=== PATIENT | male | born 1965 | race Hispanic/Latino ===

== ENCOUNTER 2020-06-27 12:20 | Observation (INO) | payer SELFPAY ==
[~2020-06-27] VITALS: Ht 167.6 cm; Wt 85.3 kg
[~2020-06-27 12:20] MED LIST: ASPIR 8181 MG; AUGMENTIN 875-1 EACH PO; CELEXA10 MG PO; ENALAPRIL MALEA20 MG PO; FENOFIBRATE145 MG PO; GLIPIZIDE XL5 MG PO; LISINOPRIL-HCT1 EACH PO; LORAZEPAM1 MG PO; METFORMIN HCL500 M2 PO; METOCLOPRAMIDE10 MG PO; METOPROLOL SUCC50 MG PO; SUMATRIPTAN SUC25 MG PO; TOPIRAMATE25 MG PO; TYLENOL WITH C1 EACH PO; ZOFRAN ODT4 MG PO
[2020-06-27] MEDS ORDERED: ONDANSETRON HCL INJ 2MG/ML 2ML 2 MG/ML VIAL IV STA (13:06)
[2020-06-27] MEDS ORDERED: ASPIRIN 325 MG TAB PO ONE (13:15)
[2020-06-27] MEDS ORDERED: ASPIRIN 81 MG CHEW TAB PO ONE (13:15)
--- NOTE | 2020-06-27 13:23 | Emergency Department Note ---
History of Present Illnes History of Present Illness Chief Complaint: Chest Pain History of Present Illness This is a 55 year old male Chief Complaint Comment PT STATED RIGHT RUBY E CHEST PAIN FOR 2 DAYS, HURTS WITH MOVEMENT AND BREATHING, PT HAS A CARDIAC HX. . Historian: Patient Arrival Mode: Car Onset (how long ago): day(s) (1) Location: right side chest pain Quality: dull Radiation: Reports non-radiation Onset quality: gradual Duration (how long): day(s) Timing of current episode: intermittent Progression: waxing and waning Context: Denies recent illness, Denies recent surgery, Denies recent immobilization, Denies recent travel, Denies trauma/injury, Denies new medications, Denies hx of DVT/PE, Denies non-compliance w/ medications, Denies other Relieving factors: none Exacerbating factors: none Associated symptoms: Reports chest pain Treatments prior to arrival: none Past Medical/Family History Physician Review I have reviewed the patient's past medical and family history. Any updates have been documented here. Past Medical History Recent Fever: No Clinical Suspicion of Infectio: No New/Unexplained Change in Ment: No Past Medical History: Hypertension, Diabetes, [place], Chronic Back Pain Other Medical History: high cholesterol Other Surgery: CARDIAC STENT Social History Smoking Cessation: Current every day smoker Counseling Performed: No Alcohol Use: None Any Illegal Drug Use: No Other Any Pre-Existing Lines (PICC,: No Review of Systems Review of Systems Constitutional: Reports no symptoms EENTM: Reports no symptoms Cardiovascular: Reports as per HPI, Reports chest pain Respiratory: Reports no symptoms Gastrointestinal: Reports no symptoms Genitourinary: Reports no symptoms Musculoskeletal: Reports no symptoms Integumentary: Reports no symptoms Neurological: Reports no symptoms Psychological: Reports no symptoms Endocrine: Reports no symptoms Hematological/Lymphatic: Reports no symptoms Physical Exam Related Data Allergies: Coded Allergies: No Known Allergies (Unverified , 03/04/16) Triage Vital Signs Vital Signs Date Time Temp Pulse Resp B/P (MAP) Pulse Ox O2 Delivery O2 Flow Rate FiO2 06/27/20 12:20 98.4 98 18 152/88 98 Vital signs reviewed: Yes Physical Exam CONSTITUTIONAL Constitutional: Present well-developed, Present well-nourished HENT HENT: Present normocephalic, Present atraumatic, Present oropharynx clear/moist, Present nose normal HENT L/R: Present left ext ear normal, Present right ext ear normal EYES Eyes: Reports PERRL, Reports conjunctivae normal NECK Neck: Present ROM normal PULMONARY Pulmonary: Present effort normal, Present breath sounds normal CARDIOVASCULAR Cardiovascular: Present regular rhythm, Present heart sounds normal, Present capillary refill normal, Present normal rate GASTROINTESTINAL Abdominal: Present soft, Present nontender, Present bowel sounds normal GENITOURINARY Genitourinary: Present exam deferred SKIN Skin: Present warm, Present dry MUSCULOSKELETAL Musculoskeletal: Present ROM normal NEUROLOGICAL Neurological: Present alert, Present oriented x 3, Present no gross motor or sensory deficits PSYCHOLOGICAL Psychological: Present mood/affect normal, Present judgement normal Results Laboratory Lab results reviewed: Yes Imaging Imaging results reviewed: Yes Procedures 12 Lead ECG Interpretation ECG Interpretation : ECG: ECG 1 [facility]: Interpreted by ED physician Date: Jun 27, 2020 Time: 12:26 Rhythm: sinus rhythm Rate: normal BPM: 78 QRS axis: normal Conduction: incomplete RBBB ST segments normal: Yes T waves normal: Yes Assessment & Plan Medical Decision Making MDM angina ACS Reassessment Reassessment BETTER Assessment & Plan Final Impression: (1) Hyperglycemia (2) Chest pain Depart Disposition: ADMITTED Last Vital Signs Date Time Temp Pulse Resp B/P (MAP) Pulse Ox O2 Delivery O2 Flow Rate FiO2 06/27/20 12:20 98.4 98 18 152/88 98 Home Meds Reported Medications Ondansetron (ZOFRAN ODT) 4 Mg Tab.rapdis, 4 MG PO Q6H, TAB 03/04/16 Acetaminophen With Codeine (TYLENOL WITH CODEINE #3 TABLET) 1 Each Tablet, 300 MG PO Q4HR, TAB 03/04/16 Amoxicillin/Potassium Clav (AUGMENTIN 875-125 TABLET) 1 Each Tablet, 875 MG PO DAILY, #30 TAB 03/04/16 Enalapril Maleate (ENALAPRIL MALEATE) 20 Mg Tablet, 10 MG PO BID 03/04/16 Aspirin (ASPIR 81) 81 Mg Tablet.dr 03/04/16 Citalopram Hydrobromide (CELEXA) 10 Mg Tablet, 1 TAB PO DAILY 03/04/16 Glipizide (GLIPIZIDE XL) 5 Mg Tab.er.24, 1 TAB PO DAILY 03/04/16 Lorazepam (LORAZEPAM) 1 Mg Tablet, 1 MG PO BID PRN for ANXIETY, TAB 03/04/16 Lisinopril/Hydrochlorothiazide (LISINOPRIL-HCTZ 20-12.5 MG TAB) 1 Each Tablet, 1 TAB PO DAILY 03/04/16 Fenofibrate Nanocrystallized (FENOFIBRATE) 145 Mg Tablet, 1 TAB PO DAILY 03/04/16 Topiramate (TOPIRAMATE) 25 Mg Tablet, 50 MG PO BID, #30 TAB 03/04/16 Metoprolol Succinate (METOPROLOL SUCCINATE) 50 Mg Tab.er.24h, 50 MG PO BID, MG 03/04/16 Sumatriptan Succinate (SUMATRIPTAN SUCCINATE) 25 Mg Tablet, 100 MG PO DAILY, #30 TAB 03/04/16 Metoclopramide Hcl (METOCLOPRAMIDE HCL) 10 Mg Tablet, 10 MG PO BID, TAB 03/04/16 Metformin Hcl (METFORMIN HCL ER) 500 Mg Tab.er.24, 1000 MG PO BID, #60 TAB 03/04/16 Medications in the ED Aspirin 325 mg QAM PO ; Start 06/28/20 at 09:00; Stop 07/28/20 at 08:59 Aspirin 81 mg PRN ONCE PO ; Start 06/27/20 at 13:15; Stop 06/27/20 at 13:16; Status DC Aspirin 325 mg ONCE ONCE PO ; Start 06/27/20 at 13:15; Stop 06/27/20 at 13:16; Status DC Morphine Sulfate 2 mg ONCE ONCE IV ; Start 06/27/20 at 13:30; Stop 06/27/20 at 13:31 Ondansetron HCl 4 mg NOW STAT IV ; Start 06/27/20 at 13:06; Stop 06/27/20 at 13:15; Status DC NEGRO PTAEL MD Jun 27, 2020 13:22
--- NOTE | 2020-06-27 13:23 | Diagnostic Imaging Report ---
EXAMINATION: CXR 1 VEW - HOPD INDICATION: Chest pain. COMPARISON: None FINDINGS: TUBES and LINES: None. LUNGS: Normal lung volumes. Lungs are clear. No consolidations. PLEURA: No pleural effusion or pneumothorax. HEART AND MEDIASTINUM: The cardiomediastinal silhouette is unremarkable. BONES AND SOFT TISSUES: No acute osseous lesion. Soft tissues are unremarkable. UPPER ABDOMEN: No free air under the diaphragm. IMPRESSION: No acute thoracic radiographic abnormality. Signed by: Griselda Nieto MD on 06/27/2020 1:19 PM
[2020-06-27] MEDS ORDERED: MORPHINE SULFATE INJ 4 MG/ML INJ 1ML IV ONE (13:30)
[2020-06-27] MEDS ORDERED: INSULIN REGULAR, HUMAN 100 UNIT/1 ML 3ML VIAL IV ONE (13:30)
--- OUTSIDE RECORDS SUMMARY | 2020-06-27 13:31 | XMS REPORT | Clinical Summary ---
Author Author [facility] Organization [facility] Address Unknown Phone Unavailable Care Team Providers Care List Of [employer] Name Role Phone Cindy Mackenzie MD PCP Allergies Comments Active Allergy Reactions Severity Noted Date Abdominal pain Acetaminophen-Codeine 02/26/2019 Medications End Date Status Medication Sig Dispensed Refills Start Date Active aspirin (ASPIRIN) 81 mg Chew and 90 tablet 3 chewable swallow 1 8 tabletIndications: tablet by [facility] care mouth daily. Active omeprazole (PRILOSEC) 20 Take 1 90 capsule 3 0 mg delayed release capsule by 9 capsuleIndications: mouth every Dysphagia, unspecified morning type (before breakfast). Active nitroGLYCERIN (NITROSTAT) Dissolve 1 100 tablet 3 0.4 mg sublingual tablet under 9 tabletIndications: H/O the tongue heart artery stent every 5 minutes as needed, up to 3 times. If chest pain persists, call 911. Active ibuprofen (MOTRIN) 400 mg Take 1 tablet 60 tablet 1 tabletIndications: Chest by mouth 9 wall pain every 6 hours as needed for Pain (take with food). Active lancets 28 1 Each 3 300 Each 3 gaugeIndications: times daily 9 Inadequately controlled Use 2 times diabetes mellitus weekly as directed. Active blood glucose test 1 Each by 300 Each 6 04/05/2 01 stripsIndications: MISCELLANEOUS 9 Inadequately controlled route 3 times diabetes mellitus daily. Active gabapentin (NEURONTIN) Take 2 180 capsule 3 100 mg capsules by 9 capsuleIndications: mouth 3 times Neuropathy daily. Active fenofibrate Take 1 tablet 90 tablet 2 nanocrystallized (TRICOR) by mouth 9 145 mg tabletIndications: daily. Hyperlipidemia, unspecified hyperlipidemia type Active blood glucose meter Use as 1 Kit 0 directed 3 9 times daily. Active metFORMIN (GLUCOPHAGE) Take 2 360 tablet 0 500 mg tabletIndications: tablets by 0 Inadequately controlled mouth 2 times diabetes mellitus daily (with meals). Active insulin detemir U-100 Inject 35 21 Pen 2 01/28 (LEVEMIR FLEXTOUCH) 100 Units under 0 unit/mL (3 mL) the skin 2 PenIndications: times daily. Inadequately controlled diabetes mellitus Active insulin aspart U-100 Inject 10 20 Pen 1 02/11 (NOVOLOG FLEXPEN U-100 Units under 0 INSULIN) 100 unit/mL (3 the skin 3 mL) penIndications: times daily Inadequately controlled (before diabetes mellitus meals). Active atorvastatin (LIPITOR) 80 Take 1 tablet 90 tablet 1 mg tabletIndications: H/O by mouth at 0 heart artery stent bedtime nightly. Active carvediloL (COREG) 3.125 Take 1 tablet 180 tablet 3 mg tabletIndications: H/O by mouth 2 0 heart artery stent times daily (with meals). Active isosorbide mononitrate Take 1 tablet 90 tablet 0 0 (IMDUR) 60 mg extended by mouth 0 release every tabletIndications: H/O morning. heart artery stent Active ticagrelor (BRILINTA) 90 Take 1 tablet 90 tablet 0 mg tabletIndications: H/O by mouth 2 0 heart artery stent times daily. Active tiotropium (SPIRIVA WITH Inhale 1 90 capsule 1 0 HANDIHALER) 18 mcg capsule by 0 inhalation mouth daily. capsuleIndications: History of emphysema Active albuterol 90 Inhale 2 8.5 g 3 mcg/actuation Puffs by 0 inhalerIndications: mouth 4 times History of emphysema daily as needed for Wheezing. Active lisinopriL (PRINIVIL, Take 1 tablet 90 tablet 3 ZESTRIL) 20 mg by mouth 0 tabletIndications: daily. Essential hypertension Active pen needle, diabetic 31 Inject under 3 Box 6 0 gauge x 3/16" the skin 4 0 needlesIndications: times daily. Inadequately controlled diabetes mellitus 02/12/2020 Discontinued (Reorder) tiotropium (SPIRIVA WITH Inhale 1 90 capsule 1 0 HANDIHALER) 18 mcg capsule by 8 inhalation mouth daily. capsuleIndications: History of emphysema 08/27/2019 tropicamide (MYDRIACYL) Instill 1 15 mL 0 0.5 % ophthalmic Drop in each 9 solutionIndications: eye once as Inadequately controlled needed for up diabetes mellitus to 1 dose (for poor retina scan image). 02/12/2020 Discontinued (Reorder) atorvastatin (LIPITOR) 80 Take 1 tablet 90 tablet 3 mg tabletIndications: H/O by mouth at 9 heart artery stent bedtime nightly. 02/12/2020 Discontinued (Reorder) carvedilol (COREG) 3.125 Take 1 tablet 90 tablet 3 mg tabletIndications: H/O by mouth 2 9 heart artery stent times daily (with meals). 02/12/2020 Discontinued (Reorder) isosorbide mononitrate Take 1 tablet 30 tablet 3 0 (IMDUR) 60 mg extended by mouth 9 release every tabletIndications: H/O morning. heart artery stent 02/12/2020 Discontinued (Reorder) ticagrelor (BRILINTA) 90 Take 1 tablet 90 tablet 1 mg tabletIndications: H/O by mouth 2 9 heart artery stent times daily. 02/12/2020 Discontinued (Reorder) metFORMIN (GLUCOPHAGE) Take 2 360 tablet 3 500 mg tabletIndications: tablets by 9 Inadequately controlled mouth 2 times diabetes mellitus daily (with meals). 06/15/2020 Discontinued (Reorder) pen needle, diabetic 31 Inject under 3 Box 6 0 gauge x 3/16" the skin 4 9 needlesIndications: times daily. Inadequately controlled diabetes mellitus 02/12/2020 Discontinued (Reorder) insulin aspart U-100 Take 3 times 20 Pen 1 06/0 7/201 (NOVOLOG FLEXPEN U-100 daily under 9 INSULIN) 100 unit/mL (3 skin if mL) penIndications: sugars Inadequately controlled 100-200- take diabetes mellitus 4 units; take 6 units if 201-250 ; take 8 units if sugars 251-300;take1 0 unit if sugars 301-350; take 12 Units if 351-400. 02/12/2020 Discontinued (Reorder) lisinopril (PRINIVIL, Take 1 tablet 90 tablet 3 ZESTRIL) 10 mg by mouth 9 tabletIndications: daily. Essential hypertension 02/12/2020 Discontinued (Reorder) insulin detemir U-100 Inject 35 21 Pen 2 03/31 (LEVEMIR FLEXTOUCH) 100 Units under 9 unit/mL (3 mL) the skin 2 PenIndications: times daily. Inadequately controlled diabetes mellitus 02/12/2020 Discontinued (Dose adjustmen t) lisinopriL (PRINIVIL, Take 1 tablet 90 tablet 0 ZESTRIL) 10 mg by mouth 0 tabletIndications: daily. Essential hypertension Active Problems Problem Noted Date Sleep apnea 02/28/2019 Anemia 02/28/2019 History of stroke 02/28/2019 H/O heart artery stent 02/28/2019 Dysphagia 02/28/2019 Vitamin D deficiency 07/14/2018 Chest pain in adult 02/11/2018 Seizure disorder- since 21 yrs age - on phenytoin ER 100 tid ; no records 11/27/2017 Neuropathy-on gabapentin 600 tid 11/27/2017 Hx of migraine headaches- on topomax 100 bid per neur ology at [facility] 11/27/2017 aria Cervical disc herniation- per MRI 04/210711/27/2017 Lumbar disc herniation with radiculopathy- per MRI 210611/27/2017 History of melena 11/27/2017 History of lupus- 3 yrs back - no records available - per pt history 11/27/2017 History of emphysema- no records 11/27/2017 History of sleep apnea - no records 11/27/2017 HTN (hypertension) 08/31/2017 Hyperlipidemia 08/31/2017 Inadequately controlled diabetes mellitus 08/31/2017 S/P coronary artery stent placement 08/31/2017 Slurred speech 08/31/2017 Lower urinary tract symptoms (LUTS) 08/31/2017 History of substance abuse- cocaine and amphetamine p er [facility] 08/31/2017 records apr 2017 Hematochezia 08/31/2017 Smoking 08/31/2017 Coronary artery disease involving nativ e coronary artery of [place] heart without angina pectoris Type 2 diabetes mellitus with diabetic polyneuropathy, with long-term current use of insulin Diabetes mellitus Right sided weakness Encounters Care Team Description Date Type Specialty Cindy Mackenzie MD Medications 06/15/2020 Refill Family Practice Cindy Mackenzie MD NO SHOW ENCOUNTER (Primary Dx) 02/26/2020 Telephonic Family Practice Encounter Cindy Mackenzie MD Respiratory symptoms (Primary Dx); Inadequately controlled diabetes mellitus; H/O heart artery stent; Essential hypertension; History of emphysema- no records 02/12/2020 Telephonic Family Practice Encounter after 06/27/2019 Immunizations Name Administration Dates Next Due Influenza Vaccine, 08/31/2017 (Deferred: Patim[place] nt Refused) Seasonal, Injectable PPV 23 (Pneumococcal 07/14/2018 (Deferred: - pt stated he received the Polysaccharide 23 Valent) vaccine last year.) Pneumococcal 10/30/2018 <Unspecified> Td <Unspecified> 10/30/2018 Family History Medical History Relation Name Comments Heart attack Father Diabetes Maternal Grandfather Heart attack Maternal Grandfather Heart attack Maternal Grandmother Diabetes Mother Diabetes Paternal Grandfather Diabetes Paternal Grandmother Heart attack Paternal Grandmother Diabetes Paternal Uncle Relation Name Status Comments Father Maternal Grandfather Maternal Grandmother Mother Paternal Grandfather Paternal Grandmother Paternal Uncle Social History Date Tobacco Use Types Packs/Day Years Used Current Every Day Smoker Smokeless Tobacco: Never Used Tobacco Cessation: Counseling Given: No Comments: would like to try nicotine patch Drinks/Week oz/Week Comments Alcohol Use 4 Cans of beer 4.0 Yes Food Insecurity Answer Date Recorded Within the past 12 months, you worried that your Never pawel e 02/28/2019 food would run out before you got money to buy more. Within the past 12 months, the food you bought Never true 02/28/2019 just didn't last and you didn't have mo michelle to get more. Sex Assigned at Date Recorded Not on file Industry Job Start Date Occupation Not on file Not on file Not on file Travel End Travel History Travel Start No recent travel history available. Last Filed Vital Signs Not on file Plan of Treatment Health Maintenance Due Date Last Done Comments Colorectal Cancer Scrn 07/12/2019 07/12/2018 Annual (FIT/FOBT) Age 50 to 75 CORONARY ARTERY DISEASE 03/19/2020 03/19/2019, AGE 18 AND UP 07/14/2018, 07/10/2018, Additional history exists DM HGBA1C (Yearly) 03/19/2020 03/19/2019, 07/10/2018, 01/09/2018, Additional history exists DM Retinal Exam (Yearly) 03/19/2020 03/19/2019 DM Foot Exam (Yearly) 03/20/2020 03/20/2019, 02/26/2019, 11/27/2017, Additional history exists IMM Influenza Seasonal 07/30/2020 Oct to December (>/= 19 yrs) Goals Goal Patient Associated Recent Progress Patient-Stat Aut hor Goal Type Problems ed? Exercise Regularly Self vickie La III, MD HBA1C < 7 Treatment No Liu Culver III, MD Results Not on fileafter 06/27/2019 Insurance Type Payer Benefit Subscriber ID Effective Phone Address Plan / Dates Group [facility] [employer]AN [employer]CIAL xxxxxxx [phone] [place], [place] [id number] [place] [address] FAMILY [facility] xxxxxxx 2020- [address] INDIGENT FAMILY 06/21/[id number] PLANNING [employer] [place] [employer] [place] INDIGENT [address] [facility] SELF-PAY SELF-PAY xxxxxxxxx 2020- [phone] [address] [place] [address] Advance Directives Date Inactivated Comments Code Status Date Activated 07/14/2018 3:29 PM Full Code 07/13/2018 4:45 PM 07/13/2018 4:45 PM Full Code 07/10/2018 12:30 AM 01/11/2018 6:31 PM Full Code 01/08/2018 9:11 AM
--- OUTSIDE RECORDS SUMMARY | 2020-06-27 13:32 | XMS REPORT | Continuity of Care Document ---
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 healthy individuals the eGFR will be >90 mL/min/1.73m2. The eGFR declines with age. An eGFR of 60-89 may be normal in some populations, particularly the elderly, for whom the CKD-EPI formula has not been extensively validated. Use of the eGFR is not recommended in the following populations:

Individuals with unstable creatinine concentrations, including patients and those with serious co-morbid conditions.

Patients with extremes in muscle mass or diet.

The data above are obtained from the National Kidney Disease Education Program (NKDEP) which additionally recommends that when the eGFR is used in patients with extremes of body mass index for purposes of drug dosing, the eGFR should be multiplied by the estimated BMI. [facility] CHEM PANEL Calcium Lvl 8.2 8.5 - 10.5 05/05/2018 [facility] CHEM PANEL CO2 20 24 - 32 05/05/2018 [facility] CHEM PANEL Glucose Lvl 167 70 - 99 05/05/2018 [facility] CHEM PANEL BUN 12 7 - 22 05/05/2018 [facility] CHEM PANEL Potassium Lvl 3.5 3.5 - 5.1 05/05/2018 [facility] CHEM PANEL Creatinine Lvl 1.08 0.50 - 1.40 05/05/2018 [facility] CHEM PANEL Chloride Lvl 105 95 - 109 05/05/2018 [facility] CHEM PANEL Sodium Lvl 136 135 - 145 05/05/2018 [facility] CHEM PANEL AGAP 14.5 10.0 - 20.0 05/05/2018 [facility] HEMATOLOGY Platelet 245 133 - 450 05/05/2018 [facility] HEMATOLOGY MPV 9.9 7.4 - 10.4 05/05/2018 [facility] HEMATOLOGY RDW 14.2 11.5 - 14.5 05/05/2018 [facility] HEMATOLOGY MCH 28.2 27.0 - 31.0 05/05/2018 [facility] HEMATOLOGY Hct 37.0 42.0 - 54.0 05/05/2018 [facility] HEMATOLOGY MCV 84.7 80.0 - 94.0 05/05/2018 [facility] HEMATOLOGY Hgb 12.3 14.0 - 18.0 05/05/2018 [facility] HEMATOLOGY MCHC 33.3 32.0 - 36.0 05/05/2018 [facility] HEMATOLOGY WBC 12.4 3.7 - 10.4 05/05/2018 [facility] HEMATOLOGY RBC 4.37 4.70 - 6.10 05/05/2018 [facility] HEMATOLOGY Monocytes # 1.0 0.0 - 0.8 05/05/2018 [facility] HEMATOLOGY Eosinophils # 0.1 0.0 - 0.5 05/05/2018 [facility] HEMATOLOGY Segs-Bands # 9.7 1.5 - 8.1 05/05/2018 [facility] HEMATOLOGY Lymphocytes # 1.5 1.0 - 5.5 05/05/2018 [facility] HEMATOLOGY Basophils 0.3 0.0 - 1.0 05/05/2018 [facility] HEMATOLOGY Eosinophils 0.8 0.0 - 4.0 05/05/2018 [facility] HEMATOLOGY Lymphocytes 12.2 20.0 - 40.0 05/05/2018 [facility] HEMATOLOGY Monocytes 8.2 2.0 - 12.0 05/05/2018 [facility] HEMATOLOGY Segs 78.5 45.0 - 75.0 05/05/2018 [facility] PARATHYROID PROFILE Ca Norm WB 1.05 1.05 - 1.25 05/05/2018 [facility] PARATHYROID PROFILE Ca Ion WB 1.10 1.05 - 1.25 05/05/2018 [facility] CHEM PANEL Phosphorus 3.6 2.5 - 4.5 05/04/2018 [facility] CHEM PANEL eGFR 82 05/04/2018 Result Comment: The eGFR is calculated using the CKD-EPI formula. In most young, healthy individuals the eGFR will be >90 mL/min/1.73m2. The eGFR declines with age. An eGFR of 60-89 may be normal in some populations, particularly the elderly, for whom the CKD-EPI formula has not been extensively validated. Use of the eGFR is not recommended in the following populations:

Individuals with unstable creatinine concentrations, including patients and those with serious co-morbid conditions.

Patients with extremes in muscle mass or diet.

The data above are obtained from the National Kidney Disease Education Program (NKDEP) which additionally recommends that when the eGFR is used in patients with extremes of body mass index for purposes of drug dosing, the eGFR should be multiplied by the estimated BMI. [facility] CHEM PANEL CO2 20 24 - 32 05/04/2018 [facility] CHEM PANEL Chloride Lvl 101 95 - 109 05/04/2018 [facility] CHEM PANEL Calcium Lvl 8.5 8.5 - 10.5 05/04/2018 [facility] CHEM PANEL Sodium Lvl 136 135 - 145 05/04/2018 [facility] CHEM PANEL Potassium Lvl 3.6 3.5 - 5.1 05/04/2018 [facility] CHEM PANEL Creatinine Lvl 1.05 0.50 - 1.40 05/04/2018 [facility] CHEM PANEL BUN 13 7 - 22 05/04/2018 [facility] CHEM PANEL Glucose Lvl 157 70 - 99 05/04/2018 [facility] CHEM PANEL AGAP 18.6 10.0 - 20.0 05/04/2018 [facility] CHEM PANEL Magnesium Lvl 1.6 1.8 - 2.4 05/04/2018 [facility] HEMATOLOGY RBC 4.64 4.70 - 6.10 05/04/2018 [facility] HEMATOLOGY MCHC 33.7 32.0 - 36.0 05/04/2018 [facility] HEMATOLOGY Platelet 260 133 - 450 05/04/2018 [facility] HEMATOLOGY RDW 14.1 11.5 - 14.5 05/04/2018 [facility] HEMATOLOGY MCH 28.7 27.0 - 31.0 05/04/2018 [facility] HEMATOLOGY MCV 85.4 80.0 - 94.0 05/04/2018 [facility] HEMATOLOGY Hgb 13.3 14.0 - 18.0 05/04/2018 [facility] HEMATOLOGY WBC 13.9 3.7 - 10.4 05/04/2018 [facility] HEMATOLOGY MPV 9.9 7.4 - 10.4 05/04/2018 [facility] HEMATOLOGY Hct 39.6 42.0 - 54.0 05/04/2018 [facility] HEMATOLOGY Eosinophils # 0.1 0.0 - 0.5 05/04/2018 [facility] HEMATOLOGY Basophils # 0.1 0.0 - 0.2 05/04/2018 [facility] HEMATOLOGY Eosinophils 0.8 0.0 - 4.0 05/04/2018 [facility] HEMATOLOGY Monocytes 8.0 2.0 - 12.0 05/04/2018 [facility] HEMATOLOGY Segs 72.9 45.0 - 75.0 05/04/2018 [facility] HEMATOLOGY Lymphocytes 17.9 20.0 - 40.0 05/04/2018 [facility] HEMATOLOGY Segs-Bands # 10.2 1.5 - 8.1 05/04/2018 [facility] HEMATOLOGY Basophils 0.4 0.0 - 1.0 05/04/2018 [facility] HEMATOLOGY Lymphocytes # 2.5 1.0 - 5.5 05/04/2018 [facility] HEMATOLOGY Monocytes # 1.1 0.0 - 0.8 05/04/2018 [facility] HEMATOLOGY PTT 37.7 22.9 - 35.8 05/04/2018 [facility] HEMATOLOGY INR 1.06 0.85 - 1.17 05/04/2018 [facility] HEMATOLOGY PT 13.8 12.0 - 14.7 05/04/2018 [facility] CARDIAC ENZYMES Troponin-I <0.02 0.00 - 0.40 05/04/2018 [facility] CARDIAC ENZYMES Troponin-T <0.010 0.000 - 0.100 05/04/2018 [facility] CARDIAC ENZYMES Total CK 230 12 - 191 05/04/2018 [facility] CARDIAC ENZYMES CK MB 3.2 0.5 - 3.6 05/04/2018 [facility] CARDIAC ENZYMES CK MB Index 1.4 0.0 - 2.5 05/04/2018 [facility] HEMATOLOGY PT 14.0 12.0 - 14.7 05/04/2018 [facility] HEMATOLOGY PTT 34.6 22.9 - 35.8 05/04/2018 [facility] HEMATOLOGY INR 1.08 0.85 - 1.17 05/04/2018 [facility] HEMATOLOGY Eosinophils # 0.1 0.0 - 0.5 05/04/2018 [facility] HEMATOLOGY Monocytes # 1.1 0.0 - 0.8 05/04/2018 [facility] HEMATOLOGY Basophils # 0.1 0.0 - 0.2 05/04/2018 [facility] HEMATOLOGY Basophils 0.5 0.0 - 1.0 05/04/2018 [facility] HEMATOLOGY Lymphocytes # 2.2 1.0 - 5.5 05/04/2018 [facility] HEMATOLOGY Segs-Bands # 12.1 1.5 - 8.1 05/04/2018 [facility] HEMATOLOGY Eosinophils 0.8 0.0 - 4.0 05/04/2018 [facility] HEMATOLOGY Monocytes 7.2 2.0 - 12.0 05/04/2018 [facility] HEMATOLOGY Lymphocytes 14.0 20.0 - 40.0 05/04/2018 [facility] HEMATOLOGY Segs 77.5 45.0 - 75.0 05/04/2018 [facility] HEMATOLOGY MCH 28.5 27.0 - 31.0 05/04/2018 [facility] HEMATOLOGY MCV 85.4 80.0 - 94.0 05/04/2018 [facility] HEMATOLOGY Hct 41.3 42.0 - 54.0 05/04/2018 [facility] HEMATOLOGY Hgb 13.8 14.0 - 18.0 05/04/2018 [facility] HEMATOLOGY RBC 4.84 4.70 - 6.10 05/04/2018 [facility] HEMATOLOGY WBC 15.7 3.7 - 10.4 05/04/2018 [facility] HEMATOLOGY MCHC 33.4 32.0 - 36.0 05/04/2018 [facility] HEMATOLOGY MPV 9.7 7.4 - 10.4 05/04/2018 [facility] HEMATOLOGY Platelet 275 133 - 450 05/04/2018 [facility] HEMATOLOGY RDW 14.6 11.5 - 14.5 05/04/2018 [facility] IMMUNOLOGY Hep C Ab Negat stalin *NA* (05/03/18 9:29 PM) 05/04/2018 [facility] IMMUNOLOGY Hep B Core IgM Negat stalin *NA* (05/03/18 9:29 PM) Negative 05/04/2018 [facility] IMMUNOLOGY Hep Bs Ag Negat stalin *NA* (05/03/18 9:29 PM) Negative 05/04/2018 [facility] IMMUNOLOGY Hep A IgM Negat stalin *NA* (05/03/18 9:29 PM) Negative 05/04/2018 [facility] MYOGLOBIN Myoglobin 112 25 - 72 05/04/2018 [facility] URINE AND STOOL UA Mucus Few /LPF None Seen /LPF 05/03/2018 [facility] URINE AND STOOL UA Bacteria Occasional /HPF None Seen /HPF 05/03/2018 [facility] URINE AND STOOL UA RBC 0-2 /HPF 0 - 2 05/03/2018 [facility] URINE AND STOOL UA WBC 0-3 05/03/2018 [facility] URINE AND STOOL UA Sq Epi Occasional /LPF Few /LPF 05/03/2018 [facility] URINE AND STOOL UA Ketones Negative mg/dL Negative mg/dL 05/03/2018 [facility] URINE AND STOOL UA Bili Negative *NA* (05/03/18 4:00 PM) Negative 05/03/2018 [facility] URINE AND STOOL UA Blood Negative (05/03/18 4:00 PM) Negative 05/03/2018 [facility] URINE AND STOOL UA Glucose >=1000 mg/dL Negative mg/dL 05/03/2018 [facility] URINE AND STOOL UA Protein Negative mg/dL Negative mg/dL 05/03/2018 [facility] URINE AND STOOL UA Nitrite Negative (05/03/18 4:00 PM) Negative 05/03/2018 [facility] URINE AND STOOL UA Leuk Est Negative (05/03/18 4:00 PM) Negative 05/03/2018 [facility] URINE AND STOOL UA Urobilinogen 0.2 0.1 - 1.0 05/03/2018 [facility] URINE AND STOOL UA Turbidity Clear (05/03/18 4:00 PM) Clear 05/03/2018 [facility] URINE AND STOOL UA Color Yellow *NA* (05/03/18 4:00 PM) Yellow 05/03/2018 [facility] URINE AND STOOL UA pH 6.0 5.0 - 8.0 05/03/2018 [facility] URINE AND STOOL UA Spec Grav 1.020 <=1.030 05/03/2018 [facility] CARDIAC ENZYMES Troponin-T <0.010 0.000 - 0.100 05/03/2018 [facility] CARDIAC ENZYMES Troponin-I <0.02 0.00 - 0.40 05/03/2018 [facility] CARDIAC ENZYMES Total CK 260 12 - 191 05/03/2018 [facility] CARDIAC ENZYMES CK MB Index 1.0 0.0 - 2.5 05/03/2018 [facility] CARDIAC ENZYMES CK MB 2.5 0.5 - 3.6 05/03/2018 [facility] CHEM PANEL Bili Total 0.4 0.2 - 1.3 05/03/2018 [facility] CHEM PANEL AST 21 0 - 37 05/03/2018 [facility] CHEM PANEL ALT 27 0 - 65 05/03/2018 [facility] CHEM PANEL Alk Phos 84 39 - 136 05/03/2018 [facility] CHEM PANEL Total Protein 7.7 6.4 - 8.4 05/03/2018 [facility] CHEM PANEL Albumin Lvl 4.2 3.5 - 5.0 05/03/2018 [facility] CHEM PANEL eGFR 78 05/03/2018 Result Comment: The eGFR is calculated using the CKD-EPI formula. In most young, healthy individuals the eGFR will be >90 mL/min/1.73m2. The eGFR declines with age. An eGFR of 60-89 may be normal in some populations, particularly the elderly, for whom the CKD-EPI formula has not been extensively validated. Use of the eGFR is not recommended in the following populations:

Individuals with unstable creatinine concentrations, including patients and those with serious co-morbid conditions.

Patients with extremes in muscle mass or diet.

The data above are obtained from the National Kidney Disease Education Program (NKDEP) which additionally recommends that when the eGFR is used in patients with extremes of body mass index for purposes of drug dosing, the eGFR should be multiplied by the estimated BMI. [facility] CHEM PANEL B/C Ratio 7 6 - 25 05/03/2018 [facility] CHEM PANEL Potassium Lvl 3.3 3.5 - 5.1 05/03/2018 [facility] CHEM PANEL Sodium Lvl 136 135 - 145 05/03/2018 [facility] CHEM PANEL CO2 25 24 - 32 05/03/2018 [facility] CHEM PANEL AGAP 15.3 10.0 - 20.0 05/03/2018 [facility] CHEM PANEL Calcium Lvl 9.5 8.5 - 10.5 05/03/2018 [facility] CHEM PANEL Creatinine Lvl 1.09 0.50 - 1.40 05/03/2018 [facility] CHEM PANEL Glucose Lvl 176 70 - 99 05/03/2018 [facility] CHEM PANEL BUN 8 7 - 22 05/03/2018 [facility] CHEM PANEL Chloride Lvl 99 95 - 109 05/03/2018 [facility] CHEM PANEL A/G Ratio 1.2 0.7 - 1.6 05/03/2018 [facility] CHEM PANEL Globulin 3.5 2.7 - 4.2 05/03/2018 [facility] HEMATOLOGY INR 1.03 0.85 - 1.17 05/03/2018 [facility] HEMATOLOGY PTT 31.1 22.9 - 35.8 05/03/2018 [facility] HEMATOLOGY PT 13.5 12.0 - 14.7 05/03/2018 [facility] HEMATOLOGY Basophils # 0.1 0.0 - 0.2 05/03/2018 [facility] IMMUNOLOGY HIV Ag/Ab 4th Gen Negat stalin *NA* (05/03/18 3:00 PM) Negative 05/03/2018 [facility] LIPIDS VLDL See Note 2 *NA* (05/03/18 3:00 PM) 05/03/2018 Result Comment: VLDL - Lucia sterol level cannot be accurately calculated due to very high triglycerides (>400 mg/dL). [facility] LIPIDS LDL (Calculated) See Note mg/dL <=99 mg/dL 05/03/2018 Result Comment: LDL cholesterol cannot b e calculated due to very high triglycerides (>400 mg/dL). Recommend Direct LDL if clinically indicated. [facility] LIPIDS HDL 29 >=61 mg/dL 05/03/2018 [facility] LIPIDS CHD Risk 7.72 4.00 - 7.30 05/03/2018 [facility] LIPIDS Chol 224 <=199 mg/dL 05/03/2018 [facility] LIPIDS Trig 784 <=149 mg/dL 05/03/2018 [facility] SPECIAL CHEMISTRY Hgb A1C 8.5 <=5.6 % 05/03/2018 [facility] DRUG SCREEN U Cocaine Scr Posi tive *ABN* (05/03/18 2:12 PM) Negative 05/03/2018 [facility] DRUG SCREEN U Benzodia Scr Nega tive *NA* (05/03/18 2:12 PM) Negative 05/03/2018 [facility] DRUG SCREEN U Liv Scr Nega tive *NA* (05/03/18 2:12 PM) Negative 05/03/2018 [facility] DRUG SCREEN U Amph Scr Posi tive *ABN* (05/03/18 2:12 PM) Negative 05/03/2018 [facility] DRUG SCREEN UDS Note See Note (05/03/18 2:12 PM) 05/03/2018 [facility] DRUG SCREEN U Phencyc Scr Nega tive *NA* (05/03/18 2:12 PM) Negative 05/03/2018 [facility] DRUG SCREEN U Opiate Scr Posi tive *ABN* (05/03/18 2:12 PM) Negative 05/03/2018 [facility] DRUG SCREEN U Cannab Scr Nega tive *NA* (05/03/18 2:12 PM) Negative 05/03/2018 [facility] CARDIAC ENZYMES Troponin-I <0.02 0.00 - 0.40 05/03/2018 [facility] CARDIAC ENZYMES CK MB Index 1.2 0.0 - 2.5 02/15/2016 [facility] CARDIAC ENZYMES CK MB 2.2 0.5 - 3.6 02/15/2016 [facility] CARDIAC ENZYMES Troponin-I <0.02 0.00 - 0.40 02/15/2016 [facility] CARDIAC ENZYMES Total CK 183 12 - 191 02/15/2016 [facility] CHEM PANEL ASPARTATE TRANSAMINASE 42 0 - 37 02/15/2016 [facility] CHEM PANEL Alk Phos 98 39 - 136 02/15/2016 [facility] CHEM PANEL Bili Total 0.6 0.2 - 1.3 02/15/2016 [facility] CHEM PANEL eGFR 97 02/15/2016 Result Comment: The eGFR is calculated using the CKD-EPI formula. In most young, healthy individuals the eGFR will be >90 mL/min/1.73m2. The eGFR declines with age. An eGFR of 60-89 may be normal in some populations, particularly the elderly, for whom the CKD-EPI formula has not been extensively validated. Use of the eGFR is not recommended in the following populations:

Individuals with unstable creatinine concentrations, including patients and those with serious co-morbid conditions.

Patients with extremes in muscle mass or diet.

The data above are obtained from the National Kidney Disease Education Program (NKDEP) which additionally recommends that when the eGFR is used in patients with extremes of body mass index for purposes of drug dosing, the eGFR should be multiplied by the estimated BMI. [facility] CHEM PANEL B/C Ratio 10 6 - 25 02/15/2016 [facility] CHEM PANEL Globulin 3.1 2.0 - 4.0 02/15/2016 [facility] CHEM PANEL Total Protein 6.8 6.4 - 8.4 02/15/2016 [facility] CHEM PANEL Albumin Lvl 3.7 3.5 - 5.0 02/15/2016 [facility] CHEM PANEL A/G Ratio 1.2 0.7 - 1.6 02/15/2016 [facility] CHEM PANEL ALT 55 0 - 65 02/15/2016 [facility] CHEM PANEL Glucose Lvl 227 70 - 99 02/15/2016 [facility] CHEM PANEL BUN 9 7 - 22 02/15/2016 [facility] CHEM PANEL Creatinine Lvl 0.92 0.50 - 1.40 02/15/2016 [facility] CHEM PANEL Sodium Lvl 136 135 - 145 02/15/2016 [facility] CHEM PANEL Potassium Lvl 4.1 3.5 - 5.1 02/15/2016 [facility] CHEM PANEL CO2 26 24 - 32 02/15/2016 [facility] CHEM PANEL Chloride Lvl 99 95 - 109 02/15/2016 [facility] CHEM PANEL AGAP 15.1 10.0 - 20.0 02/15/2016 [facility] CHEM PANEL Calcium Lvl 8.0 8.5 - 10.5 02/15/2016 [facility] HEMATOLOGY Eosinophils # 0.2 0.0 - 0.5 02/15/2016 [facility] HEMATOLOGY Basophils # 0.1 0.0 - 0.2 02/15/2016 [facility] HEMATOLOGY Segs-Bands # 4.5 1.5 - 8.1 02/15/2016 [facility] HEMATOLOGY Basophils 1.4 0.0 - 1.0 02/15/2016 [facility] HEMATOLOGY Lymphocytes # 2.3 1.0 - 5.5 02/15/2016 [facility] HEMATOLOGY Monocytes # 0.5 0.0 - 0.8 02/15/2016 [facility] HEMATOLOGY Segs 59.3 45.0 - 75.0 02/15/2016 [facility] HEMATOLOGY Eosinophils 2.8 0.0 - 4.0 02/15/2016 [facility] HEMATOLOGY Monocytes 5.9 2.0 - 12.0 02/15/2016 [facility] HEMATOLOGY Lymphocytes 30.6 20.0 - 40.0 02/15/2016 [facility] HEMATOLOGY MCH 30.9 27.0 - 31.0 02/15/2016 [facility] HEMATOLOGY Hct 41.6 42.0 - 54.0 02/15/2016 [facility] HEMATOLOGY MCV 89.2 80.0 - 94.0 02/15/2016 [facility] HEMATOLOGY Hgb 14.4 14.0 - 18.0 02/15/2016 [facility] HEMATOLOGY RBC 4.66 4.70 - 6.10 02/15/2016 [facility] HEMATOLOGY WBC 7.7 3.7 - 10.4 02/15/2016 [facility] HEMATOLOGY RDW 13.6 11.5 - 14.5 02/15/2016 [facility] HEMATOLOGY Platelet 254 133 - 450 02/15/2016 [facility] HEMATOLOGY MPV 10.1 7.4 - 10.4 02/15/2016 [facility] HEMATOLOGY MCHC 34.7 32.0 - 36.0 02/15/2016 [facility] SPECIAL CHEMISTRY Hgb A1C 8.7 <=5.6 % 02/15/2016 [facility] CARDIAC ENZYMES Troponin-I <0.02 0.00 - 0.40 02/15/2016 [facility] CARDIAC ENZYMES Total CK 216 12 - 191 02/15/2016 [facility] CARDIAC ENZYMES CK MB Index 1.1 0.0 - 2.5 02/15/2016 [facility] CARDIAC ENZYMES CK MB 2.3 0.5 - 3.6 02/15/2016 [facility] DRUG SCREEN UDS Note See Note (02/14/16 3:05 PM) 02/14/2016 [facility] DRUG SCREEN U Opiate Scr Posi tive *ABN* (02/14/16 3:05 PM) Negative 02/14/2016 [facility] DRUG SCREEN U Phencyc Scr Nega tive *NA* (02/14/16 3:05 PM) Negative 02/14/2016 [facility] DRUG SCREEN U Cannab Scr Nega tive *NA* (02/14/16 3:05 PM) Negative 02/14/2016 [facility] DRUG SCREEN U Cocaine Scr Posi tive *ABN* (02/14/16 3:05 PM) Negative 02/14/2016 [facility] DRUG SCREEN U Benzodia Scr Nega tive *NA* (02/14/16 3:05 PM) Negative 02/14/2016 [facility] DRUG SCREEN U Amph Scr Nega tive *NA* (02/14/16 3:05 PM) Negative 02/14/2016 [facility] DRUG SCREEN U Liv Scr Nega tive *NA* (02/14/16 3:05 PM) Negative 02/14/2016 [facility] URINE AND STOOL UA Blood Negative (02/14/16 3:05 PM) Negative 02/14/2016 [facility] URINE AND STOOL UA Urobilinogen 0.2 0.1 - 1.0 02/14/2016 [facility] URINE AND STOOL UA Ketones Negative *NA* (02/14/16 3:05 PM) Negative 02/14/2016 [facility] URINE AND STOOL UA Bili Negative *NA* (02/14/16 3:05 PM) Negative 02/14/2016 [facility] URINE AND STOOL UA Turbidity Clear (02/14/16 3:05 PM) Clear 02/14/2016 [facility] URINE AND STOOL UA Color Yellow *NA* (02/14/16 3:05 PM) Yellow 02/14/2016 [facility] URINE AND STOOL UA pH 5.5 5.0 - 8.0 02/14/2016 [facility] URINE AND STOOL UA Protein Negative (02/14/16 3:05 PM) Negative 02/14/2016 [facility] URINE AND STOOL UA Spec Grav >=1.030 *ABN* (02/14/16 3:05 PM) <=1.030 02/14/2016 [facility] URINE AND STOOL UA Glucose >=1000 mg/dL Negative mg/dL 02/14/2016 [facility] URINE AND STOOL UA Mucus Rare /LPF None Seen /LPF 02/14/2016 [facility] URINE AND STOOL UA RBC 0-2 /HPF 0 - 2 02/14/2016 [facility] URINE AND STOOL UA Bacteria Occasional /HPF None Seen /HPF 02/14/2016 [facility] URINE AND STOOL UA Nitrite Negative (02/14/16 3:05 PM) Negative 02/14/2016 [facility] URINE AND STOOL UA Sq Epi Rare /LPF Few /LPF 02/14/2016 [facility] URINE AND STOOL UA Leuk Est Negative (02/14/16 3:05 PM) Negative 02/14/2016 [facility] URINE AND STOOL Micro? Performed (02/14/16 3:05 PM) 02/14/2016 [facility] URINE AND STOOL UA WBC 0-2 /HPF None Seen /HPF 02/14/2016 [facility] CARDIAC ENZYMES Total CK 302 12 - 191 02/14/2016 [facility] CARDIAC ENZYMES CK MB 3.3 0.5 - 3.6 02/14/2016 [facility] CARDIAC ENZYMES Troponin-I <0.02 0.00 - 0.40 02/14/2016 [facility] CARDIAC ENZYMES CK MB Index 1.1 0.0 - 2.5 02/14/2016 [facility] CHEM PANEL eGFR 73 02/14/2016 Result Comment: The eGFR is calculated using the CKD-EPI formula. In most young, healthy individuals the eGFR will be >90 mL/min/1.73m2. The eGFR declines with age. An eGFR of 60-89 may be normal in some populations, particularly the elderly, for whom the CKD-EPI formula has not been extensively validated. Use of the eGFR is not recommended in the following populations:

Individuals with unstable creatinine concentrations, including patients and those with serious co-morbid conditions.

Patients with extremes in muscle mass or diet.

The data above are obtained from the National Kidney Disease Education Program (NKDEP) which additionally recommends that when the eGFR is used in patients with extremes of body mass index for purposes of drug dosing, the eGFR should be multiplied by the estimated BMI. [facility] CHEM PANEL Globulin 3.5 2.0 - 4.0 02/14/2016 [facility] CHEM PANEL A/G Ratio 1.1 0.7 - 1.6 02/14/2016 [facility] CHEM PANEL B/C Ratio 7 6 - 25 02/14/2016 [facility] CHEM PANEL Bili Total 0.2 0.2 - 1.3 02/14/2016 [facility] CHEM PANEL Alk Phos 101 39 - 136 02/14/2016 [facility] CHEM PANEL AST 28 0 - 37 02/14/2016 [facility] CHEM PANEL ALT 51 0 - 65 02/14/2016 [facility] CHEM PANEL Albumin Lvl 3.7 3.5 - 5.0 02/14/2016 [facility] CHEM PANEL AGAP 12.6 10.0 - 20.0 02/14/2016 [facility] CHEM PANEL Calcium Lvl 8.2 8.5 - 10.5 02/14/2016 [facility] CHEM PANEL CO2 24 24 - 32 02/14/2016 [facility] CHEM PANEL Chloride Lvl 101 95 - 109 02/14/2016 [facility] CHEM PANEL Potassium Lvl 3.6 3.5 - 5.1 02/14/2016 [facility] CHEM PANEL Total Protein 7.2 6.4 - 8.4 02/14/2016 [facility] CHEM PANEL Sodium Lvl 134 135 - 145 02/14/2016 [facility] CHEM PANEL Creatinine Lvl 1.18 0.50 - 1.40 02/14/2016 [facility] CHEM PANEL BUN 8 7 - 22 02/14/2016 [facility] CHEM PANEL Glucose Lvl 271 70 - 99 02/14/2016 [facility] HEMATOLOGY MCHC 34.5 32.0 - 36.0 02/14/2016 [facility] HEMATOLOGY RDW 13.7 11.5 - 14.5 02/14/2016 [facility] HEMATOLOGY Platelet 299 133 - 450 02/14/2016 [facility] HEMATOLOGY MPV 10.0 7.4 - 10.4 02/14/2016 [facility] HEMATOLOGY RBC 4.74 4.70 - 6.10 02/14/2016 [facility] HEMATOLOGY Hct 42.7 42.0 - 54.0 02/14/2016 [facility] HEMATOLOGY MCH 31.1 27.0 - 31.0 02/14/2016 [facility] HEMATOLOGY Hgb 14.7 14.0 - 18.0 02/14/2016 [facility] HEMATOLOGY MCV 90.1 80.0 - 94.0 02/14/2016 [facility] HEMATOLOGY WBC 8.7 3.7 - 10.4 02/14/2016 [facility] HEMATOLOGY INR 0.90 0.85 - 1.17 02/14/2016 [facility] HEMATOLOGY PT 12.4 12.0 - 14.7 02/14/2016 [facility] HEMATOLOGY PTT 31.8 22.9 - 35.8 02/14/2016 [facility] HEMATOLOGY Segs 67.7 45.0 - 75.0 02/14/2016 [facility] HEMATOLOGY Lymphocytes 23.2 20.0 - 40.0 02/14/2016 [facility] HEMATOLOGY Monocytes 6.4 2.0 - 12.0 02/14/2016 [facility] HEMATOLOGY Eosinophils 2.0 0.0 - 4.0 02/14/2016 [facility] HEMATOLOGY Basophils 0.7 0.0 - 1.0 02/14/2016 [facility] HEMATOLOGY Lymphocytes # 2.0 1.0 - 5.5 02/14/2016 [facility] HEMATOLOGY Eosinophils # 0.2 0.0 - 0.5 02/14/2016 [facility] HEMATOLOGY Segs-Bands # 5.9 1.5 - 8.1 02/14/2016 [facility] HEMATOLOGY Monocytes # 0.6 0.0 - 0.8 02/14/2016 [facility] HEMATOLOGY Basophils # 0.1 0.0 - 0.2 02/14/2016 [facility] IMMUNOLOGY CDC HIV 4th GEN Negat stalin (02/14/16 2:28 PM) Negative 02/14/2016 [facility] LIPIDS CHD Risk 12.82 4.00 - 7.30 02/14/2016 [facility] LIPIDS HDL 22 >=61 mg/dL 02/14/2016 [facility] LIPIDS Trig 1846 <=149 mg/dL 02/14/2016 [facility] LIPIDS Chol 282 <=199 mg/dL 02/14/2016 [facility] LIPIDS VLDL See Note 2 *NA* (02/14/16 2:28 PM) 02/14/2016 Result Comment: VLDL - Cholesterol level cannot be accurately calculated due to very high triglycerides (>400 mg/dL). [facility] LIPIDS LDL (Calculated) See Note mg/dL <=99 mg/dL 02/14/2016 Result Comment: LDL cholesterol cannot b e calculated due to very high triglycerides (>400 mg/dL). Recommend Direct LDL if clinically indicated. [facility] TOXICOLOGY Etoh (%) <0.003 02/14/2016 [facility] TOXICOLOGY Ethanol Lvl <3 02/14/2016 [facility] CARDIAC ENZYMES Troponin-I <0.02 0.00 - 0.40 11/12/2015 [facility] CARDIAC ENZYMES Troponin-I <0.02 0.00 - 0.40 11/12/2015 [facility] CARDIAC ENZYMES CK MB 2.4 0.5 - 3.6 11/12/2015 [facility] CARDIAC ENZYMES Total CK 179 12 - 191 11/12/2015 [facility] CARDIAC ENZYMES CK MB Index 1.3 0.0 - 2.5 11/12/2015 [facility] CHEM PANEL eGFR 64 11/12/2015 Result Comment: The eGFR is calculated using the CKD-EPI formula. In most young, healthy individuals the eGFR will be >90 mL/min/1.73m2. The eGFR declines with age. An eGFR of 60-89 may be normal in some populations, particularly the elderly, for whom the CKD-EPI formula has not been extensively validated. Use of the eGFR is not recommended in the following populations:

Individuals with unstable creatinine concentrations, including patients and those with serious co-morbid conditions.

Patients with extremes in muscle mass or diet.

The data above are obtained from the National Kidney Disease Education Program (NKDEP) which additionally recommends that when the eGFR is used in patients with extremes of body mass index for purposes of drug dosing, the eGFR should be multiplied by the estimated BMI. [facility] CHEM PANEL Creatinine Lvl 1.31 0.50 - 1.40 11/12/2015 [facility] CHEM PANEL BUN 8 7 - 22 11/12/2015 [facility] CHEM PANEL Glucose Lvl 210 70 - 99 11/12/2015 [facility] CHEM PANEL AGAP 11.8 10.0 - 20.0 11/12/2015 [facility] CHEM PANEL Bili Total 0.2 0.2 - 1.3 11/12/2015 [facility] CHEM PANEL Sodium Lvl 134 135 - 145 11/12/2015 [facility] CHEM PANEL Total Protein 7.5 6.4 - 8.4 11/12/2015 [facility] CHEM PANEL Calcium Lvl 8.4 8.5 - 10.5 11/12/2015 [facility] CHEM PANEL CO2 24 24 - 32 11/12/2015 [facility] CHEM PANEL Chloride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 symphysis pubis after the administration of intravenous contrast. Axial, sagittal and coronal reformats are provided. Delayed images through the abdomen were acquired. COMPARISON: None available. FINDINGS: Bilateral lung bases are clear without pleural effusions. Liver is diffusely fatty. The liver, spleen, gallbladder, bilateral adrenal glands, pancreas, and bilateral kidneys are within normal limits. No subdiaphragmatic lymphadenopathy is seen. No intraperitoneal free air or fluid is identified. The large and small bowel are normal in caliber. The appendix is normal. Bladder wall thickening is likely related to incomplete distention. No osseous destructive lesions are seen. IMPRESSION: 1. No acute intra-abdominal abnormality seen 2. Hepatic steatosis. SL: 12 11/12/2015 [facility] Chest 1view DX Examination: est x-ray, single view History: Chest pain Comparison: 02/02/2015 Findings: The lungs are clear and without focal consolidation. The cardiomediastinal silhouette is within normal limits. No pleural effusion or pneumothorax is seen. The osseous structures are without focal abnormality. IMPRESSION: No acute cardiopulmonary disease. SL: 16 11/12/2015 [facility] Brain wo contrast CT Name: CORNELIO DANIEL : 1965 Ordering Physician: Cornel Griffin Brain wo contrast CT : Nov 20, 2014 11:37:00 PM. CLINICAL INDICATION: Headache with Dizziness and Giddiness Comparison Examination: None. TECHNIQUE: CT of the head was performed without administration of intravenous contrast. Coronal and sagittal reconstructions were obtained and provided as separate series. Total DLP = 1065.0 mGy/cm FINDINGS: The ventricles are normal in size and shape. The sulcal pattern is normal and the basal cisterns are patent. There is no CT evidence of acute intracranial hemorhhage, mass, mass effect, or midline shift. There is no skull fracture. Retained mucous cyst versus polyp is noted within the right maxillary sinus. The remaining visualized paranasal sinuses and mastoid air cells are well pneumatized. There is no CT evidence of stroke. If there is continued concern, MRI should be performed for further assessment. IMPRESSION: No CT evidence of acute intracranial process. SL: 24 11/20/2014 [facility] Consultation Notes No Data Provided for This Section Discharge Summaries No Data Provided for This Section History and Physicals No Data Provided for This Section Vital Signs Vital Sign Value Date Comments Source Systolic (mm Hg) 114 05/05/2018 [facility] Diastolic (mm Hg) 68 05/05/2018 [facility] Systolic (mm Hg) 125 05/05/2018 [facility] Diastolic (mm Hg) 76 05/05/2018 [facility] Systolic (mm Hg) 127 05/05/2018 [facility] Diastolic (mm Hg) 73 05/05/2018 [facility] Respitory Rate 20 05/05/2018 [facility] Temperature Oral (F) 98.7 F 05/05/2018 [facility] Respitory Rate 20 05/05/2018 [facility] Temperature Oral (F) 97.6 F 05/05/2018 [facility] Temperature Oral (F) 97.2 F 05/05/2018 [facility] Respitory Rate 27 05/04/2018 [facility] BMI Calculated 31.18 05/04/2018 [facility] Height 167.64 cm 05/04/2018 [facility] Weight 87.636 05/04/2018 [facility] Weight 81.818 05/03/2018 [facility] Height 167.64 cm 05/03/2018 [facility] BMI Calculated 29.11 05/03/2018 [facility] Heart Rate 107 05/03/2018 [facility] Heart Rate 88 03/17/2017 [facility] Temperature Oral (F) 98.0 F 03/17/2017 [facility] Systolic (mm Hg) 146 03/17/2017 [facility] Diastolic (mm Hg) 98 03/17/2017 [facility] Rate 18 03/17/2017 [facility] BMI Calculated 29.76 03/16/2017 [facility] Weight 83.636 03/16/2017 [facility] Height 167.64 cm 03/16/2017 [facility] Temperature Oral (F) 97.9 F 03/16/2017 [facility] Systolic (mm Hg) 155 03/16/2017 [facility] Diastolic (mm Hg) 106 03/16/2017 [facility] Heart Rate 96 03/16/2017 [facility] Rate 16 03/16/2017 [facility] Systolic (mm Hg) 151 02/15/2016 [facility] Diastolic (mm Hg) 86 02/15/2016 [facility] Temperature Oral (F) 97.4 F 02/15/2016 [facility] Respitory Rate 20 02/15/2016 [facility] Systolic (mm Hg) 145 02/15/2016 [facility] Diastolic (mm Hg) 91 02/15/2016 [facility] Heart Rate 71 02/15/2016 [facility] Temperature Oral (F) 97.8 F 02/15/2016 [facility] Heart Rate 65 02/15/2016 [facility] Respitory Rate 20 02/15/2016 [facility] Systolic (mm Hg) 157 02/15/2016 [facility] Diastolic (mm Hg) 101 02/15/2016 [facility] Heart Rate 76 02/15/2016 [facility] Respitory Rate 20 02/15/2016 [facility] Temperature Oral (F) 98.2 F 02/15/2016 [facility] Weight 95.455 02/15/2016 [facility] BMI Calculated 33.97 02/15/2016 [facility] Height 167.64 cm 02/15/2016 [facility] BMI Calculated 26.36 02/14/2016 [facility] Height 167.64 cm 02/14/2016 [facility] Weight 74.091 02/14/2016 [facility] Temperature Oral (F) 97.5 F 11/12/2015 [facility] Systolic (mm Hg) 133 11/12/2015 [facility] Diastolic (mm Hg) 71 11/12/2015 [facility] Respitory Rate 18 11/12/2015 [facility] Systolic (mm Hg) 104 11/12/2015 [facility] Diastolic (mm Hg) 49 11/12/2015 [facility] Temperature Oral (F) 98.3 F 11/12/2015 [facility] Respitory Rate 17 11/12/2015 [facility] Temperature Oral (F) 98.4 F 11/12/2015 [facility] Systolic (mm Hg) 124 11/12/2015 [facility] Diastolic (mm Hg) 77 11/12/2015 [facility] Respitory Rate 18 11/12/2015 [facility] Heart Rate 97 11/12/2015 [facility] BMI Calculated 34.77 11/12/2015 [facility] Height 167.64 cm 11/12/2015 [facility] Weight 97.727 11/12/2015 [facility] Heart Rate 95 11/12/2015 [facility] Weight 204 09/01/2015 eCW: [facility] Height 63 1 11/01/2014 eCW: [facility] Diastolic (mm Hg) 85 09/01/2015 eCW: [facility] Systolic (mm Hg) 145 09/01/2015 eCW: [facility] Systolic (mm Hg) 107 06/23/2015 [facility] Diastolic (mm Hg) 70 06/23/2015 [facility] Respitory Rate 18 06/23/2015 [facility] Temperature Oral (F) 97.8 F 06/23/2015 [facility] Heart Rate 62 06/23/2015 [facility] Systolic (mm Hg) 124 06/23/2015 [facility] Diastolic (mm Hg) 76 06/23/2015 [facility] Heart Rate 81 06/23/2015 [facility] Respitory Rate 20 06/23/2015 [facility] Temperature Oral (F) 97.9 F 06/23/2015 [facility] BMI Calculated 33.32 06/23/2015 [facility] Weight 93.636 06/23/2015 [facility] Height 167.64 cm 06/23/2015 [facility] Systolic (mm Hg) 108 02/03/2015 [facility] Diastolic (mm Hg) 63 02/03/2015 [facility] Heart Rate 67 02/03/2015 [facility] Respitory Rate 20 02/03/2015 [facility] Temperature Oral (F) 98.1 F 02/03/2015 [facility] Temperature Oral (F) 98.1 F 02/03/2015 [facility] Height 167.64 cm 02/03/2015 [facility] Systolic (mm Hg) 129 02/03/2015 [facility] Diastolic (mm Hg) 77 02/03/2015 [facility] Respitory Rate 18 02/03/2015 [facility] Temperature Oral (F) 97.6 F 02/03/2015 [facility] Heart Rate 75 02/03/2015 [facility] Heart Rate 67 02/03/2015 [facility] Respitory Rate 18 02/03/2015 [facility] Systolic (mm Hg) 120 02/03/2015 [facility] Diastolic (mm Hg) 70 02/03/2015 [facility] Weight 95.994 02/03/2015 [facility] BMI Calculated 34.16 02/03/2015 [facility] Height 167.64 cm 02/03/2015 [facility] Heart Rate 68 11/21/2014 [facility] Respitory Rate 16 11/21/2014 [facility] Systolic (mm Hg) 132 11/21/2014 [facility] Diastolic (mm Hg) 66 11/21/2014 [facility] Diastolic (mm Hg) 68 11/21/2014 [facility] Systolic (mm Hg) 138 11/21/2014 [facility] Respitory Rate 18 11/21/2014 [facility] Heart Rate 72 11/21/2014 [facility] Systolic (mm Hg) 154 11/21/2014 [facility] Diastolic (mm Hg) 75 11/21/2014 [facility] Respitory Rate 18 11/21/2014 [facility] Heart Rate 74 11/21/2014 [facility] Temperature Oral (F) 98.2 F 11/21/2014 [facility] Weight 93.091 11/21/2014 [facility] BMI Calculated 33.12 11/21/2014 [facility] Height 167.64 cm 11/21/2014 [facility] Encounters Location Location Details Encounter Type Encounter Number Reason For Visit Attending Provider ADM Date DC Date Status Source [facility] [id number] Cornel Griffin 11/21/2014 11/21/2014 [facility] [id number] 01/13/20 15 01/12/2015 [facility] [id number] 01/13/20 15 01/12/2015 eCW: [facility] [id number] 01/13/20 15 01/12/2015 eCW: [facility] OBS Observation Patient [id number] Sheikh Lin 02/03/2015 02/03/2015 [facility] UNDELIVERABLE STATEMENTS [id number] 03/17/2015 03/17/2015 [facility] UNDELIVERABLE STATEMENTS [id number] 03/17/2015 03/17/2015 eCW: [facility] UNDELIVERABLE STATEMENTS [id number] 03/17/2015 03/17/2015 eCW: [facility] [id number] Bud Aguila 06/23/2015 06/23/2015 [facility] OPHTHALMIC SURGICAL ASSISTANT [id number] 09/01/2015 09/01/2015 eCW: [facility] OPHTHALMIC SURGICAL ASSISTANT [id number] 09/01/2015 09/01/2015 eCW: [facility] [id number] Vargas Gutierrezvidaljosh 11/12/2015 11/12/2015 [facility] OBS Observation Patient [id number] Khari Teague 0 02/14/2016 02/16/2016 [facility] Unknown [id number] 02/25/20 16 02/25/2016 eCW: [facility] Emergency [id number] Kaitlin Hou 03/16/2017 03/17/2017 [facility] Inpatient [id number] Mg Anderson 05/03/2018 05/05/2018 [facility] Procedures Procedure Code Date Perfomer Comments Source Stent placement [id number] [facility] Angiogram [id number] [facility] Stent placement<sup>1</sup> 10 [id number] Placed las t year [facility] Assessment and Plan Assessment and Plan Date Source Extracted from:Title: [facility] History and P hysical Author: Noe Og MD Date: 05/03/18 Patient: LEROY HERNANDEZ## Age: 53 years Sex: Male : 1965 Associated Diagnoses: None Author: Noe Og MD Basic Information Advance directive: Full code. History of Present Illness Patient is a 53 y/o male with PMH of CAD, [place] s/p PCI with 1 stent placed to unknown vessel in 2014, s/p PCI to RCA in december 2017 in [place], HTN, DM, HLD, seizure, fatty liver, migraine and obesity presenting with chest pain and shortness of breath. He said he had an episode of chest pain with diaphoresis when he woke up in this morning and then he had another sever episode when he was at court. He describes his chest pain as sub-sternal squeezing chest pain, 8/10 in intensity, radiating to left arm and jaw, which mildly has been improved after taking SL nitorglycerinx2. He feels nauseous and has vomited once before arrival. Pt denies orthopnea or leg swelling. He has been having a few occasions of milder chest pains and SOB on exertion during last 2 years Review of Systems Constitutional: patient is in moderate chest pain and complains of SOB., Police is on his bedside and patient is handcuffed (brought from court due to financial issues), No fever. Eye: Negative. Ear/Nose/Mouth/Throat: Negative. Respiratory: Shortness of breath, , No cough, No sputum production. Cardiovascular: No bradycardia, No peripheral edema, No syncope Chest pain: Left sided, Midsternal. Gastrointestinal: Nausea, No vomiting, No abdominal pain. Genitourinary: Negative. Hematology/Lymphatics: Negative. Endocrine: Negative. Immunologic: Negative. Musculoskeletal: No neck pain, No joint pain, No muscle pain, No trauma. Integumentary: No rash, No petechiae. Neurologic: Alert and oriented X4, feeling cold in his feet. Psychiatric: Negative, looks anxious. Health Status Allergies: Allergic Reactions (All) Severity Not Documented NKDA- No reactions were documented. Current medications: Medications (5) Active Scheduled: (1) metoprolol 25 mg, PO, Daily Continuous: (2) heparin 25,000 unit in 1/2 NS 500 mL 25,000 unit [12 unit/kg/hr] + Premix Diluent Sodium Chloride 0 500 mL, IV, 17.04 ml/hr nitroglycerin 100 mg/250ml D5W INJ 100 mg 100 mg 250 mL, IV PRN: (2) heparin 1000 unit/1ml 10 ml INJ VL 4,300 unit 4.3 mL, IVP, PRN heparin 1000 unit/1ml 10 ml INJ VL 2,100 unit 2.1 mL, IVP, PRN Problem list: Active Problems (5) Cirrhosis of liver Diabetes Hypertension Lupus Seizure , Hyperlipidemia, CAD, Migraine Home Medications: ASA Brilinta Gabapentin Dilantin Topomax Metoprolol Insulin Histories Family History: Father Heart attack Mother History is negative. Procedure history: Angiogram ([id number]). Stent placement ([id number]). Comments: 02/15/2016 07:34 - Lauro Vigil Placed last year Social History Social and Psychosocial Habits Alcohol Use: Current Frequency: 8 beers per week Substance Abuse Use: cocain and meth. Last use 3 weeks ago Tobacco Use: Smoker, 1 pack per day since age of 20 Type: Cigarettes Previous treatment: None Ready to change: No Exposure to Tobacco Smoke yes Cigarette Smoking Last 365 Days yes Reg Smoking Cessation Counseling yes . Family/ Social situation: , living with mother. Physical Examination Intake and Output I/O Intake Output Balance 05/03/2018 7a-3p 0.00 0.00 0.00 3p-11p 0.00 500.00 -500.00 As of 16:07 11p-7a 0.00 0.00 0.00 Totals 0.00 500.00 -500.00 05/02/2018 7a-3p 0.00 0.00 0.00 3p-11p 0.00 0.00 0.00 11p-7a 0.00 0.00 0.00 Totals 0.00 0.00 0.00 05/01/2018 7a-3p 0.00 0.00 0.00 3p-11p 0.00 0.00 0.00 11p-7a 0.00 0.00 0.00 Totals 0.00 0.00 0.00 VS/Measurements Vital Signs (last 24 hrs) Last Charted Temp Oral 98.7 DegF (MAY 03:30) Heart Rate Apical 86 bpm (MAY 03:) Resp Rate 20 BRMIN (MAY 03:) SBP H 178mmHg (MAY 03:) DBP H 100mmHg (MAY 03:) SpO2 99 % (MAY 03:) Weight 81.818 kg (MAY 03:) Height 167.64 cm (VIPIN 05 10:21) BMI 29.11 (MAY 03 10:21) General: Moderate distress. Eye: Pupils are equal, round and reactive to light, Extraocular movements are intact, Normal conjunctiva, Vision unchanged. HENT: Normocephalic, Tympanic membranes are clear, Oral mucosa is moist, No pharyngeal erythema. Neck: Supple, No carotid bruit, No jugular venous distention, No lymphadenopathy, No thyromegaly. Respiratory: Lungs are clear to auscultation, Symmetrical chest wall expansion. Cardiovascular: Regular rhythm, No murmur, Normal peripheral perfusion, No edema. Gastrointestinal: Soft, Non-tender, Non-distended. Musculoskeletal Normal range of motion. Normal strength. No tenderness. No swelling. Integumentary: Intact, No pallor, No rash. Neurologic: Alert, Oriented, Normal sensory, Normal motor function, Cranial Nerves II-XII are grossly intact. Cognition and Speech: Oriented, Speech clear and coherent. Psychiatric: Cooperative, Appropriate mood and affect. Review / Management Results review: Labs (Last four charted values) WBC H 12.1 (MAY 03) H 11.9 (MAY 03) H 11.4 (MAY 03) Hgb 14.9 (MAY 03) 14.8 (MAY 03) 14.4 (MAY 03) Hct 44.3 (MAY 03) 44.2 (MAY 03) 42.1 (MAY 03) Plt 305 (MAY 03) 313 (MAY 03) 261 (MAY 03) Na 136 (MAY 03) L 132 (MAY 03) K L 3.3 (MAY 03) 5.1 (MAY 03) CO2 25 (MAY 03) L 21 (MAY 03) Cl 99 (MAY 03) 99 (MAY 03) Cr 1.09 (MAY 03) 0.97 (MAY 03) BUN 8 (MAY 03) 7 (MAY 03) Glucose Random H 176 (MAY 03) H 279 (MAY 03) Ca 9.5 (MAY 03) 8.7 (MAY 03) PT 13.5 (MAY 03) INR 1.03 (MAY 03) PTT 31.1 (MAY 03) Troponin <0.02 (MAY 03) <0.02 (MAY 03) CK MB 2.5 (MAY 03) Total CK H 260 (MAY 03) . Lines and Tubes: (no lines, tubes, drains information documented) . Impression and Plan CCU/CIMU Daily Patient Safety Checklist Yes No Comments (free text) CAD/CHF/PCI Requirements: 1. ASA x 2. AMAURI Inhibitor or ARB x 3. Beta Devora x 4. Statin x 5. DAPT post PCI? 6. Renal Protection Fluid Protocol Post- PCI? x Blood Stream Infection Prevention: 1. Central Line necessity addressed? x CAUTI Prevention: 1. [place] necessity addressed? x DVT Prevention: 1. VTE Advisor Completed on admission an d DVT ppx? x Nutrition: 1. Enteral Feeding within 48hr? x Blood Glucose Control: 1. 60mg/dl < BG< 200mg/dl? Discharge Plannin. PT/OT? 2. Cardiac Rehab? 3. Case Management/Social Work Consult? 4. Restraints assessed/reordered? Diagnosis 53 y/o male with PMH of CAD, [place] s/[place] PCI with 1 stent placed to unknown vessel in 2014, s/p PCI to [place] in de[place] 2017 [place], HTN, DM, HLD, seizure, fatty liver, migraine and obesity presenting with sub sternal, squeezing chest pain radiating to left arm and jaw 8/10 in intensity and shortness of breath. +nausea and vomiting Plan and Assessment: # ACS Ruleout - Troponin <0.02 x2 - Stat ECG: no signifact change - ECG and Troponin q4h x 3 - Heparin gtt - Nitroglycerin gtt for CP and BP contro l - Continue ASA 81 mg - TTE pending - NPO : May need LHC if CP persists # CAD - Hx of PCI to unknown vessel in 2014 an d another PCI to RCA in december 2017 - [place] in 2014 - Continue home Brilinta 90 q12h - Heparin gtt # HTN - BP elevated on admission - Start Metoprolol 25mg PO/daily # DM -A1c pending - SSI # HLD -Lipid panel pending -Will start back on home Crestor # Seizure -Hx of seizure in past -Will continue Dilantin 100mg TID Code:Full Diet:NPO DVT ppx:Heparin gtt Dispo:Pending diagnostic tests and imagings Addendum by Mg Anderson MD on 05/04/2018 21:51 ATTENDING ADDENDUM I have seen and examined the patient. Furthermore, I have reviewed the resident's/fellow's note dated today, and I agree with the assessment and plan. I have personally reviewed the laboratory results, radiology results, and tracings. Dr. Mg Anderson MD #[id number] 05/05/2018 [facility] Plan of Care No Data Provided for This Section Social History Social History Date Source Social History ElementQualifiersDate Rep orted Exercisie . Do you exercise? No Walks a lot at [place] Sep 01, 2015 Sexual Activity . with a woman Sep 01, 2015 Smoking . Are you a: Current Smoker 1/2 pack a day, How many cigarettes do you smoke daily: 10 Sep 01, 2015 Drug Use . Do you use recreational drugs? No Sep 01, 2015 Diet . Are you on a diet? No Sep 01, 2015 Caffeine . Do you drink caffeine? Yes, What kind ? soda, How much? 1-3 cups daily Sep 01, 2015 Alcohol . Do you drink alcohol? Yes, How often? Monthly 3x, How much? 5 or more beers, What kind? beer Sep 01, 2015 Marital Status . Sep 01, 2015 Employment . Employed Sep 01, 2015 09/01/2015 eCW: [facility] Social History TypeResponse Substance Abuse Use: None. Alcohol Current, Frequency: 1-2 times per month. Smoking Status Current every day smoker; Type: Cigarettes; Exposure to Tobacco Smoke None; Cigarette Smoking Last 365 Days Yes; Reg Smoking Cessation Counseling No 02/03/2015 [facility] Social History TypeResponse Substance Abuse Use: None. Alcohol Current, Frequency: 1-2 times per month. Smoking Status Current every day smoker; Type: Cigarettes; Exposure to Tobacco Smoke None; Cigarette Smoking Last 365 Days Yes; Reg Smoking Cessation Counseling No 02/03/2015 [facility] Social History TypeResponse Substance Abuse Use: None. Alcohol Current, Frequency: 1-2 times per month. Smoking Status Current every day smoker; Type: Cigarettes; Exposure to Tobacco Smoke None; Cigarette Smoking Last 365 Days Yes; Reg Smoking Cessation Counseling No entered on: 05/03/18 02/03/2015 [facility] Social History ElementQualifiersDate Rep orted Marital Status: . Dec 08, 2014 Drug use: no. Dec 08, 2014 Tobacco Use: . Are you a: current smoker 1/2 PPD. Sm oking since age 19. 1/2 PPD avg Dec 08, 2014 Alcohol: socially. Dec 08, 2014 12/08/2014 [facility] Social History TypeResponse Smoking Status Current every day smoker, Type: Cigarettes, Exposure to Tobacco Smoke None, Cigarette Smoking Last 365 Days Yes, Reg Smoking Cessation Counseling No 11/21/2014 [facility] Family History No Data Provided for This Section Advance Directives No Data Provided for This Section Functional Status No Data Provided for This Section
--- OUTSIDE RECORDS SUMMARY | 2020-06-27 13:33 | XMS REPORT | Continuity of Care Document ---
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 Bolus (Heparin Dosing Weight) 2018-05-03 19:1 7:00 No Route: IVP, PRN, 4,300 unit, 4.3 mL, Drug form: INJ, PRN, Heparin Protocol, Start date: 05/03/18 14:17:00 CDT Stop date: 06/02/18 14:16:00 CDT, 30 day [facility] Heparin - one time bolus for ACS 2018-05-03 19:17:00 No 4,000 unit, 4 mL, Route: IVP, Drug form: INJ, ONCE, Dosing Weight 81.818, kg, Priority: STAT, Start date: 05/03/18 14:17:00 CDT, Stop date: 05/03/18 14:17:00 CDT [facility] Nitroglycerin 2018-05-03 17:26:00 No 0.4 mg, Route: SL, ONCE, Dosing Weight 81.818, kg, Priority: STAT, Start date: 05/03/18 12:26:00 CDT, Stop date: 05/03/18 12:26:00 CDT [facility] Aspirin 2018-05-03 15:43:00 No Notes: Take with food. Annabelle Shin tiotropium (SPIRIVA WITH HANDIHALER) 18 mcg inhalation capsu le 2018-01-11 00:00:00 2020-02-12 00:00:00 No History of emphysema 1{capsule } QD Inhale 1 capsule by mouth daily. [facility] Cyclobenzaprine hydrochloride 10 MG Oral Tablet [Flexeril] 2017-03-16 21:28:00 Yes 10 mg, PO, TID, PRN Musc le Spasm, X 5 day, # 20 tab, 0 Refill(s) [facility] [place] tramadol hydrochloride 50 MG Oral Tablet [Ultram] 2017-03-16 21:28:00 Yes 100 mg = 2 tab, PO, Q6H, PRN pain, X 3 day, # 2 4 tab, 0 Refill(s) [facility] [place] Flexeril 2017-03-16 21:08:00 No Notes: (Neil e As: Flexeril) [facility] tramadol hydrochloride 50 MG Oral Tablet [Ultram] 2017-03-16 21:08:00 No Notes: Not to exceed 400mg/day. (Same As: Ultra m) [facility] Motrin 2017-03-16 19:26:00 No Notes: (Same as: Advil) Give with food. [facility] Bydureon 2016-02-25 00:00:00 Yes Amy Ceballos 1 [facility] topiramate 50 MG Oral Tablet [Topamax] 2016-02-15 17:27:00 No 50 mg = 1 tab, PO, TID, # 60 tab, 0 Refill(s) [facility] Plavix 2016-02-15 14:00:00 No Notes: (Same As: Plavix) [facility] [place] Al hydroxide/Mg hydroxide/simethicone 2016-02-15 09:31:00 N o Notes: (aluminum hydroxide-magnesium hyd-simethicone [phone]/5ml 30 ml ud JAHAIRA) [facility] 3 ML liraglutide 6 MG/ML Prefilled Syringe [Victoza] 2 01:06:00 Yes 18 mg = 3 mL, SUB-Q, Daily, # 3 ea, 3 Re fill(s) [facility] Flexeril 2016-02-15 01:06:00 Yes 5 mg, PO, BID, PRN Muscle Spasm, # 30 tab, 0 Refill(s) [facility] citalopram 10 mg oral tablet 2016-02-15 01:06:00 Yes 10 mg = 1 tab, PO, Daily, 0 Refill(s) [facility] Hydrochlorothiazide 12.5 MG / Lisinopril 20 MG Oral Tablet 2016-02-15 01:06:00 Yes 1 tab, PO, Daily, # 30 tab, 0 R efill(s) [facility] metoprolol tartrate 50 mg oral tablet 2016-02-15 01:06:00 Y es 50 mg = 1 tab, PO, Daily, 0 Refill(s) [facility] Clarithromycin 2016-02-15 01:06:00 Yes 500 mg, PO, Daily, 0 Refill(s) [facility] Metformin 2016-02-15 01:06:00 Yes 1, 000 mg, PO, BID, 0 Refill(s) Annabelle Shin glipiZIDE extended release 2016-02-15 01:06:00 Yes 5 mg, PO, Daily, 0 Refill(s) Annabelle Shin LORazepam 0.5 mg oral tablet 2016-02-15 01:06:00 Yes 0.25 mg = 0.5 tab, PO, BID, PRN Anxiety, 0 Refill(s) Jareth Shin Metoclopramide 10 MG Oral Tablet 2016-02-15 01:06:00 No 10 mg = 1 tab, PO, BID, 0 Refill(s) Annabelle kirk Nitroglycerin 0.4 MG Sublingual Tablet 2016-02-14 22:45:00 No Notes: (Same as:Nitroquick, Nitrostat) "Do Not Crush" Sublingual tablet [facility] Norvasc 2016-02-14 22:00:00 No Notes: (Same as: Norvasc) [facility] [place] Morphine 2016-02-14 21:54:00 No Not es: (Same as:MORPhine Sulfate) [facility] Insulin, Aspart, Human 2016-02-14 21:53:00 No Notes: Roll in palms of hands gently; Do not shake vigorously. (Same as: NovoLOG) "single patient use only" WASTE: F/P - Black; E - Municipal Trash Bin Stable for 28 days at room temperature. Expires in days from Date [facility] Dextrose 50% Syringe 2016-02-14 21:53:00 No 25 gm, 50 mL, Route: IVP, Drug Form: INJ, Dosing Weight 74.091, kg, PRN, PRN Blood Glucose Results, Start date: 02/14/16 16:53:00 CDT, Duration: 30 day, Stop date: 03/15/16 16:52:00 CDT [facility] Glucagon 2016-02-14 21:53:00 No 1 mg, Route: IM, Drug form: PDR/INJ, PRN, Dosing Weight 74.091, kg, PRN Blood Glucose Results, Start date: 02/14/16 16:53:00 CDT, Duration: 30 day, Stop date: 03/15/16 16:52:00 CDT [facility] Acetaminophen 325 MG / Hydrocodone Bitartrate 5 MG Oral Tabl et 2016-02-14 21:50:00 No Notes: (Sa me as: Timewell 325/5) Do not exceed 4gm/day of acetaminophen. Annabelle Shin Acetaminophen 2016-02-14 21:50:00 No 100.4 F, Start date: 02/14/16 16:50:00 CDT, Duration: 30 day, Stop date: 03/15/16 16:49:00 CDT Annabelle Shin Morphine 2016-02-14 21:50:00 No 2 mg, Route: IVP, Q4H, Dosing Weight 74.091, kg, PRN Pain Score 7-10, Start date: 02/14/16 16:50:00 CDT, Duration: 30 day, Stop date: 03/15/16 16:49:00 CDT Annabelle Shin Ondansetron 2016-02-14 21:50:00 No 4 mg, Route: IVP, Q6H, Dosing Weight 74.091, kg, PRN Nausea & Vomiting, Start date: 02/14/16 16:50:00 CDT, Duration: 30 day, Stop date: 03/15/16 16:49:00 CDT Annabelle Shin Aspirin 325 MG Oral Tablet 2016-02-14 21:35:00 No Notes: Take with food. Annabelle Shin Morphine 2016-02-14 21:34:00 No Not es: (Same as:MORPhine Sulfate) Annabelle Shin Acetaminophen 2016-02-14 21:34:00 No Notes: Do not exceed 4 gm/day. (Same as: Tylenol) Annabelle Shin Ondansetron 2016-02-14 21:34:00 No Notes: (Same as: Zofran) MEDICATION WASTE Product Size: 4 mg Product Wasted: ___ mg Annabelel Shin Aspirin 2016-02-14 21:25:00 No Notes: Take with food. Annabelle Shin Omnipaque 350 2016-02-14 21:00:00 No Notes: (same as:Omnipaque 350). WASTE: F/P - Black; E - Municipal Trash Bin Annabelle Shin Morphine 2016-02-14 19:42:00 No 2 mg, Route: IVP, Drug form: INJ, ONCE, Dosing Weight 74.091, kg, Priority: STAT, Start date: 02/14/16 14:42:00 CDT, Stop date: 02/14/16 14:42:[address] [facility] Saline Flush 0.9% 2016-02-14 19:09:00 No Notes: Same as: BD Posiflush Sterile [facility] Nitroglycerin 2016-02-14 19:09:00 No Notes: (Same as:Nitroquick, Nitrostat) "Do Not Crush" Sublingual tablet [facility] Victoza 2015-11-30 00:00:00 Yes Amy Bañuelosmed 1.2 units [facility] Omnipaque 300 2015-11-12 18:00:00 No Notes: (Same as:Omnipaque 300). [facility] GI cocktail 2015-11-12 14:28:00 No Notes: G.I. Cocktail = antacid with simethicone 22.5 mL - lidocaine viscous 7.5 mL [facility] Morphine 2015-11-12 13:37:00 No 4 mg, Route: IVP, Drug form: INJ, ONCE, Dosing Weight 97.727, kg, Priority: STAT, Start date: 11/12/15 7:37:00, Stop date: 11/12/15 7:37:00 [facility] Aspirin 325 MG Oral Tablet 2015-11-12 11:59:00 No Notes: Take with food. [facility] pantoprazole 2015-11-12 11:58:00 No Notes: For IV push reconstitute with 10 ml 0.9% sodium chloride and push over 2 minutes. (Same as: Protonix) [facility] Ondansetron 2015-11-12 11:58:00 No Notes: (Same as: Zofran) MEDICATION WASTE Product Size: 4 mg Product Wasted: ___ mg [facility] Morphine 2015-11-12 11:58:00 No Not es: (Same as:MORPhine Sulfate) [facility] Enalapril Maleate 2015-09-05 03:10:10 Yes Amy Ceballos 1 tablet [facility] Metoprolol Succinate ER 2015-09-05 03:10:10 Yes Amy Bañuelosmed 1 tablet [facility] Topamax 2015-09-05 03:10:10 Yes Amy Ceballos 1 ta blet at bedtime [facility] Metoclopramide HCl 2015-09-05 03:10:10 Yes Amy Ahmed Unknown [facility] Fenofibrate 2015-09-05 03:10:10 Yes Amy Ahmed 1 tablet [facility] Gabapentin 2015-09-05 03:10:10 Yes Amy Ahmed U nknown [facility] GlipiZIDE ER 2015-09-05 03:10:10 Yes Amy Ahmed 1 tablet [facility] Clonidine HCl 2015-09-05 03:10:10 Yes Amy Ahmed 1 tablet at bedtime [facility] Metformin HCl 2015-09-05 03:10:10 Yes Amy Ahmed 1 tablet with meals [facility] Sumatriptan-Naproxen Sodium 2015-09-05 03:10:10 Yes Sale fine Ahmed Unknown [facility] Clarithromycin 2015-09-01 00:00:00 Yes Amy Ahmed 1 tablet [facility] Flonase 2015-09-01 00:00:00 Yes Amy Ahmed 1 spray in each nostril [facility] Dilantin 2015-09-01 00:00:00 Yes Amy Ahmed 1 c apsule [facility] Spiriva HandiHaler 2015-09-01 00:00:00 Yes Amy Ahmed 1 capsule [facility] Mucinex 2015-09-01 00:00:00 Yes Amy Ahmed 1 ta blet as needed [facility] Ondansetron 4 MG Disintegrating Tablet [Zofran] 2015-06-23 19:34 :00 Yes Special Instructions: Dissolve tab under tongue [facility] Metoclopramide 5 MG Oral Tablet [Reglan] 2015-06-23 19:32:00 Yes 5 mg = 1 tab, PO, QID, X 10 day, # 40 tab, 0 Refill(s) [facility] Famotidine 20 MG Oral Tablet [Pepcid] 2015-06-23 18:51:00 Y es 20 mg = 1 tab, PO, BID, # 60 tab, 0 Refill(s) [facility] GI cocktail 2015-06-23 17:55:00 No 30 mL, Route: PO, Dosing Weight 93.636, kg, ONCE, STAT, Start date: 06/23/15 12:55:00, Stop date: 06/23/15 12:55:00 [facility] Zofran 2015-06-23 16:44:00 No Notes: (Same as: Zofran) MEDICATION WASTE Product Size: 4 mg Product Wasted: ___ mg Annabelel Shin Sodium Chloride 0.154 MEQ/ML Injectable Solution 2015-06-23 16:4 4:00 No 500 mL, 500 ml/hr, Infuse Ov er: 1 hr, Route: IV, 500, Drug form: INJ, ONCE, Priority: STAT, Dosing Weight 93.636 kg, Start date: 06/23/15 11:44:00, Duration: 1 doses or times, Stop date: 06/23/15 11:44:00 Annabelle Shin Esomeprazole 2015-02-04 14:00:00 No 40 mg, Route: PO, Drug form: ECCAP, Daily, Dosing Weight 95.994, kg, Start date: 02/04/15 9:00:00, Duration: 30 day, Stop date: 03/05/15 9:00:00 Patrick flores Shin Plavix 2015-02-04 14:00:00 No Notes: (Same As: Plavix) Annabelle Shin Aspirin 81 MG Enteric Coated Tablet 2015-02-04 14:00:00 No Notes: Do not crush or chew. (Same As: Ecotrin) Jareth Shin gabapentin 100 MG Oral Capsule 2015-02-03 23:00:00 No Notes: (Same as: Neurontin) Annabelle Shin topiramate 2015-02-03 22:00:00 No Notes: (Same As: Topamax) "Do Not Crush" Annabelle Shin Fenofibrate 145 MG Oral Tablet 2015-02-03 22:00:00 No 1 tab, Route: PO, Drug form: TAB, BID, Dosing Weight 95.994, kg, Start date: 02/03/15 17:00:00, Duration: 30 day, Stop date: 03/05/15 9:00:00 Annabelle Shin enalapril 2015-02-03 22:00:00 No Notes: (Sa me as: Vasotec) Annabelle Shin Clonidine Hydrochloride 0.1 MG Oral Tablet 2015-02-03 22:00:00 No Notes: (Same As: Catapres) Annabelle teixeira Promethazine 2015-02-03 21:12:00 No Notes: Do not give IV push. (Same as: Phenergan) [facility] [place] acetaminophen-codeine #3 2015-02-03 21:12:00 No Notes: Do not exceed 4gm/day of acetaminophen. (Same as: Tylenol with Codeine # 3) [facility] [place] Acetaminophen 2015-02-03 21:12:00 No Notes: Do not exceed 4 gm/day. (Same as: Tylenol) [facility] Morphine 2015-02-03 21:12:00 Yes Not es: (Same as:MORPhine Sulfate) [facility] Fentanyl 2015-02-03 21:12:00 Yes Notes: (Same as: Sublimaze) Preservative free. [facility] Sodium Chloride 0.154 MEQ/ML Injectable Solution 2015-02-03 21:12:00 Yes 250 mL, 250 ml/hr, I nfuse Over: 1 hr, Route: IV, 250, Drug form: INJ, ONCE, Dosing Weight 95.994 kg, Start date: 02/03/15 16:12:00, Duration: 1 doses or times, Stop date: 02/03/15 16:12:00 Patrick Shin Sumatriptan 2015-02-03 21:10:00 No Notes: ( Same as: Imirtex) Annabelle Shin Nitroglycerin 0.4 MG Sublingual Tablet 2015-02-03 21:10:00 No Notes: (Same as:Nitroquick, Nitrostat) "Do Not Crush" Sublingual tablet [facility] Sodium Chloride 0.154 MEQ/ML Injectable Solution 2015-02-03 19:5 0:00 No 750 mL, Rate: 75 ml/hr, Infu se over: 10 hr, Route: IV, Dosing Weight 95.994 kg, Total Volume: 750, Start date: 02/03/15 14:50:00, Duration: 1 doses or times, Stop date: 02/04/15 0:49:00 Nancy Shin Esomeprazole 40 MG Enteric Coated Capsule [Nexium] 2015-01 15:24:00 Yes Daily, 0 Refill(s) Jareth Shin Enoxaparin 2015-02-03 15:00:00 No Notes: (S carlos as: Lovenox) Annabelle Shin Saline Flush 0.9% 2015-02-03 14:00:00 No Notes: Same as: BD Posiflush Sterile [facility] Aspirin 81 MG Enteric Coated Tablet 2015-02-03 14:00:00 No Notes: Do not crush or chew. (Same As: Ecotrin) Jareth Shin topiramate 2015-02-03 14:00:00 No Notes: (Same As: Topamax) "Do Not Crush" [facility] Fenofibrate 2015-02-03 14:00:00 No Notes: ( Same as: Tricor) [facility] enalapril 2015-02-03 14:00:00 No Notes: (Sa me as: Vasotec) [facility] Insulin, Aspart, Human 2015-02-03 06:38:00 No Notes: Roll in palms of hands gently; Do not shake vigorously. (Same as: NovoLOG) "single patient use only" Stable for 28 days at room temperature. Expires in days from Date [facility] Dextrose 50% Syringe 2015-02-03 06:38:00 No 12.5 gm, 25 mL, Route: IVP, Drug Form: INJ, Dosing Weight 95.994, kg, PRN, PRN Blood Glucose Results, Start date: 02/03/15 1:38:00, Duration: 30 day, Stop date: 03/05/15 1:37:00 [facility] Glucagon 2015-02-03 06:38:00 No 1 mg, Route: IM, Drug form: PDR/INJ, PRN, Dosing Weight 95.994, kg, PRN Blood Glucose Results, Start date: 02/03/15 1:38:00, Duration: 30 day, Stop date: 03/05/15 1:37:00 [facility] Saline Flush 0.9% 2015-02-03 06:37:00 No Notes: Same as: BD Posiflush Sterile [facility] Nitroglycerin 2015-02-03 06:37:00 No Notes: (Same as:Nitroquick, Nitrostat) "Do Not Crush" Sublingual tablet [facility] Sodium Chloride 0.154 MEQ/ML Injectable Solution 2015-02-03 06:3 7:00 No 1,000 mL, Rate: 100 ml/hr, I nfuse over: 10 hr, Route: IV, Dosing Weight 95.994 kg, Total Volume: 1,000, Start date: 02/03/15 1:37:00, Duration: 30 day, Stop date: 03/05/15 1:36:00 Annabelle umberto Clonidine Hydrochloride 0.1 MG Oral Tablet 2015-02-03 06:37:00 No Notes: (Same As: Magdalenaaprkristi) Annabelle teixeira Nitroglycerin 0.4 MG Sublingual Tablet 2015-02-03 04:45:00 Yes Special Instructions: If chest pain not relieved within 5 minutes of taking the 1st dose, seek immediate medical attention Annabelle Shin Aspirin 81 MG Enteric Coated Tablet 2015-02-03 04:45:00 Yes 81 mg = 1 tab, PO, Daily, 0 Refill(s) [facility]abelle [facility] Fenofibrate 145 MG Oral Tablet 2015-02-03 04:44:00 Yes BID, 0 Refill(s) Annabelle Shin enalapril 10 mg oral tablet 2015-02-03 04:43:00 Yes 10 mg = 1 tab, PO, BID, 0 Refill(s) Annabelle Shin topiramate 25 mg oral tablet 2015-02-03 04:43:00 Yes 25 mg = 1 tab, PO, BID, 0 Refill(s) Annabelle Shin Clonidine Hydrochloride 0.1 MG Oral Tablet 2015-02-03 04:42:00 Yes 0.1 mg = 1 tab, PO, BID, 0 Refill(s) Neelima Shin gabapentin 100 MG Oral Capsule 2015-02-03 04:42:00 Yes 100 mg = 1 cap, PO, TID, 0 Refill(s) Annabelle kirk SUMAtriptan 100 mg oral tablet 2015-02-03 04:41:00 Yes 100 mg = 1 tab, PO, PRN, 0 Refill(s) Annabelle kirk Metformin hydrochloride 1000 MG Oral Tablet 2015-02-03 04:40:00 No 1,000 mg = 1 tab, PO, BID, 0 Refill(s) Jareth Shin clopidogrel 75 MG Oral Tablet [Plavix] 2015-02-03 04:40:00 Yes 75 mg = 1 tab, PO, Daily, 0 Refill(s) Patrick Shin Saline Flush 0.9% 2015-02-03 01:41:00 No Notes: Same as: BD Posiflush Sterile Annabelle Shin metoprolol 50 mg oral tablet, extended release 2014-11-21 06:56: 00 Yes 50 mg, PO, BID, # 60 tab, 0 Refill(s) Annabelle Shin enalapril 10 mg oral tablet 2014-11-21 06:54:00 Yes 10 mg = 1 tab, PO, BID, # 60 tab, 0 Refill(s) Annabelle Shin Cyclobenzaprine hydrochloride 10 MG Oral Tablet [Flexeril] 2014-11-21 06:53:00 Yes 10 mg = 1 tab, PO, BID, for spa sm, # 20 tab, 0 Refill(s) Annabelle Shin Reglan 2014-11-21 04:58:00 No Notes: (Same as: Reglan) Annabelle Shin Saline Flush 0.9% 2014-11-21 04:58:00 No Notes: (Same as: BD Posiflush) Annabelle Shin Benadryl 2014-11-21 04:58:00 No Notes: (Neil e as: Benadryl) Annabelle Shin Acetaminophen 2014-11-21 04:58:00 No Notes: Do not exceed 4 gm/day. (Same as: Tylenol) Annabelle Shin Enalapril 2014-11-21 04:57:00 No Notes: (Sa me as: Vasotec) Annabelle Shin metoprolol extended release 2014-11-21 04:56:00 No Notes: (Same as: Toprol XL) May split tab, but do not crush. [facility] Immunizations Ordered Immunization Name Filled Immunization Name Date Status Comments Source Pneumococcal <Unspecified> 2018-10-30 00:00:00 Completed [facility] Td <Unspecified> 2018-10-30 00:00:00 Completed [facility] Vital Signs Vital Name Observation Time Observation Value Comments Source Systolic (mm Hg) 2018-05-05 21:00:00 [facility] Diastolic (mm Hg) 2018-05-05 21:00:00 [facility] [place] Systolic (mm Hg) 2018-05-05 19:00:00 Patrick [facility] [place] Diastolic (mm Hg) 2018-05-05 19:00:00 [facility] [place] Systolic (mm Hg) 2018-05-05 17:00:00 [facility] Diastolic (mm Hg) 2018-05-05 17:00:00 [facility] [place] Respitory Rate 2018-05-05 13:00:00 [facility] [place] Temperature Oral (F) 2018-05-05 12:43:00 98.7 F [facility] Respitory Rate 2018-05-05 12:00:00 [facility] [place] Temperature Oral (F) 2018-05-05 08:00:00 97.6 F [facility] Temperature Oral (F) 2018-05-05 04:27:00 97.2 F [facility] [place] Respitory Rate 2018-05-04 23:15:00 [facility] BMI Calculated 2018-05-04 02:16:00 [facility] Height 2018-05-04 02:16:00 167.64 cm [facility] [place] Weight 2018-05-04 02:16:00 [facility] Weight 2018-05-03 15:21:00 [facility] Height 2018-05-03 15:21:00 167.64 cm [facility] BMI Calculated 2018-05-03 15:21:00 [facility] Heart Rate 2018-05-03 15:21:00 [facility] Heart Rate 2017-03-17 00:31:00 [facility] Temperature Oral (F) 2017-03-17 00:31:00 98.0 F [facility] Systolic (mm Hg) 2017-03-17 00:31:00 [facility] [place] Diastolic (mm Hg) 2017-03-17 00:31:00 [facility] Respitory Rate 2017-03-17 00:31:00 [facility] [place] BMI Calculated 2017-03-16 19:20:00 [facility] [place] Weight 2017-03-16 19:20:00 [facility] [place] Height 2017-03-16 19:20:00 167.64 cm [facility] [place] Temperature Oral (F) 2017-03-16 19:20:00 97.9 F [facility] [place] Systolic (mm Hg) 2017-03-16 19:20:00 Patrick [facility] Diastolic (mm Hg) 2017-03-16 19:20:00 [facility] [place] Heart Rate 2017-03-16 19:20:00 [facility] Respitory Rate 2017-03-16 19:20:00 [facility] Systolic (mm Hg) 2016-02-15 18:51:00 [facility] Diastolic (mm Hg) 2016-02-15 18:51:00 [facility] Temperature Oral (F) 2016-02-15 12:55:00 97.4 F [facility] [place] Respitory Rate 2016-02-15 12:55:00 [facility] Systolic (mm Hg) 2016-02-15 12:55:00 Patrick [facility] Diastolic (mm Hg) 2016-02-15 12:55:00 [facility] [place] Heart Rate 2016-02-15 12:55:00 [facility] Temperature Oral (F) 2016-02-15 09:06:00 97.8 F [facility] [place] Heart Rate 2016-02-15 09:06:00 [facility] [place] Respitory Rate 2016-02-15 09:06:00 [facility] [place] Systolic (mm Hg) 2016-02-15 09:06:00 Patrick [facility] Diastolic (mm Hg) 2016-02-15 09:06:00 [facility] Heart Rate 2016-02-15 06:36:00 [facility] Respitory Rate 2016-02-15 04:15:00 [facility] Temperature Oral (F) 2016-02-15 04:15:00 98.2 F [facility] Weight 2016-02-15 01:41:00 [facility] BMI Calculated 2016-02-15 01:41:00 [facility] Height 2016-02-15 01:41:00 167.64 cm [facility] BMI Calculated 2016-02-14 19:04:00 [facility] Height 2016-02-14 19:04:00 167.64 cm [facility] Weight 2016-02-14 19:04:00 [facility] Temperature Oral (F) 2015-11-12 18:55:00 97.5 [facility] Systolic (mm Hg) 2015-11-12 18:55:00 [facility] Diastolic (mm Hg) 2015-11-12 18:55:00 [facility] Respitory Rate 2015-11-12 18:55:00 [facility] Systolic (mm Hg) 2015-11-12 17:44:00 Patrick [facility] [place] Diastolic (mm Hg) 2015-11-12 17:44:00 [facility] [place] Temperature Oral (F) 2015-11-12 17:44:00 98.3 F [facility] Respitory Rate 2015-11-12 17:44:00 [facility] Temperature Oral (F) 2015-11-12 14:56:00 98.4 F [facility] Systolic (mm Hg) 2015-11-12 14:56:00 [facility] Diastolic (mm Hg) 2015-11-12 14:56:00 [facility] Respitory Rate 2015-11-12 14:56:00 [facility] Heart Rate 2015-11-12 11:55:00 [facility] BMI Calculated 2015-11-12 11:34:00 [facility] [place] Height 2015-11-12 11:34:00 167.64 cm [facility] Weight 2015-11-12 11:34:00 [facility] Heart Rate 2015-11-12 11:34:00 [facility] Weight 2015-09-01 20:15:00 [facility] Height 2015-09-01 20:15:00 [facility] [place] Diastolic (mm Hg) 2015-09-01 20:15:00 [facility] [place] Systolic (mm Hg) 2015-09-01 20:15:00 [facility] Systolic (mm Hg) 2015-06-23 19:49:00 Patrick [facility] [place] Diastolic (mm Hg) 2015-06-23 19:49:00 [facility] [place] Respitory Rate 2015-06-23 19:49:00 [facility] Temperature Oral (F) 2015-06-23 19:49:00 97.8 F [facility] Heart Rate 2015-06-23 19:49:00 [facility] Systolic (mm Hg) 2015-06-23 15:50:00 Patrick [facility] [place] Diastolic (mm Hg) 2015-06-23 15:50:00 [facility] [place] Heart Rate 2015-06-23 15:50:00 [facility] Respitory Rate 2015-06-23 15:50:00 [facility] Temperature Oral (F) 2015-06-23 15:50:00 97.9 F [facility] BMI Calculated 2015-06-23 15:50:00 [facility] Weight 2015-06-23 15:50:00 [facility] Height 2015-06-23 15:50:00 167.64 cm [facility] Systolic (mm Hg) 2015-02-03 15:09:00 [facility] Diastolic (mm Hg) 2015-02-03 15:09:00 [facility] [place] Heart Rate 2015-02-03 15:09:00 [facility] Respitory Rate 2015-02-03 15:09:00 [facility] Temperature Oral (F) 2015-02-03 15:09:00 98.1 F [facility] Temperature Oral (F) 2015-02-03 15:08:00 98.1 F [facility] Height 2015-02-03 15:08:00 167.64 cm [facility] Systolic (mm Hg) 2015-02-03 14:00:00 [facility] Diastolic (mm Hg) 2015-02-03 14:00:00 [facility] [place] Respitory Rate 2015-02-03 14:00:00 [facility] [place] Temperature Oral (F) 2015-02-03 14:00:00 97.6 F [facility] Heart Rate 2015-02-03 14:00:00 [facility] Heart Rate 2015-02-03 11:22:00 [facility] Respitory Rate 2015-02-03 11:22:00 [facility] [place] Systolic (mm Hg) 2015-02-03 11:22:00 [facility] Diastolic (mm Hg) 2015-02-03 11:22:00 [facility] Weight 2015-02-03 01:34:00 [facility] BMI Calculated 2015-02-03 01:34:00 [facility] [place] Height 2015-02-03 01:34:00 167.64 cm [facility] Heart Rate 2014-11-21 07:21:00 [facility] Respitory Rate 2014-11-21 07:21:00 [facility] Systolic (mm Hg) 2014-11-21 07:21:00 Patrick [facility] [place] Diastolic (mm Hg) 2014-11-21 07:21:00 [facility] Diastolic (mm Hg) 2014-11-21 06:05:00 [facility] Systolic (mm Hg) 2014-11-21 06:05:00 [facility] Respitory Rate 2014-11-21 06:05:00 [facility] [place] Heart Rate 2014-11-21 06:05:00 [facility] Systolic (mm Hg) 2014-11-21 04:50:00 Patrick t[facility] Diastolic (mm Hg) 2014-11-21 04:50:00 Mem orikristin [place] Respitory Rate 2014-11-21 04:50:00 Ashish [facility] Heart Rate 2014-11-21 04:50:00 [facility] Temperature Oral (F) 2014-11-21 04:01:00 98.2 F [facility] Weight 2014-11-21 04:01:00 [facility] BMI Calculated 2014-11-21 04:01:00 Ashish foster [place] Height 2014-11-21 04:01:00 167.64 cm [facility] Procedures Procedure Date / Time Performed Performing Clinician [facility] e Angiogram [facility] Stent placement<sup>1</sup> Patrick tanner [place] Plan of Care Planned Activity Planned Date Details Comments Source Future Scheduled Test 2020-07-30 00:00:00 IMM Influenza Seas onal Jul to December (>/= 19 yrs) [code = IMM Influenza Seasonal Jul to December (>/= 19 yrs)] [facility] Scheduled Test 2020-03-20 00:00:00 DM Foot Exam (Year ly) [code = DM Foot Exam (Yearly)] [facility] Scheduled Test 2020-03-19 00:00:00 CORONARY ARTERY DI SEASE AGE 18 AND UP [code = CORONARY ARTERY DISEASE AGE 18 AND UP] [facility] Scheduled Test 2020-03-19 00:00:00 Hemoglobin A1c miguel surement (procedure) [code = 74195546] [facility] Scheduled Test 2020-03-19 00:00:00 DM Retinal Exam (Y early) [code = DM Retinal Exam (Yearly)] [facility] Scheduled Test 2019-07-12 00:00:00 Screening for lowell gnant neoplasm of colon (procedure) [code = 919393976] [facility] Encounters Start Date/Time End Date/Time Encounter Type Admission Type Attendi [facility] Facility Care Department Encounter ID Source 2019-06-14 00:00:00 2019-06-14 00:00:00 Outpatient [facility] [id number] [facility] 2019-06-13 00:00:00 2019-06-13 00:00:00 Outpatient [facility] [id number] [facility] 2019-05-24 00:00:00 2019-05-24 00:00:00 Outpatient [facility] [id number] [facility] 2019-05-21 00:00:00 2019-05-21 00:00:00 Outpatient [facility] [id number] [facility] 2019-05-17 00:00:00 2019-05-17 00:00:00 Outpatient [facility] [id number] [facility] 2019-05-17 00:00:00 2019-05-17 00:00:00 Outpatient [facility] [id number] [facility] 2019-05-16 00:00:00 2019-05-16 00:00:00 Outpatient [facility] [id number] [facility] 2019-04-26 00:00:00 2019-04-26 00:00:00 Outpatient [facility] [id number] [facility] 2019-04-18 08:38:36 2019-04-18 08:38:36 Outpatient [facility] [id number] [facility] 2019-04-05 14:22:52 2019-04-05 14:22:52 Outpatient [facility] [id number] [facility] 2019-04-02 00:00:00 2019-04-02 00:00:00 Outpatient [facility] [id number] [facility] 2019-03-20 15:25:36 2019-03-20 15:25:36 Outpatient [facility] [id number] [facility] 2019-03-20 13:59:36 2019-03-20 13:59:36 Outpatient [facility] [id number] [facility] 2019-03-20 13:38:31 2019-03-20 13:38:31 Outpatient [facility] [id number] [facility] 2019-03-20 00:00:00 2019-03-20 00:00:00 Outpatient [facility] [id number] [facility] 2019-03-19 09:25:24 2019-03-19 09:25:24 Outpatient [facility] [id number] [facility] 2019-03-19 09:24:15 2019-03-19 09:24:15 Outpatient [facility] [id number] [facility] 2019-03-01 00:00:00 2019-03-01 00:00:00 Outpatient [facility] [id number] [facility] 2019-03-01 00:00:00 2019-03-01 00:00:00 Outpatient [facility] [id number] [facility] 2019-02-28 15:03:09 2019-02-28 15:03:09 Outpatient [facility] [id number] [facility] 2019-02-26 11:27:45 2019-02-26 11:27:45 Outpatient [facility] [id number] [facility] 2018-07-30 00:00:00 2018-07-30 00:00:00 Outpatient [facility] [id number] [facility] 2018-07-13 15:50:17 2018-07-13 15:50:17 Outpatient [facility] [id number] [facility] 2018-07-12 10:00:37 2018-07-12 10:00:37 Outpatient [facility] [id number] [facility] 2018-07-11 17:37:36 2018-07-11 17:37:36 Outpatient [facility] [id number] [facility] 2018-07-09 23:45:28 2018-07-09 23:45:28 Emergency [facility] [id number] [facility] 2018-07-09 22:15:22 2018-07-09 22:15:22 Emergency [facility] [id number] [facility] 2018-07-09 21:53:39 2018-07-09 21:53:39 Emergency [facility] [id number] [facility] 2018-07-09 21:43:52 2018-07-09 21:43:52 Outpatient [facility] [id number] [facility] 2018-07-09 00:00:00 2018-07-09 00:00:00 Emergency [facility] [id number] [facility] 2018-07-09 00:00:00 2018-07-09 00:00:00 Emergency [facility] [id number] [facility] 2018-05-03 10:20:00 2018-05-05 17:20:00 Outpatient Tanisha Anderson [facility] [id number] 2017-03-16 14:03:00 2017-03-16 19:36:00 Outpatient F Kaitlin weaver [facility] [id number] 2016-02-25 11:56:00 2016-02-25 11:56:00 Outpatient [facility] [id number] eClinicalWorks 2016-02-14 13:59:00 2016-02-16 15:32:00 Outpatient [facility] [id number] 2015-11-12 05:27:00 2015-11-12 12:59:00 Outpatient Vargas Dubon [facility] [id number] 2015-09-01 14:15:00 2015-09-01 14:15:[address] [facility] [id number] eClinicalWorks 2015-06-23 10:45:00 2015-06-23 14:53:00 Outpatient Bud Aguila [facility] [id number] 2015-03-17 10:23:00 2015-03-17 10:23:00 Outpatient [facility] [id number] eClinicalWork s 2015-02-02 20:21:00 2015-02-03 18:02:00 Outpatient Sheikh Eloy Ceballos [facility] [id number] 2014-11-20 21:40:00 2014-11-21 01:25:[address] [facility] [id number] Results Test Description Test Time Test Comments Results Result Comments Source CXR 1 VEW - HOPD 2020-06-27 13:19:00 [place] [address] Patient Name: CORNELIO PEÑA MR #: [id number] : 1965 Age/Sex: 55/M Req #: [id number] [facility] Physician: Ordered by: NEGRO PATEL MD Report #: [id number] Location: [facility] Room/Bed: Procedure: [id number] HOPD/CXR 1 VEW - HOPD Exam Date: 06/27/20 Exam Time: 1256 REPORT STATUS: Signed EXAMINATION: CXR 1 VEW - HOPD INDICATION: Chest pain. COMPARISON: None FINDINGS: TUBES and LINES: None. LUNGS: Normal lung volumes. Lungs are clear. No consolidations. PLEURA: No pleural effusion or pneumothorax. HEART AND MEDIASTINUM: The cardiomediastinal silhouette is unremarkable. BONES AND SOFT TISSUES: No acute osseous lesion. Soft tissues are unremarkable. UPPER ABDOMEN: No free air under the diaphragm. IMPRESSION: No acute thoracic radiographic abnormality. Signed by: Griselda Bernabe MD on 06/27/2020 1:19 PM Dictated By: GRISELDA BERNABE MD Fatou ctronically Signed By: GRISELDA BERNABE MD on 06/27/20 131 Transcribed By: MILAD on 06/27/201318 COPY TO: NEGRO PATEL MD Coronavirus 2018 nCoV Bedside 2020-04-23 20:54:00 Test Item Coronavirus 2018 nCoV Bedside (test code = COVNONPUIBED) Negative Is patient requiring admission or transfer? YIndication for rapid COVID-19 testi ng: Emergent Procedure URINALYSIS [id number] 20:44:00* Test Item Value Reference Range Interpretation Comments UA COLOR (test code = COLU) YELLOW YELLOW UA APPEARANCE (test code = APPU) CLEAR CLEAR UA GLUCOSE DIPSTICK (test code = DGLUU) 1000 (3+) mg/dL NEGATIVE A UA BILIRUBIN DIPSTICK (test code = BILU) NEGATIVE mg/dL NEGATIVE UA KETONE DIPSTICK (test code = KETU) neg mg/dL NEGATIVE UA SPECIFIC GRAVITY (test code = SGU) 1.015 1.001-1.035 UA BLOOD DIPSTICK (test code = SONU) neg Joey/uL NEGATIVE UA PH DIPSTICK (test code = KENNEDY) 5.0 5.0-8.0 UA PROTEIN DIPSTICK (test code = PROU) neg mg/dL Neg-15 UA UROBILINIOGEN DIPSTICK (test code = URO) norm mg/dL 0.0-0.2 UA NITRITE DIPSTICK (test code = WISAM) NEGATIVE NEGATIVE UA LEUKOCYTE ESTERASE DIPSTICK (test code = LEUU) neg uL NEGA TIVE UA WBC (test code = WBCU) NONE SEEN per HPF 0-5 UA RBC (test code = RBCU) 0-3 per HPF 0-5 UA EPITHELIAL CELLS (test code = EPIU) Few (2-5/hpf) per HPF Few UA BACTERIA (test code = BACU) FEW per HPF NONE Urine Source? Clean CatchDRUGS OF ABUSE SCREEN [id number] 20:44:00* Test Item Value Reference Range Interpretation Comments URN COCAINE (test code = COCAURN) POSITIVE NEGATIVE A URN CANNABINOIDS (test code = CANNABURN) NEGATIVE NEGATIVE URN AMPHETAMINE (test code = AMPHETURN) NEGATIVE NEGATIVE URN BARBITURATE (test code = BARBITURN) NEGATIVE NEGATIVE URN BENZODIAZEPINE (test code = BENZOURN) NEGATIVE NEGATIVE URN OPIATES (test code = OPIATURN) NEGATIVE NEGATIVE URN PHENCYCLIDINE (PCP) (test code = PHENCURN) NEGATIVE NEGATIV E Urine Source? Clean CatchURINALYSIS [id number] 20:42:00* Test Item Value Reference Range Interpretation Comments UA COLOR (test code = COLU) YELLOW YELLOW UA APPEARANCE (test code = APPU) CLEAR CLEAR UA GLUCOSE DIPSTICK (test code = DGLUU) 1000 (3+) mg/dL NEGATIVE A UA BILIRUBIN DIPSTICK (test code = BILU) NEGATIVE mg/dL NEGATIVE UA KETONE DIPSTICK (test code = KETU) neg mg/dL NEGATIVE UA SPECIFIC GRAVITY (test code = SGU) 1.015 1.001-1.035 UA BLOOD DIPSTICK (test code = SONU) neg Joey/uL NEGATIVE UA PH DIPSTICK (test code = KENNEDY) 5.0 5.0-8.0 UA PROTEIN DIPSTICK (test code = PROU) neg mg/dL Neg-15 UA UROBILINIOGEN DIPSTICK (test code = URO) norm mg/dL 0.0-0.2 UA NITRITE DIPSTICK (test code = WISAM) NEGATIVE NEGATIVE UA LEUKOCYTE ESTERASE DIPSTICK (test code = LEUU) neg uL NEGA TIVE UA WBC (test code = WBCU) NONE SEEN per HPF 0-5 UA RBC (test code = RBCU) 0-3 per HPF 0-5 UA EPITHELIAL CELLS (test code = EPIU) Few (2-5/hpf) per HPF Few UA BACTERIA (test code = BACU) FEW per HPF NONE Urine Source? Clean CatchDRUGS OF ABUSE SCREEN [id number] 20:42:00* Test Item Value Reference Range Interpretation Comments URN COCAINE (test code = COCAURN) NEGATIVE URN CANNABINOIDS (test code = CANNABURN) NEGATIVE URN AMPHETAMINE (test code = AMPHETURN) NEGATIVE URN BARBITURATE (test code = BARBITURN) NEGATIVE URN BENZODIAZEPINE (test code = BENZOURN) NEGATIVE URN OPIATES (test code = OPIATURN) NEGATIVE URN PHENCYCLIDINE (PCP) (test code = PHENCURN) NEGATIV E Urine Source? Clean CatchURINALYSIS [id number] 20:37:00* Test Item Value Reference Range Interpretation Comments UA COLOR (test code = COLU) YELLOW YELLOW UA APPEARANCE (test code = APPU) CLEAR CLEAR UA GLUCOSE DIPSTICK (test code = DGLUU) 1000 (3+) mg/dL NEGATIVE A UA BILIRUBIN DIPSTICK (test code = BILU) NEGATIVE mg/dL NEGATIVE UA KETONE DIPSTICK (test code = KETU) neg mg/dL NEGATIVE UA SPECIFIC GRAVITY (test code = SGU) 1.015 1.001-1.035 UA BLOOD DIPSTICK (test code = SONU) neg Joey/uL NEGATIVE UA PH DIPSTICK (test code = KENNEDY) 5.0 5.0-8.0 UA PROTEIN DIPSTICK (test code = PROU) neg mg/dL Neg-15 UA UROBILINIOGEN DIPSTICK (test code = URO) norm mg/dL 0.0-0.2 UA NITRITE DIPSTICK (test code = WISAM) NEGATIVE NEGATIVE UA LEUKOCYTE ESTERASE DIPSTICK (test code = LEUU) neg uL NEGA TIVE UA WBC (test code = WBCU) per HPF 0-5 UA RBC (test code = RBCU) per HPF 0-5 UA EPITHELIAL CELLS (test code = EPIU) per HPF Few UA BACTERIA (test code = BACU) per HPF NONE Urine Source? Clean CatchDRUGS OF ABUSE SCREEN [id number] 20:37:00* Test Item Value Reference Range Interpretation Comments URN COCAINE (test code = COCAURN) NEGATIVE URN CANNABINOIDS (test code = CANNABURN) NEGATIVE URN AMPHETAMINE (test code = AMPHETURN) NEGATIVE URN BARBITURATE (test code = BARBITURN) NEGATIVE URN BENZODIAZEPINE (test code = BENZOURN) NEGATIVE URN OPIATES (test code = OPIATURN) NEGATIVE URN PHENCYCLIDINE (PCP) (test code = PHENCURN) NEGATIV E Urine Source? Clean Catch- XR CHEST 1 [id number] 19:57:00 Name: CORNELIO PEÑA [facility] : 1965 Age/S:55 /M [address] [facility] Unit#:[id number] Loc: [place] [address] Phys: Sruthi Thomson MD Dis Date: PHONE #: [phone] Status: REG ER FAX #: [phone] Exam Date: 04/23/2020 Reason: chest pain EXAMS: CPT CODE: [id number] XR CHEST 1 V 53522 EXAM: Chest X-ray, 1 view; CLINICAL HISTORY: Chest pain; FINDINGS: The lungs are clear, no infiltrates, no edema; no effusions; no pneumothorax; Elevation of the right hemidiaphragm; normal cardiomediastinal silhouette. IMPRESSION: No evidence of active cardiopulmonary disease. Location code: [facility] at 1954 Reported and signed by: Say Galindo M.D. CC: Lin Ceballos MD; Sruthi Thomson MD Technologist: Karon Martinez Trnscrpt Data: 04/23/2020 (1954) [email or web address] Orig Print D/T: S: (1999) PAGE 1 Signed Rep ort [id number] 19:51:00* Test Item Value Reference Range Interpretation Comments TROPONIN-I (test code = TROPI) <0.015 ng/mL 0.00-0.056 N B-TYPE NATRIURETIC [id number] 19:39:00* Test Item Value Reference Range Interpretation Comments B-TYPE NATRIURETIC PEPTIDE (test code = BNP) 32.1 pg/mL 0-100 N PROTHROMBIN [id number] 19:36:00* Test Item Value Reference Range Interpretation Comments PROTHROMBIN TIME PATIENT (test code = PTP) 10.1 seconds 9.0-13.0 N INTERNATIONAL NORMAL RATIO (test code = INR) 1.0 0.8-1.2 N The therapeutic range for oral anticoagulant therapy formost indications is an international normalized ratio (INR)of between 2.0 and 3.0. The recommended therapeutic INRrange for various clinical situations is listed below: Clinical Situation INR range Pulmonary e mbolism treatment (2.0-3.0)Venous thrombosis treatmentVenous thrombosis prophylaxis (high risk surgery)Prevention of systemic embolism from: Acute myocardial infarction Valvular heart disease Atrial fibrillation Mechanical prosthetic heart valves (2.5-3.5) IS PATIENT ON ANTICOAGULANTS? NCOMPREHENSIVE METABOLIC [id number] 19:35:00 * Test Item Value Reference Range Interpretation Comments SODIUM (test code = NA) 134 mmol/L 136-145 L POTASSIUM (test code = K) 3.8 mmol/L 3.5-5.1 N CHLORIDE (test code = CL) 99 mmol/L 101-109 L CARBON DIOXIDE (test code = CO2) 28.7 mmol/L 21-32 N ANION GAP (test code = GAP) 10 mmol/L 10-20 N GLUCOSE (test code = GLU) 294 mg/dL 74-106 H BLOOD UREA NITROGEN (test code = BUN) 7 mg/dL 3-21 N CREATININE (test code = CREAT) 1.03 mg/dL 0.55-1.3 N BUN/CREATININE RATIO (test code = BUN/CREA) 6.8 10-20 L TOTAL PROTEIN (test code = PROT) 6.8 g/dL 6.5-8.4 N ALBUMIN (test code = ALB) 3.4 g/dL 3.4-4.8 N GLOBULIN (test code = GLOB) 3.4 G/DL 1-10 N ALBUMIN/GLOBULIN RATIO (test code = A/G) 1.00 RATIO 0.75-1.50 N CALCIUM (test code = CA) 7.6 mg/dL 8.4-10.2 L BILIRUBIN TOTAL (test code = BILT) 0.30 mg/dL 0.0-1.0 N SGOT/AST (test code = AST) 10 U/L 6-32 N SGPT/ALT (test code = ALT) 22 U/L 12-78 N N ote: Change in REFERENCE RANGE due to new reagent method. ALKALINE PHOSPHATASE TOTAL (test code = ALKP) 114 U/L 38-126 N [id number] 19:35:00* Test Item Value Reference Range Interpretation Comments LIPASE (test code = LIP) 157 U/L 128-270 N COMPREHENSIVE METABOLIC [id number] 19:32:00* Test Item Value Reference Range Interpretation Comments SODIUM (test code = NA) 134 mmol/L 136-145 L POTASSIUM (test code = K) 3.8 mmol/L 3.5-5.1 N CHLORIDE (test code = CL) 99 mmol/L 101-109 L CARBON DIOXIDE (test code = CO2) 28.7 mmol/L 21-32 N ANION GAP (test code = GAP) 10 mmol/L 10-20 N GLUCOSE (test code = GLU) 294 mg/dL 74-106 H BLOOD UREA NITROGEN (test code = BUN) 7 mg/dL 3-21 N CREATININE (test code = CREAT) 1.03 mg/dL 0.55-1.3 N BUN/CREATININE RATIO (test code = BUN/CREA) 6.8 10-20 L TOTAL PROTEIN (test code = PROT) gram/dL 6.4-8.2 ALBUMIN (test code = ALB) g/dL 3.4-5.0 GLOBULIN (test code = GLOB) g/dL 2.7-4.2 ALBUMIN/GLOBULIN RATIO (test code = A/G) 0.75-1.50 CALCIUM (test code = CA) 7.6 mg/dL 8.4-10.2 L BILIRUBIN TOTAL (test code = BILT) mg/dL 0.2-1.2 SGOT/AST (test code = AST) IUnit/L 15-37 SGPT/ALT (test code = ALT) U/L 10-69 ALKALINE PHOSPHATASE TOTAL (test code = ALKP) IUnit/L 45-117 [id number] 19:32:00* Test Item Value Reference Range Interpretation Comments LIPASE (test code = LIP) Unit/L 144-286 CBC W/AUTO [id number] 19:21:00* Test Item Value Reference Range Interpretation Comments WHITE BLOOD CELL (test code = WBC) 7.2 K/mm3 4.5-12.5 N RED BLOOD CELL (test code = RBC) 4.60 mill/mm3 4.0-5.8 N HEMOGLOBIN (test code = HGB) 13.2 gram/dL 13.0-17.5 N HEMATOCRIT (test code = HCT) 38.8 % 42.0-52.0 L MEAN CELL VOLUME (test code = MCV) 84.3 fL 80-98 N MEAN CELL HGB (test code = MCH) 28.7 picogram 27.0-33.0 N MEAN CELL HGB CONCETRATION (test code = MCHC) 34.0 gram/dL 33.0-36. 0 N RED CELL DISTRIBUTION WIDTH (test code = RDW) 13.5 % 11.6-16. 2 N RED CELL DISTRIBUTION WIDTH SD (test code = RDW-SD) 41.6 fL 37 .0-51.0 N PLATELET COUNT (test code = PLT) 259 K/mm3 150-450 N MEAN PLATELET VOLUME (test code = MPV) 10.6 fL 6.7-11.0 N NEUTROPHIL % (test code = NT%) 67.6 % 39.0-69.0 N LYMPHOCYTE % (test code = LY%) 23.1 % 25.0-55.0 L MONOCYTE % (test code = MO%) 7.2 % 0.0-10.0 N EOSINOPHIL % (test code = EO%) 1.3 % 0.0-5.0 N BASOPHIL % (test code = BA%) 0.4 % 0.0-1.0 N NEUTROPHIL # (test code = NT#) 4.86 K/mm3 1.8-7.7 N LYMPHOCYTE # (test code = LY#) 1.66 K/mm3 1.0-5.0 N MONOCYTE # (test code = MO#) 0.52 K/mm3 0-0.8 N EOSINOPHIL # (test code = EO#) 0.09 K/mm3 0.0-0.5 N BASOPHIL # (test code = BA#) 0.03 K/mm3 0.0-0.2 N MANUAL DIFF REQUIRED (test code = MDIFF) NO - CTA [id number] 09:30:00 Name: CORNELIO PEÑA [facility] : 1965 Age/S: 53 / M [address] Unit #: [id number] Loc: [place] [address] Phys: Renée Kay MD Acct: [id number] Dis Date: Status: ADM IN PHONE #: [phone] Exam Date: 02/22/2019 0859 FAX #: [phone] Reason: CHEST PAIN EXAMS: CPT CODE: [id number] CTA CHEST 86546 HISTORY: Chest pain. COMPARISON: None available. CTA CHEST: 3-D images. 100 mL of Isovue-370. Automated exposure control No pulmonary embolism. Unremarkable aorta and SVC. Suboptimally opacified neck vasculature. Thyroid glands are unremarkable. Esophageal wall is not thickened. No pathologic adenopathy. Cardiac silhouette is mildly enlarged. No pericardial effusion is noted. Visualized upper abdomen is unremarkable. No lytic or blastic lesions noted within the bony skeleton. The lungs are clear of infiltrates, effusion or congestion. Dependent changes. No bronchiectasis, honeycombing or fibrosis or endobronchial lesions are noted. IMPRESSION: No pulmonary embolism. Unremarkable aorta. The lungs are clear. at 0930 Reported and signed by: José Miguel Garcia M.D. CC: Lin Ceballos MD; Renée Cuevas MD Technologist:Sandra Watts,RT(R),CT CTDI: DLP: Trnscb Date/Time: 02/22/2019 (929) [email or web address] Orig Print D/T: S: 02/22/2019 (33) CTDI: DLP: PAGE 1 Signed Report GLUBED 2019-02-22 07:50:00* Test Item Value Reference Range Interpretation Comments GLUBED (test code = GLUBED) 212 mg/dL 74-106 H Performed by certified repeater operator at [facility] CBC W/AUTO [id number] 07:14:00* Test Item Value Reference Range Interpretation Comments WHITE BLOOD CELL (test code = WBC) 6.6 K/mm3 4.5-12.5 N RED BLOOD CELL (test code = RBC) 4.66 mill/mm3 4.0-5.8 N HEMOGLOBIN (test code = HGB) 13.9 gram/dL 13.0-17.5 N HEMATOCRIT (test code = HCT) 41.2 % 42.0-52.0 L MEAN CELL VOLUME (test code = MCV) 88.4 fL 80-98 N MEAN CELL HGB (test code = MCH) 29.8 picogram 27.0-33.0 N MEAN CELL HGB CONCETRATION (test code = MCHC) 33.7 gram/dL 33.0-36. 0 N RED CELL DISTRIBUTION WIDTH (test code = RDW) 12.9 % 11.6-16. 2 N RED CELL DISTRIBUTION WIDTH SD (test code = RDW-SD) 41.8 fL 37 .0-51.0 N PLATELET COUNT (test code = PLT) 211 K/mm3 150-450 N MEAN PLATELET VOLUME (test code = MPV) 11.2 fL 6.7-11.0 H NEUTROPHIL % (test code = NT%) 61.5 % 39.0-69.0 N IMMATURE GRANULOCYTE % (test code = IG%) 0.8 % 0.0-5.0 N LYMPHOCYTE % (test code = LY%) 29.2 % 25.0-55.0 N MONOCYTE % (test code = MO%) 6.4 % 0.0-10.0 N EOSINOPHIL % (test code = EO%) 1.5 % 0.0-5.0 N BASOPHIL % (test code = BA%) 0.6 % 0.0-1.0 N NUCLEATED RBC % (test code = NRBC%) 0.0 % 0-0 N NEUTROPHIL # (test code = NT#) 4.04 K/mm3 1.8-7.7 N IMMATURE GRANULOCYTE # (test code = IG#) 0.05 x10 3/uL 0-0.03 H LYMPHOCYTE # (test code = LY#) 1.92 K/mm3 1.0-5.0 N MONOCYTE # (test code = MO#) 0.42 K/mm3 0-0.8 N EOSINOPHIL # (test code = EO#) 0.10 K/mm3 0.0-0.5 N BASOPHIL # (test code = BA#) 0.04 K/mm3 0.0-0.2 N NUCLEATED RBC # (test code = NRBC#) 0.00 K/mm3 0.0-0.1 N MANUAL DIFF REQUIRED (test code = MDIFF) NO BASIC METABOLIC [id number] 07:09:00* Test Item Value Reference Range Interpretation Comments SODIUM (test code = NA) 139 mmol/L 136-145 N POTASSIUM (test code = K) 4.6 mmol/L 3.5-5.1 N CHLORIDE (test code = CL) 105.0 mmol/L 98-107 N CARBON DIOXIDE (test code = CO2) 29.0 mmol/L 21-32 N ANION GAP (test code = GAP) 9.6 10-20 L GLUCOSE (test code = GLU) 210 mg/dL 74-106 H BLOOD UREA NITROGEN (test code = BUN) 9 mg/dL 7-18 N GLOMERULAR FILTRATION RATE (test code = GFR) > 60 mL/min >=60 Estimated GFR by using Modified MDRD formula.Chronic kidney disease is defined as either kidney damageor GFR <60 mL/min/1.73 m2 for >3 months. CREATININE (test code = CREAT) 0.90 mg/dL 0.7-1.3 N BUN/CREATININE RATIO (test code = BUN/CREA) 10.0 10-20 N CALCIUM (test code = CA) 8.8 mg/dL 8.5-10.1 N BASIC METABOLIC [id number] 07:00:00* Test Item Value Reference Range Interpretation Comments SODIUM (test code = NA) 139 mmol/L 136-145 N POTASSIUM (test code = K) 4.6 mmol/L 3.5-5.1 N CHLORIDE (test code = CL) 105.0 mmol/L 98-107 N CARBON DIOXIDE (test code = CO2) mmol/L 21-32 ANION GAP (test code = GAP) 10-20 GLUCOSE (test code = GLU) mg/dL 74-106 BLOOD UREA NITROGEN (test code = BUN) mg/dL 7-18 GLOMERULAR FILTRATION RATE (test code = GFR) mL/min >=60 CREATININE (test code = CREAT) mg/dL 0.7-1.3 BUN/CREATININE RATIO (test code = BUN/CREA) 10-20 CALCIUM (test code = CA) mg/dL 8.5-10.1 CBC W/AUTO [id number] 06:50:00* Test Item Value Reference Range Interpretation Comments WHITE BLOOD CELL (test code = WBC) K/mm3 4.5-12.5 RED BLOOD CELL (test code = RBC) mill/mm3 4.0-5.8 HEMOGLOBIN (test code = HGB) 13.9 gram/dL 13.0-17.5 N HEMATOCRIT (test code = HCT) % 42.0-52.0 MEAN CELL VOLUME (test code = MCV) fL 80-98 MEAN CELL HGB (test code = MCH) picogram 27.0-33.0 MEAN CELL HGB CONCETRATION (test code = MCHC) gram/dL 33.0-36. 0 RED CELL DISTRIBUTION WIDTH (test code = RDW) % 11.6-16. 2 RED CELL DISTRIBUTION WIDTH SD (test code = RDW-SD) fL 37 .0-51.0 PLATELET COUNT (test code = PLT) K/mm3 150-450 MEAN PLATELET VOLUME (test code = MPV) fL 6.7-11.0 NEUTROPHIL % (test code = NT%) % 39.0-69.0 IMMATURE GRANULOCYTE % (test code = IG%) % 0.0-5.0 LYMPHOCYTE % (test code = LY%) % 25.0-55.0 MONOCYTE % (test code = MO%) % 0.0-10.0 EOSINOPHIL % (test code = EO%) % 0.0-5.0 BASOPHIL % (test code = BA%) % 0.0-1.0 NEUTROPHIL # (test code = NT#) K/mm3 1.8-7.7 LYMPHOCYTE # (test code = LY#) K/mm3 1.0-5.0 MONOCYTE # (test code = MO#) K/mm3 0-0.8 EOSINOPHIL # (test code = EO#) K/mm3 0.0-0.5 BASOPHIL # (test code = BA#) K/mm3 0.0-0.2 [id number] 20:20:00* Test Item Value Reference Range Interpretation Comments GLUBED (test code = GLUBED) 270 mg/dL 74-106 H Performed by certified repeater operator at [facility] [id number] 16:24:00* Test Item Value Reference Range Interpretation Comments GLUBED (test code = GLUBED) 233 mg/dL 74-106 H Performed by certified repeater operator at [facility] [id number] 11:31:00* Test Item Value Reference Range Interpretation Comments GLUBED (test code = GLUBED) 174 mg/dL 74-106 H Performed by certified repeater operator at [facility] ANTINUCLEAR ANTIBODIES [id number] 11:13:00* Test Item Value Reference Range Interpretation Comments NAT SCREEN (test code = ANASCR) Negative Negative Performed At: [facility] [id number] Neo Anderson MD Ph:[phone] B-TYPE NATRIURETIC [id number] 09:49:00* Test Item Value Reference Range Interpretation Comments B-TYPE NATRIURETIC PEPTIDE (test code = BNP) 23.12 pgram/mL 0-100 N BASIC METABOLIC [id number] 09:00:00* Test Item Value Reference Range Interpretation Comments SODIUM (test code = NA) 136 mmol/L 136-145 N POTASSIUM (test code = K) 4.0 mmol/L 3.5-5.1 N CHLORIDE (test code = CL) 104.0 mmol/L 98-107 N CARBON DIOXIDE (test code = CO2) 29.0 mmol/L 21-32 N ANION GAP (test code = GAP) 7.0 10-20 L GLUCOSE (test code = GLU) 197 mg/dL 74-106 H BLOOD UREA NITROGEN (test code = BUN) 10 mg/dL 7-18 N GLOMERULAR FILTRATION RATE (test code = GFR) > 60 mL/min >=60 Estimated GFR by using Modified MDRD formula.Chronic kidney disease is defined as either kidney damageor GFR <60 mL/min/1.73 m2 for >3 months. CREATININE (test code = CREAT) 0.90 mg/dL 0.7-1.3 N BUN/CREATININE RATIO (test code = BUN/CREA) 11.1 10-20 N CALCIUM (test code = CA) 8.3 mg/dL 8.5-10.1 L LIPID PROFILE (CORONARY RISK)2019-02-21 09:00:00* Test Item Value Reference Range Interpretation Comments TRIGLYCERIDES (test code = TRIG) 481 mg/dL 20-150 H CHOLESTEROL (test code = CHOL) 151 mg/dL 0-200 N CHOLESTEROL/HDL RATIO (test code = CHOLHDL) 5.0 RATIO 0-4.9 H RISK ASSOCIATED WITH CHOL/HDL RATIOS: Risk Male Female1/2 AVERAGE 3.43 3.27AVERAGE 4.97 4.442X AVERAGE 9.55 7.053X AVERAGE 23.39 11.04 REFERENCE VALUE IS RELATED TO RISK LEVELS ASRECOMMENDED BY THE BRIANA. HEART, LUNG, AND BLOOD INST. HDL CHOLESTEROL (test code = HDL) 30 mg/dL 40-60 L LIPOPROTEIN LDL (test code = LDL) 72 mg/dL 100-129 L Reference Interval: mg/dL mmol/L Optimal <100 <2.6Near/above optimal 100-129 2.6- 3.3Borderline High 130-159 3.4-4.1High 160-189 4.1-4.9Very High >=190 >=4.9========= This LDL result is a direct measurement.========= [id number] 09:00:00* Test Item Value Reference Range Interpretation Comments MAGNESIUM (test code = MAG) 1.7 mg/dL 1.8-2.4 L BASIC METABOLIC [id number] 08:47:00* Test Item Value Reference Range Interpretation Comments SODIUM (test code = NA) 136 mmol/L 136-145 N POTASSIUM (test code = K) 4.0 mmol/L 3.5-5.1 N CHLORIDE (test code = CL) 104.0 mmol/L 98-107 N CARBON DIOXIDE (test code = CO2) mmol/L 21-32 ANION GAP (test code = GAP) 10-20 GLUCOSE (test code = GLU) mg/dL 74-106 BLOOD UREA NITROGEN (test code = BUN) mg/dL 7-18 GLOMERULAR FILTRATION RATE (test code = GFR) mL/min >=60 CREATININE (test code = CREAT) mg/dL 0.7-1.3 BUN/CREATININE RATIO (test code = BUN/CREA) 10-20 CALCIUM (test code = CA) mg/dL 8.5-10.1 LIPID PROFILE (CORONARY RISK)2019-02-21 08:47:00* Test Item Value Reference Range Interpretation Comments TRIGLYCERIDES (test code = TRIG) mg/dL 20-150 CHOLESTEROL (test code = CHOL) mg/dL 0-200 CHOLESTEROL/HDL RATIO (test code = CHOLHDL) RATIO 0-4.9 HDL CHOLESTEROL (test code = HDL) mg/dL 40-60 LIPOPROTEIN LDL (test code = LDL) mg/dL 100-129 [id number] 08:47:00* Test Item Value Reference Range Interpretation Comments MAGNESIUM (test code = MAG) mg/dL 1.8-2.4 PROTHROMBIN [id number] 08:33:00* Test Item Value Reference Range Interpretation Comments PROTHROMBIN TIME PATIENT (test code = PTP) 11.3 seconds 9.0-14.0 N INTERNATIONAL NORMAL RATIO (test code = INR) 1.0 0.8-1.2 N The therapeutic range for oral anticoagulant therapy formost indications is an international normalized ratio (INR)of between 2.0 and 3.0. The recommended therapeutic INRrange for various clinical situations is listed below: Clinical Situation INR range Pulmonary e mbolism treatment (2.0-3.0)Venous thrombosis treatmentVenous thrombosis prophylaxis (high risk surgery)Prevention of systemic embolism from: Acute myocardial infarction Valvular heart disease Atrial fibrillation Mechanical prosthetic heart valves (2.5-3.5) IS PATIENT ON ANTICOAGULANTS? NCBC W/AUTO [id number] 08:32:00* Test Item Value Reference Range Interpretation Comments WHITE BLOOD CELL (test code = WBC) 7.3 K/mm3 4.5-12.5 N RED BLOOD CELL (test code = RBC) 4.69 mill/mm3 4.0-5.8 N HEMOGLOBIN (test code = HGB) 13.4 gram/dL 13.0-17.5 N HEMATOCRIT (test code = HCT) 41.4 % 42.0-52.0 L MEAN CELL VOLUME (test code = MCV) 88.3 fL 80-98 N MEAN CELL HGB (test code = MCH) 28.6 picogram 27.0-33.0 N MEAN CELL HGB CONCETRATION (test code = MCHC) 32.4 gram/dL 33.0-36. 0 L RED CELL DISTRIBUTION WIDTH (test code = RDW) 13.1 % 11.6-16. 2 N RED CELL DISTRIBUTION WIDTH SD (test code = RDW-SD) 41.6 fL 37 .0-51.0 N PLATELET COUNT (test code = PLT) 227 K/mm3 150-450 N MEAN PLATELET VOLUME (test code = MPV) 11.2 fL 6.7-11.0 H NEUTROPHIL % (test code = NT%) 65.5 % 39.0-69.0 N IMMATURE GRANULOCYTE % (test code = IG%) 0.7 % 0.0-5.0 N LYMPHOCYTE % (test code = LY%) 26.1 % 25.0-55.0 N MONOCYTE % (test code = MO%) 5.7 % 0.0-10.0 N EOSINOPHIL % (test code = EO%) 1.4 % 0.0-5.0 N BASOPHIL % (test code = BA%) 0.6 % 0.0-1.0 N NUCLEATED RBC % (test code = NRBC%) 0.0 % 0-0 N NEUTROPHIL # (test code = NT#) 4.76 K/mm3 1.8-7.7 N IMMATURE GRANULOCYTE # (test code = IG#) 0.05 x10 3/uL 0-0.03 H LYMPHOCYTE # (test code = LY#) 1.89 K/mm3 1.0-5.0 N MONOCYTE # (test code = MO#) 0.41 K/mm3 0-0.8 N EOSINOPHIL # (test code = EO#) 0.10 K/mm3 0.0-0.5 N BASOPHIL # (test code = BA#) 0.04 K/mm3 0.0-0.2 N NUCLEATED RBC # (test code = NRBC#) 0.00 K/mm3 0.0-0.1 N MANUAL DIFF REQUIRED (test code = MDIFF) NO CBC W/AUTO [id number] 08:25:00* Test Item Value Reference Range Interpretation Comments WHITE BLOOD CELL (test code = WBC) K/mm3 4.5-12.5 RED BLOOD CELL (test code = RBC) mill/mm3 4.0-5.8 HEMOGLOBIN (test code = HGB) 13.4 gram/dL 13.0-17.5 N HEMATOCRIT (test code = HCT) % 42.0-52.0 MEAN CELL VOLUME (test code = MCV) fL 80-98 MEAN CELL HGB (test code = MCH) picogram 27.0-33.0 MEAN CELL HGB CONCETRATION (test code = MCHC) gram/dL 33.0-36. 0 RED CELL DISTRIBUTION WIDTH (test code = RDW) % 11.6-16. 2 RED CELL DISTRIBUTION WIDTH SD (test code = RDW-SD) fL 37 .0-51.0 PLATELET COUNT (test code = PLT) K/mm3 150-450 MEAN PLATELET VOLUME (test code = MPV) fL 6.7-11.0 NEUTROPHIL % (test code = NT%) % 39.0-69.0 IMMATURE GRANULOCYTE % (test code = IG%) % 0.0-5.0 LYMPHOCYTE % (test code = LY%) % 25.0-55.0 MONOCYTE % (test code = MO%) % 0.0-10.0 EOSINOPHIL % (test code = EO%) % 0.0-5.0 BASOPHIL % (test code = BA%) % 0.0-1.0 NEUTROPHIL # (test code = NT#) K/mm3 1.8-7.7 LYMPHOCYTE # (test code = LY#) K/mm3 1.0-5.0 MONOCYTE # (test code = MO#) K/mm3 0-0.8 EOSINOPHIL # (test code = EO#) K/mm3 0.0-0.5 BASOPHIL # (test code = BA#) K/mm3 0.0-0.2 COMPLEMENT [id number] 08:14:00* Test Item Value Reference Range Interpretation Comments COMPLEMENT C3 (test code = COMC3) mg/dL COMPLEMENT [id number] 08:14:00* Test Item Value Reference Range Interpretation Comments COMPLEMENT C4 (test code = COMC4) 24 mg/dL 14-44 COMPLEMENT [id number] 08:14:00* Test Item Value Reference Range Interpretation Comments COMPLEMENT C3 (test code = COMC3) 161 mg/dL 82-167 Performed At: [facility] [id number] Kyle L MD Ph:[phone] COMPLEMENT [id number] 08:14:00* Test Item Value Reference Range Interpretation Comments COMPLEMENT C4 (test code = COMC4) 24 mg/dL 14-44 [id number] 20:28:00* Test Item Value Reference Range Interpretation Comments GLUBED (test code = GLUBED) 287 mg/dL 74-106 H Performed by certified repeater operator at [facility] [id number] 16:07:00* Test Item Value Reference Range Interpretation Comments GLUBED (test code = GLUBED) 232 mg/dL 74-106 H Performed by certified repeater operator at [facility] SED RATE [id number] 15:41:00* Test Item Value Reference Range Interpretation Comments SED RATE WESTERGREN (test code = SEDW) 12 mm/hr 0-15 N SED [id number] 15:41:00* Test Item Value Reference Range Interpretation Comments SED RATE (test code = SEDW) 12 mm/hr 0-15 WINTROBE METHOD: NORMAL RANGE FOR MEN: 0-9 MM/HR WOMAN: 0-20 MM/HR [id number] 11:38:00* Test Item Value Reference Range Interpretation Comments GLUBED (test code = GLUBED) 232 mg/dL 74-106 H Performed by certified repeater operator at [facility] [id number] 10:57:00* Test Item Value Reference Range Interpretation Comments TROPONIN-I (test code = TROPI) <0.015 ng/mL 0-0.045 N COMMENTS TO SENIOR MECHANICAL DESIGNER: COLLECT 3 HOURS AFTER PREVIOUS SAMPLEDRUGS OF ABUSE SCREEN [id number] 10:46:00* Test Item Value Reference Range Interpretation Comments UA PH DIPSTICK (test code = KENNEDY) 6.0 5.0-8.0 URN COCAINE (test code = COCAURN) NEGATIVE <300 ng/mL URN CANNABINOIDS (test code = CANNABURN) NEGATIVE <50 ng/mL URN AMPHETAMINE (test code = AMPHETURN) NEGATIVE <1000 ng/mL URN BARBITURATE (test code = BARBITURN) NEGATIVE <200 ng/mL URN BENZODIAZEPINE (test code = BENZOURN) NEGATIVE <200 ng/mL URN OPIATES (test code = OPIATURN) POSITIVE <300 ng/mL A This test provides only a preliminary test result. A morespecific alternate chemical method must be used in order toobtain a confirmed analytical result. Gas chromatography/mass spectrometry (GC/MS) is thepreferred confirmatory method. Other chemical confirmationmethods are available. Clinical consideration and professional judgment should be applied to any drug of abusetest result, particularly when preliminary positive resultsare used.Unconfirmed screening results must not be used fornon-medical purposes (e.g., employment testing, legaltesting). URN PHENCYCLIDINE (PCP) (test code = PHENCURN) NEGATIVE <25 ng/ mL URN METHADONE (test code = METHAURN) NEGATIVE <300 ng/mL SPECIMEN COMMENTS: sample in labCOMMENTS TO SENIOR MECHANICAL DESIGNER: sample in labDRUGS OF ABUSE SCREEN [id number] 10:00:00* Test Item Value Reference Range Interpretation Comments UA PH DIPSTICK (test code = KENNEDY) 5.0-8.0 URN COCAINE (test code = COCAURN) NEGATIVE <300 ng/mL URN CANNABINOIDS (test code = CANNABURN) NEGATIVE <50 ng/mL URN AMPHETAMINE (test code = AMPHETURN) NEGATIVE <1000 ng/mL URN BARBITURATE (test code = BARBITURN) NEGATIVE <200 ng/mL URN BENZODIAZEPINE (test code = BENZOURN) NEGATIVE <200 ng/mL URN OPIATES (test code = OPIATURN) POSITIVE <300 ng/mL A This test provides only a preliminary test result. A morespecific alternate chemical method must be used in order toobtain a confirmed analytical result. Gas chromatography/mass spectrometry (GC/MS) is thepreferred confirmatory method. Other chemical confirmationmethods are available. Clinical consideration and professional judgment should be applied to any drug of abusetest result, particularly when preliminary positive resultsare used.Unconfirmed screening results must not be used fornon-medical purposes (e.g., employment testing, legaltesting). URN PHENCYCLIDINE (PCP) (test code = PHENCURN) NEGATIVE <25 ng/ mL URN METHADONE (test code = METHAURN) NEGATIVE <300 ng/mL SPECIMEN COMMENTS: sample in labCOMMENTS TO SENIOR MECHANICAL DESIGNER: sample in lab- XR CHEST 1 [id number] 07:34:00 Name: CORNELIO PEÑA [facility] : 1965 Age/S:53 /M [address] [facility] Unit#:[id number] Loc: V[address] [place] [address] Phys: Candy Ashraf MD Dis Date: PHONE #: [phone] Status: ADM IN FAX #: [phone] Exam Date: 02/19/2019 Reason: CP EXAMS: CPT CODE: [id number] XR CHEST 1 V [id number] HISTORY: Chest pain TECHNIQUE: AP chest x-ray COMPARISON: 08/26/17 FINDINGS: No airspace consolidation or pleural effusion. Elevated right hemidiaphragm. Normal heart size. Mediastinal silhouette is unremarkable. Visualized osseous structures are grossly intact. IMPRESSION: No radiographic evidence of acute cardiopulmonary process. at 0734 Reported and signed by: Rosario Mata D.O. CC: Lin Ceballos MD; Candy Ashraf MD Technologist: ROSE FLORES RT(R),CT Trnscrpt Data: 02/20/2019 (0734) [email or web address] Orig Print D/T: S: 02/20/2019 (0737) PAGE 1 Signed Report [id number] 06:17:00* Test Item Value Reference Range Interpretation Comments TROPONIN-I (test code = TROPI) <0.015 ng/mL 0-0.045 N COMMENTS TO SENIOR MECHANICAL DESIGNER: COLLECT 3 HOURS AFTER PREVIOUS SAMPLEBASIC METABOLIC [id number] 06:17:00* Test Item Value Reference Range Interpretation Comments SODIUM (test code = NA) 136 mmol/L 136-145 N POTASSIUM (test code = K) 3.3 mmol/L 3.5-5.1 L CHLORIDE (test code = CL) 102.0 mmol/L 98-107 N CARBON DIOXIDE (test code = CO2) 24.0 mmol/L 21-32 N ANION GAP (test code = GAP) 13.3 10-20 N GLUCOSE (test code = GLU) 282 mg/dL 74-106 H BLOOD UREA NITROGEN (test code = BUN) 13 mg/dL 7-18 N GLOMERULAR FILTRATION RATE (test code = GFR) > 60 mL/min >=60 Estimated GFR by using Modified MDRD formula.Chronic kidney disease is defined as either kidney damageor GFR <60 mL/min/1.73 m2 for >3 months. CREATININE (test code = CREAT) 1.00 mg/dL 0.7-1.3 N BUN/CREATININE RATIO (test code = BUN/CREA) 13.0 10-20 N CALCIUM (test code = CA) 8.4 mg/dL 8.5-10.1 L LIPID PROFILE (CORONARY RISK)2019-02-20 06:17:00* Test Item Value Reference Range Interpretation Comments TRIGLYCERIDES (test code = TRIG) 746 mg/dL 20-150 H CHOLESTEROL (test code = CHOL) 161 mg/dL 0-200 N CHOLESTEROL/HDL RATIO (test code = CHOLHDL) 5.0 RATIO 0-4.9 H RISK ASSOCIATED WITH CHOL/HDL RATIOS: Risk Male Female1/2 AVERAGE 3.43 3.27AVERAGE 4.97 4.442X AVERAGE 9.55 7.053X AVERAGE 23.39 11.04 REFERENCE VALUE IS RELATED TO RISK LEVELS ASRECOMMENDED BY THE BRIANA. HEART, LUNG, AND BLOOD INST. HDL CHOLESTEROL (test code = HDL) 27 mg/dL 40-60 L LIPOPROTEIN LDL (test code = LDL) 63 mg/dL 100-129 L Reference Interval: mg/dL mmol/L Optimal <100 <2.6Near/above optimal 100-129 2.6- 3.3Borderline High 130-159 3.4-4.1High 160-189 4.1-4.9Very High >=190 >=4.9========= This LDL result is a direct measurement.========= BASIC METABOLIC [id number] 06:08:00* Test Item Value Reference Range Interpretation Comments SODIUM (test code = NA) 136 mmol/L 136-145 N POTASSIUM (test code = K) 3.3 mmol/L 3.5-5.1 L CHLORIDE (test code = CL) 102.0 mmol/L 98-107 N CARBON DIOXIDE (test code = CO2) mmol/L 21-32 ANION GAP (test code = GAP) 10-20 GLUCOSE (test code = GLU) mg/dL 74-106 BLOOD UREA NITROGEN (test code = BUN) mg/dL 7-18 GLOMERULAR FILTRATION RATE (test code = GFR) mL/min >=60 CREATININE (test code = CREAT) mg/dL 0.7-1.3 BUN/CREATININE RATIO (test code = BUN/CREA) 10-20 CALCIUM (test code = CA) mg/dL 8.5-10.1 LIPID PROFILE (CORONARY RISK)2019-02-20 06:08:00* Test Item Value Reference Range Interpretation Comments TRIGLYCERIDES (test code = TRIG) mg/dL 20-150 CHOLESTEROL (test code = CHOL) mg/dL 0-200 CHOLESTEROL/HDL RATIO (test code = CHOLHDL) RATIO 0-4.9 HDL CHOLESTEROL (test code = HDL) mg/dL 40-60 LIPOPROTEIN LDL (test code = LDL) mg/dL 100-129 [id number] 06:07:00* Test Item Value Reference Range Interpretation Comments GLYCOSYLATED HEMOGLOBIN (HA1C) (test code = GLYHGB) 9.3 % HbA1 4. 8-6.0 H ESTIMATED AVERAGE GLUCOSE (test code = EAG) 220 MG/DL CBC W/AUTO [id number] 05:23:00* Test Item Value Reference Range Interpretation Comments WHITE BLOOD CELL (test code = WBC) 7.0 K/mm3 4.5-12.5 N RED BLOOD CELL (test code = RBC) 4.60 mill/mm3 4.0-5.8 N HEMOGLOBIN (test code = HGB) 13.1 gram/dL 13.0-17.5 N HEMATOCRIT (test code = HCT) 40.5 % 42.0-52.0 L MEAN CELL VOLUME (test code = MCV) 88.0 fL 80-98 N MEAN CELL HGB (test code = MCH) 28.5 picogram 27.0-33.0 N MEAN CELL HGB CONCETRATION (test code = MCHC) 32.3 gram/dL 33.0-36. 0 L RED CELL DISTRIBUTION WIDTH (test code = RDW) 13.1 % 11.6-16. 2 N RED CELL DISTRIBUTION WIDTH SD (test code = RDW-SD) 42.0 fL 37 .0-51.0 N PLATELET COUNT (test code = PLT) 227 K/mm3 150-450 N MEAN PLATELET VOLUME (test code = MPV) 11.9 fL 6.7-11.0 H NEUTROPHIL % (test code = NT%) 57.6 % 39.0-69.0 N IMMATURE GRANULOCYTE % (test code = IG%) 1.0 % 0.0-5.0 N LYMPHOCYTE % (test code = LY%) 33.1 % 25.0-55.0 N MONOCYTE % (test code = MO%) 5.7 % 0.0-10.0 N EOSINOPHIL % (test code = EO%) 1.7 % 0.0-5.0 N BASOPHIL % (test code = BA%) 0.9 % 0.0-1.0 N NUCLEATED RBC % (test code = NRBC%) 0.0 % 0-0 N NEUTROPHIL # (test code = NT#) 4.02 K/mm3 1.8-7.7 N IMMATURE GRANULOCYTE # (test code = IG#) 0.07 x10 3/uL 0-0.03 H LYMPHOCYTE # (test code = LY#) 2.31 K/mm3 1.0-5.0 N MONOCYTE # (test code = MO#) 0.40 K/mm3 0-0.8 N EOSINOPHIL # (test code = EO#) 0.12 K/mm3 0.0-0.5 N BASOPHIL # (test code = BA#) 0.06 K/mm3 0.0-0.2 N NUCLEATED RBC # (test code = NRBC#) 0.00 K/mm3 0.0-0.1 N MANUAL DIFF REQUIRED (test code = MDIFF) NO [id number] 01:39:00* Test Item Value Reference Range Interpretation Comments GLUBED (test code = GLUBED) 322 mg/dL 74-106 H Performed by certified repeater operator at [facility] COMPREHENSIVE METABOLIC [id number] 22:39:00* Test Item Value Reference Range Interpretation Comments SODIUM (test code = NA) 134 mmol/L 135-148 L POTASSIUM (test code = K) 3.9 mmol/L 3.5-5.1 N CHLORIDE (test code = CL) 98 mmol/L 101-109 L CARBON DIOXIDE (test code = CO2) 24.9 mmol/L 21-32 N ANION GAP (test code = GAP) 15 mmol/L 10-20 N GLUCOSE (test code = GLU) 471 mg/dL 74-106 H BLOOD UREA NITROGEN (test code = BUN) 14 mg/dL 3-21 N CREATININE (test code = CREAT) 1.12 mg/dL 0.55-1.3 N BUN/CREATININE RATIO (test code = BUN/CREA) 12.5 10-20 N TOTAL PROTEIN (test code = PROT) 6.6 g/dL 6.5-8.4 N ALBUMIN (test code = ALB) 3.3 g/dL 3.4-4.8 L GLOBULIN (test code = GLOB) 3.3 G/DL 1-10 N ALBUMIN/GLOBULIN RATIO (test code = A/G) 1.0 RATIO 0.75-1.50 N CALCIUM (test code = CA) 7.9 mg/dL 8.4-10.2 L BILIRUBIN TOTAL (test code = BILT) 0.30 mg/dL 0.0-1.0 N SGOT/AST (test code = AST) 12 U/L 6-32 N SGPT/ALT (test code = ALT) 28 U/L 12-78 N N ote: Change in REFERENCE RANGE due to new reagent method. ALKALINE PHOSPHATASE TOTAL (test code = ALKP) 122 U/L 38-126 N [id number] 22:39:00* Test Item Value Reference Range Interpretation Comments LIPASE (test code = LIP) 205 U/L 128-270 N [id number] 22:39:00* Test Item Value Reference Range Interpretation Comments MAGNESIUM (test code = MAG) 1.5 mg/dL 1.6-2.3 L CPK-MB [id number] 22:39:00* Test Item Value Reference Range Interpretation Comments CREATINE KINASE (CK) (test code = CK) 127 U/L 39-308 N CKMB (test code = CKMBT) 1.8 ng/mL 0.0-5.0 N RELATIVE % INDEX (test code = REL%) 1.4 % [id number] 22:39:00* Test Item Value Reference Range Interpretation Comments TROPONIN-I (test code = TROPI) <0.015 ng/mL 0.00-0.056 N URINALYSIS W/O [id number] 22:24:00* Test Item Value Reference Range Interpretation Comments UA COLOR (test code = COLU) YELLOW YELLOW UA APPEARANCE (test code = APPU) CLEAR CLEAR UA GLUCOSE DIPSTICK (test code = DGLUU) 1000 (3+) mg/dL NEGATIVE A UA BILIRUBIN DIPSTICK (test code = BILU) NEGATIVE mg/dL NEGATIVE UA KETONE DIPSTICK (test code = KETU) neg mg/dL NEGATIVE UA SPECIFIC GRAVITY (test code = SGU) 1.010 1.001-1.035 UA BLOOD DIPSTICK (test code = SONU) neg Joey/uL NEGATIVE UA PH DIPSTICK (test code = KENNEDY) 5.0 5.0-8.0 UA PROTEIN DIPSTICK (test code = PROU) neg mg/dL Neg-15 UA UROBILINIOGEN DIPSTICK (test code = URO) norm mg/dL 0.0-0.2 UA NITRITE DIPSTICK (test code = WISAM) NEGATIVE NEGATIVE UA LEUKOCYTE ESTERASE DIPSTICK (test code = LEUU) neg uL NEGA TIVE UA MICROSCOPIC NEEDED? (test code = UAMICRO) NO, NOT INDICATED UA MICROSCOPIC NOT INDICATED UA MICROSCOPIC EXAMS ARE NOT PERFORMED UNLESS ONE OF THECHEMICAL TESTS OR VISUAL EXAMINATION IS ABNORMAL. THE MICROSCOPIC EVALUATIONS ARE PERFORMED ON ALL ABNORMALRESULTS AND/OR WHEN SPECIFICALLY ORDERED BY A PHYSICIAN. B-TYPE NATRIURETIC [id number] 22:22:00* Test Item Value Reference Range Interpretation Comments B-TYPE NATRIURETIC PEPTIDE (test code = BNP) 5.8 pg/mL 0-100 N [id number] 22:22:00* Test Item Value Reference Range Interpretation Comments D-DIMER (test code = DDIMER) < 100 ng/ml < 600 CBC W/AUTO [id number] 22:16:00* Test Item Value Reference Range Interpretation Comments WHITE BLOOD CELL (test code = WBC) 6.6 K/mm3 4.5-12.5 N RED BLOOD CELL (test code = RBC) 4.59 mill/mm3 4.0-5.8 N HEMOGLOBIN (test code = HGB) 14.2 gram/dL 13.0-17.5 N HEMATOCRIT (test code = HCT) 40.1 % 42.0-52.0 L MEAN CELL VOLUME (test code = MCV) 87.4 fL 80-98 N MEAN CELL HGB (test code = MCH) 30.9 picogram 27.0-33.0 N MEAN CELL HGB CONCETRATION (test code = MCHC) 35.4 gram/dL 33.0-36. 0 N RED CELL DISTRIBUTION WIDTH (test code = RDW) 13.4 % 11.6-16. 2 N RED CELL DISTRIBUTION WIDTH SD (test code = RDW-SD) 41.6 fL 39 .2-49.5 N PLATELET COUNT (test code = PLT) 243 K/mm3 150-450 N MEAN PLATELET VOLUME (test code = MPV) 11.4 fL 6.7-11.0 H NEUTROPHIL % (test code = NT%) 60.7 % 39.0-69.0 N LYMPHOCYTE % (test code = LY%) 29.7 % 25.0-55.0 N MONOCYTE % (test code = MO%) 7.7 % 0.0-10.0 N EOSINOPHIL % (test code = EO%) 1.4 % 0.0-5.0 N BASOPHIL % (test code = BA%) 0.5 % 0.0-1.0 N NEUTROPHIL # (test code = NT#) 4.04 K/mm3 1.8-7.7 N LYMPHOCYTE # (test code = LY#) 1.97 K/mm3 1.0-5.0 N MONOCYTE # (test code = MO#) 0.51 K/mm3 0-0.8 N EOSINOPHIL # (test code = EO#) 0.09 K/mm3 0.0-0.5 N BASOPHIL # (test code = BA#) 0.03 K/mm3 0.0-0.2 N MANUAL DIFF REQUIRED (test code = MDIFF) NO CHEM NRZDI7501-20-24 08:40:002.9[facility] OOPBZ9132-78-13 08:40:001.9 [facility] SYZYA7788-87-31 08:40:0079[facility]annCHEM PANEL 2018-05-05 08:40:008.2[facility]annCHEM JDOYN6866-33-02 08:40:0020[facility]annCHEM WVZBT7174-43-16 08:40:83578Kxiinbtk HermannCHEM ITLTU3212-91-58 08:40:0012[facility]annCHE[facility] VWKQY1380-37-20 08:40:003.5[facility]annCHEM BGBRP3909-33-82 08:40:001.08[facility]annCHEM ZAKOC5910-49-81 08:40:97643 [facility]CHE[facility] KGVUS8484-00-95 08:40:71981Dembvbgi HermannCHEM PANEL 2018-05-05 08:40:0014.5[facility] LvfnkdzZXPHMDBJZX0606-34-39 08:40:36848Mktbyikr PhnlhedBNENOWDNAA9165-56-67 08:40:009.9[facility] KtvaohfULHTSPADDM2444-31-80 08:40:0014.2[facility] XjavfvsDWAKYFKUTX0436-48-12 08:40:00* Test Item Value Reference Range Interpretation Comments MCH (test code = MCH) 28.2 pg 27.0-31.0 [facility] LatsfzoFGFNDCCWQK4467-05-32 08:40:0037.0[facility]annHEMATOLOGY 2018-05-05 08:40:0084.7[facility] HafgyvoQIIZCEKKHH6702-69-51 08:40:0012.3[facility] DkjfrlnVDDSLDPYIN7638-81-69 08:40:0033.3[facility] LicvlsfYWQFLWEEEY9361-98-11 08:40:0012.4[facility] FvibtfkJLSSARIRQB6488-03-57 08:40:004.37[facility] WKLSYEBSRB2622-25-86 08:40:001.0[facility] DzalkqjGSBNXZMFMN6055-08-68 08:40:000.1 [facility] TqukgxzFZPVTQUXQH6133-02-08 08:40:009.7[facility]annHEMATOLOGY 2018-05-05 08:40:001.5[facility] HywhlopOIFHHYCRTB7029-94-22 08:40:000.3[facility] FxbhhanWNVXEZDSJE4684-98-26 08:40:000.8[facility] QmtvmmoBNSXCRUULG9177-58-17 08:40:0012.2[facility] XcvfgudNENEWLFSRV8962-74-74 08:40:008.2[facility] TNSFNNEOMH7963-25-05 08:40:0078.5[facility] HermannPARATHYROID OPNOIEJ7463-06-02 08:40:001.05[facility] HermannPARATHYROID FQBBSZW8532-42-37 08:40:001.10[facility]annCHEM UKNSK4948-76-88 10:37:003.6[facility]annCHEM XUQUM7969-08-50 10:37:0082[facility]annCHEM WSLYQ5666-93-82 10:37:0020[facility]annCHEM ONALT5282-24-84 10:37:91060Umcqicfm HermannCHEM NIFEZ2188-85-23 10:37:008.5 [facility]annCHE[facility] NXEHC1258-67-25 10:37:74260Hoydwxip HermannCHEM PANEL 2018-05-04 10:37:003.6[facility]annCHEM SOMJS9489-98-48 10:37:001.05[facility]annCHEM HOVGR0003-92-61 10:37:0013[facility]annCHEM ISPNA0220-17-36 10:37:78178Tlfjbzjk HermannCHEM KKZAO4412-99-98 10:37:0018.6[facility]annCHEM YPKSL2408-34-22 10:37:001.6[facility] ClkqkscOFFGDUXKLS2247-93-77 10:37:004.64 [facility] UeywlgnWGXNNLSFEX3189-74-35 10:37:0033.7[facility]annHEMATOLOGY 2018-05-04 10:37:71866Iqvxnqyv BguzdzxVKBZMGKSHS7926-76-63 10:37:0014.1[facility] GzlwqxpEYPQXMOAZH3577-30-40 10:37:00* Test Item Value Reference Range Interpretation Comments MCH (test code = MCH) 28.7 pg 27.0-31.0 [facility] ZivxuyvTSXBBGLNNE5391-74-18 10:37:0085.4[facility]annHEMATOLOGY 2018-05-04 10:37:0013.3[facility] XgbuijqYJWSJTEPEN6629-12-60 10:37:0013.9[facility] JnfkjemYUZSGVLGAW5392-01-38 10:37:009.9[facility] EcmrnsaOSTAUEOSRO3413-97-87 10:37:0039.6[facility] XtnwjceTIBGKUGDIQ3794-97-37 10:37:000.1[facility] EDCGYZYDZZ3683-09-92 10:37:000.1[facility] FtakewrEHXWJONJMD9474-53-48 10:37:000.8 [facility] MhupwifLDHBHSIYNK3846-95-10 10:37:008.0[facility]annHEMATOLOGY 2018-05-04 10:37:0072.9[facility] OveewgtRGHIMIACTS5774-99-40 10:37:0017.9[facility] SuilrnsPQZVDMPWFZ1711-27-59 10:37:0010.2[facility] LguzovbFKYBMOYZVE9779-75-47 10:37:000.4[facility] TorengdCZSRRPNBAX5891-95-87 10:37:002.5[facility] DTIEFAVFXM5989-57-66 10:37:001.1[facility] VsclzegYJFCZRBGJR1687-42-30 10:37:00* Test Item Value Reference Range Interpretation Comments PTT (test code = PTT) 37.7 s 22.9-35.8 [facility] MayenysQIYGDQEFHZ0868-27-76 10:37:00* Test Item Value Reference Range Interpretation Comments INR (test code = INR) 1.06 1 0.85-1.17 [facility] VoimwoeXMWKZWLTZY2108-34-61 10:37:00* Test Item Value Reference Range Interpretation Comments PT (test code = PT) 13.8 s 12.0-14.7 [facility]annCARDIAC EYMVGQC4123-99-60 02:29:00<0.02[facility]annCARDIAC TWYPHZY9605-00-76 02:29:00<0.010[facility]annCARDIAC FAURCEU6387-08-31 02:29:18498Gcbwulgy HermannCARDIAC RZCGMQT9026-57-42 02:29:003.2[facility] CARDIAC PYOAWUH2258-96-78 02:29:00* Test Item Value Reference Range Interpretation Comments CK MB Index (test code = CK MB Index) 1.4 1 <=2.5 [facility] XrhpliqVCZPVONBAT6930-71-60 02:29:00* Test Item Value Reference Range Interpretation Comments PT (test code = PT) 14.0 s 12.0-14.7 [facility] QnwcceoUNPHGUFCWS0293-09-02 02:29:00* Test Item Value Reference Range Interpretation Comments PTT (test code = PTT) 34.6 s 22.9-35.8 [facility] RrxtfmdSTEPEPQRQL5358-96-57 02:29:00* Test Item Value Reference Range Interpretation Comments INR (test code = INR) 1.08 1 0.85-1.17 [facility] DfxcgngZQVMDQAWKD8273-88-91 02:29:000.1[facility] HermannHEMATOLOGY 2018-05-04 02:29:001.1[facility] WtvcdjgLQQFJMIOSS9319-76-19 02:29:000.1[facility] UhmmczaNCUWKHJCRX9248-56-56 02:29:000.5[facility] QafbtoyBOLDLPOJNI2592-27-59 02:29:002.2[facility] AznfasaBLNLXSUCDW0700-79-19 02:29:0012.1[facility] KDMKRXCXRB6539-10-24 02:29:000.8[facility] PozixieCACDOJAZPR9152-58-55 02:29:007.2 [facility] IdcbgkcQTNXVMHLKP0358-84-27 02:29:0014.0[facility] HermannHEMATOLOGY 2018-05-04 02:29:0077.5[facility] ZydzxhfNMAONTTFBQ7231-94-05 02:29:00* Test Item Value Reference Range Interpretation Comments MCH (test code = MCH) 28.5 pg 27.0-31.0 [facility] HieaknmJKXAFVLMWU1133-77-96 02:29:0085.4[facility] HermannHEMATOLOGY 2018-05-04 02:29:0041.3[facility] LfdceopWJPLRIDFGU0418-56-51 02:29:0013.8[facility] WdvqfkaOPJPKIPZMV8080-85-59 02:29:004.84[facility] MeheeeqWFRQOXDYIQ6170-81-13 02:29:0015.7[facility] CodegxhIWTFWWBEBG6759-81-53 02:29:0033.4[facility] CXOGQHMDEE9923-42-49 02:29:009.7[facility] GoyspiqRZATMYYUOB2215-60-30 02:29:60289 [facility] AhqqtvrFETJNGDZMP5684-43-03 02:29:0014.6[facility] HermannIMMUNOLOGY 2018-05-04 02:29:00Negative *NA*(05/03/18 9:29 PM)[facility] HermannIMMUNOLOGY 2018-05-04 02:29:00Negative *NA*(05/03/18 9:29 PM)[facility] HermannIMMUNOLOGY 2018-05-04 02:29:00Negative *NA*(05/03/18 9:29 PM)[facility] HermannIMMUNOLOGY 2018-05-04 02:29:00Negative *NA*(05/03/18 9:29 PM)[facility] HermannMYOGLOBIN 2018-05-04 02:29:44382Hginchim HermannURINE AND NTBHX2718-16-92 21:00:57Negative *NA*(05/03/18 4:00 PM)[facility] XYLZX1543-20-35 21:00:57Negative (05/03/18 4:00 PM)[facility] UNVZK7579-24-56 21:00:57Negative (05/03/18 4:00 PM)[facility] YIDDD1865-97-74 21:00:57Negative (05/03/18 4:00 PM)[facility] BIVND3899-41-84 21:00:570.2[facility] CPMTV3496-86-98 21:00:57Clear (05/03/18 4:00 PM)[facility] URINE AND ORNYE7660-71-28 21:00:57Yellow *NA*(05/03/18 4:00 PM)[facility] URINE AND XWTNP1866-41-67 21:00:57* Test Item Value Reference Range Interpretation Comments UA pH (test code = UA pH) 6.0 1 5.0-8.0 [facility] OGHPH3997-64-89 21:00:57* Test Item Value Reference Range Interpretation Comments UA Spec Grav (test code = UA Spec Grav) 1.020 1 [facility]annCARDIAC SXGBRNW7600-52-58 20:30:00<0.010[facility]annCARDIAC LRBMGMN9056-73-35 20:30:00<0.02[facility]annCARDIAC KBXUOMP1822-75-99 20:30:94612Laryumhe HermannCARDIAC JLUGZQH1350-96-44 20:30:00* Test Item Value Reference Range Interpretation Comments CK MB Index (test code = CK MB Index) 1.0 1 <=2.5 [facility]annCARDIAC QOVAUPI3749-45-48 20:30:002.5[facility]annCHEM PANEL 2018-05-03 20:00:000.4[facility] HermannCHEM WJIQX7815-07-04 20:00:0021[facility]annCHEM HDMVP5960-61-32 20:00:0027[facility]annCHEM GQDNF7509-91-24 20:00:0084[facility]annCHEM SKEDM6814-55-75 20:00:007.7[facility]annCHEM WZQYJ3034-11-07 20:00:004.2[facility]annCHEM GBJBS3099-71-91 20:00:0078 [facility]annCHEM QOVEB6446-78-41 20:00:00* Test Item Value Reference Range Interpretation Comments B/C Ratio (test code = B/C Ratio) 7 1 6-25 [facility]annCHEM UFBZB4168-99-79 20:00:003.3[facility]annCHEM PANEL 2018-05-03 20:00:26304Hccufuzp HermannCHEM QGMQL0745-89-56 20:00:0025[facility]annCHEM OQCCV0879-92-91 20:00:0015.3[facility]annCHEM EDCXS6338-95-35 20:00:009.5[facility]annCHEM JSVSP3243-26-34 20:00:001.09[facility]annCHEM PCKTK0720-54-65 20:00:01156Lrmffkfi HermannCHEM SRWGX5412-71-39 20:00:008 [facility]CHE[facility] SLENY7585-72-09 20:00:0099[facility]annCHEM PANEL 2018-05-03 20:00:00* Test Item Value Reference Range Interpretation Comments A/G Ratio (test code = A/G Ratio) 1.2 1 0.7-1.6 [facility]annCHE[facility] DAIHU9578-35-41 20:00:003.5[facility]annHEMATOLOGY 2018-05-03 20:00:00* Test Item Value Reference Range Interpretation Comments INR (test code = INR) 1.03 1 0.85-1.17 [facility] RhjfcbcSVHTVJYUVB2859-37-67 20:00:00* Test Item Value Reference Range Interpretation Comments PTT (test code = PTT) 31.1 s 22.9-35.8 [facility]vteglsWGAUKUUHIC3659-23-91 20:00:00* Test Item Value Reference Range Interpretation Comments PT (test code = PT) 13.5 s 12.0-14.7 [facility] WestVnhpxyxXSHZDUBQWM9552-08-12 20:00:000.1[facility] HermannIMMUNOLOGY 2018-05-03 20:00:00Negative *NA*(05/03/18 3:00 PM)[facility] QnbfgsmEKODEE0365-22-70 20:00:00See Note 2*NA*(05/03/18 3:00 PM)[facility] LtfhbvkUVXPDH9162-70-18 20:00:00 29[facility] GcsnellVFOYCB0200-40-97 20:00:00* Test Item Value Reference Range Interpretation Comments CHD Risk (test code = CHD Risk) 7.72 1 4.00-7.30 [facility] JyjjdshWOHNLR3380-56-68 20:00:55154Gkqzhryy FroexahWCKJIG9278-76-46 20:00:52672Qulewhks HermannSPECIAL XYWCJGPGJ1534-05-07 20:00:008.5[facility] HermannDRUG CLPRTE7924-87-55 19:12:00Positive *ABN*(05/03/18 2:12 PM)[facility]annDR[facility] MTBOFN0282-43-75 19:12:00Negative *NA*(05/03/18 2:12 PM)[facility]annDR[facility] PMGTAV5460-61-85 19:12:00Negative *NA*(05/03/18 2:12 PM)[facility]annDRUG FHRDBQ0146-28-00 19:12:00Positive *ABN*(05/03/18 2:12 PM)[facility]annDRUG VVTENG8540-46-10 19:12:00See Note (05/03/18 2:12 PM)[facility] ASYAUU1109-77-95 19:12:00Negative *NA*(05/03/18 2:12 PM)[facility]annDRUG EEFOWD1561-91-14 19:12:00Positive *ABN*(05/03/18 2:12 PM)[facility]annDRUG IQPIMK6158-75-81 19:12:00Negative *NA*(05/03/18 2:12 PM)[facility]annCARDIAC YSTUBTJ9528-23-36 16:01:45<0.02[facility]annCARDIAC PKQHRIQ9701-73-21 08:45:001.2[facility]annCARDIAC ARYSPUB8274-19-24 08:45:002.2[facility] CARDIAC WHKWKNR3167-69-34 08:45:00<0.02[facility]annCARDIAC IFOXWRR7811-48-47 08:45:48396Fpzcgvsk HermannCHEM UYZUO5028-07-62 08:45:0042[facility]annCHEM GGAXV8887-73-46 08:45:0098[facility]annCHEM DQJOO7402-64-05 08:45:000.6 [facility]annCHEM TLILZ9339-26-33 08:45:0097[facility]annCHEM PANEL 2016-02-15 08:45:0010[facility]annCHEM AQGZW2664-40-69 08:45:003.1[facility]annCHEM GBYMR1505-18-70 08:45:006.8[facility]annCHEM YISQA2308-83-79 08:45:003.7[facility]annCHEM AAXLH1927-10-45 08:45:001.2[facility]annCHEM KPFBE5033-21-47 08:45:0055[facility]annCHEM ZGSYQ1991-03-04 08:45:19695 [facility]annCHEM ZZYMO8803-36-24 08:45:009[facility]annCHEM PANEL 2016-02-15 08:45:000.92[facility]annCHEM NOPDZ5461-99-37 08:45:56408Jucazjde HermannCHEM IVQMU2286-11-04 08:45:004.1[facility]annCHEM SJKXN3495-07-21 08:45:0026[facility]annCHEM RGMGK6737-08-21 08:45:0099[facility]annCHEM UPDMD7779-53-46 08:45:0015.1[facility]annCHEM UDRVA8518-91-58 08:45:008.0 [facility] EvkshpdRAQCBEDKVF0351-11-77 08:45:000.2[facility] HermannHEMATOLOGY 2016-02-15 08:45:000.1[facility] XlyflppWTJIHIQCIU9947-49-28 08:45:004.5[facility] BmqswzjLGUJKDBFAT6751-55-20 08:45:001.4[facility] DwuxydwNJYYNRWKSO2958-23-17 08:45:002.3[facility] CixhhmrDNPNABUJFU6506-33-95 08:45:000.5[facility] CYJODPUBCX5895-43-67 08:45:0059.3[facility] AotknhcAAPZKMOVPF9288-41-81 08:45:00 2.8[facility] DkkjwuzEFORWWAMML4099-17-45 08:45:005.9[facility] HermannHEMATOLOGY 2016-02-15 08:45:0030.6[facility] JsgaaykUKMOSIGWEZ3555-75-19 08:45:00* Test Item Value Reference Range Interpretation Comments MCH (test code = MCH) 30.9 pg 27.0-31.0 [facility] GahzlsgUJLTSWDLPZ0314-31-17 08:45:0041.6[facility]annHEMATOLOGY 2016-02-15 08:45:0089.2[facility] DuvtopkMIGCRBZKMS1707-77-55 08:45:0014.4[facility] DkwhlwyGAWOSXIFXL6105-21-41 08:45:004.66[facility] FklhpcnCMQWLJMYGQ0247-13-38 08:45:007.7[facility] GtgnwfvJRTPNNUBGY9688-83-20 08:45:0013.6[facility] GXYQFZNHCX7779-75-91 08:45:50975Dojlduvs PqyqjojGBFNJRPSEY4630-99-59 08:45:00 10.1[facility] MpoxtokTMJTSJWKKE6461-20-97 08:45:0034.7[facility] HermannSPECIAL PBHOHHTEE2364-28-59 08:45:008.7[facility]annCARDIAC MTZJDUO7787-11-63 01:46:00<0.02[facility]annCARDIAC AQVSEYL7277-39-38 01:46:28232Aspcolml HermannCARDIAC UYGHAYW5564-66-64 01:46:001.1[facility]annCARDIAC ENZYMES 2016-02-15 01:46:002.3[facility]annDRUG SOKVVM1097-20-71 20:05:00See Note (02/14/16 3:05 PM)[facility]annDRUG XNZKPL1071-47-59 20:05:00Positive *ABN*(02/14/16 3:05 PM)[facility]annDRUG RYRNGO5568-21-22 20:05:00Negative *NA*(02/14/16 3:05 PM)[facility]annDR[facility] YBFTOE0488-16-70 20:05:00Negative *NA*(02/14/16 3:05 PM)[facility]annDRUG BQRFYT0846-69-03 20:05:00Positive *ABN*(02/14/16 3:05 PM)[facility]annDR[facility] LCAGVM0561-98-50 20:05:00Negative *NA*(02/14/16 3:05 PM)[facility]annDR[facility] KOJDOQ3975-47-04 20:05:00Negative *NA*(02/14/16 3:05 PM)[facility]annDR[facility] HIITIH7057-88-63 20:05:00Negative *NA*(02/14/16 3:05 PM)[facility] AND JBUCC3689-13-78 20:05:00Negative (02/14/16 3:05 PM)[facility] DDTQT6965-74-83 20:05:000.2[facility]UR[facility] AND PYIAS4235-34-57 20:05:00Negative *NA*(02/14/16 3:05 PM)[facility] AND FWFVS4754-22-25 20:05:00Negative *NA*(02/14/16 3:05 PM)[facility] AND YLPJP5904-93-17 20:05:00Clear (02/14/16 3:05 PM)[facility]INE AND BRDSF5984-68-60 20:05:00Yellow *NA*(02/14/16 3:05 PM)[facility] URINE AND WAHNV9013-73-65 20:05:00* Test Item Value Reference Range Interpretation Comments UA pH (test code = UA pH) 5.5 1 5.0-8.0 [facility] AND QFRLV1466-20-68 20:05:00Negative (02/14/16 3:05 PM) [facility] HDCBS1728-73-24 20:05:00>=1.030 *ABN*(02/14/16 3:05 PM) [facility] TDDYK2771-49-24 20:05:00Negative (02/14/16 3:05 PM) [facility] EIMOH6543-95-05 20:05:00Negative (02/14/16 3:05 PM) [facility] XPOUY4455-89-56 20:05:00Performed (02/14/16 3:05 PM) [facility]annCARDIAC LCZHWFR4415-75-13 19:28:55735Yfblkmyn HermannCARDIAC KAFQVKJ1809-86-73 19:28:003.3[facility]annCARDIAC NKSDVJG6054-97-86 19:28:00< 0.02[facility]annCARDIAC UYONOPD6849-36-09 19:28:001.1[facility] HermannCHEM GPEZZ8805-92-09 19:28:0073[facility]annCHEM KWRXR5707-70-33 19:28:003.5 [facility]annCHEM JVUAZ4311-84-92 19:28:001.1[facility]annCHEM PANEL 2016-02-14 19:28:007[facility] HermannCHEM RBIJL2884-02-46 19:28:000.2[facility] HermannCHEM GTMKQ8733-82-86 19:28:79114Eoqztoxp HermannCHEM RJWFH9823-49-22 19:28:0028[facility] HermannCHEM DTWEM3934-15-09 19:28:0051[facility]annCHEM WTWQN1049-16-13 19:28:003.7[facility] HermannCHEM IYYAU1651-87-89 19:28:0012.6 [facility]annCHEM WYHRH8841-89-10 19:28:008.2[facility] HermannCHEM PANEL 2016-02-14 19:28:0024[facility] HermannCHEM NTQJA0939-06-01 19:28:56618Bkufofin HermannCHEM JOTCC6761-23-42 19:28:003.6[facility] HermannCHEM QXNXN6135-33-21 19:28:007.2[facility] HermannCHEM BAQRA5300-90-11 19:28:48197Hnztuneg HermannCHEM HRJRD6982-58-34 19:28:001.18[facility] HermannCHEM KADRG2989-69-88 19:28:008 [facility]annCHEM ENYRB9935-90-10 19:28:65132Mejikgzs HermannHEMATOLOGY 2016-02-14 19:28:0034.5[facility] MfhjljxNIUMAKRPSU1447-25-96 19:28:0013.7[facility] ZixudfhFAMFVFTBSV3357-66-76 19:28:43233Frjyiiev EvkszfxFOVHXPBSVZ6974-16-00 19:28:0010.0[facility] XfujocmHHPNHMDDEJ4162-50-04 19:28:004.74[facility] CELVBGJEOF5523-48-66 19:28:0042.7[facility] FeikxwvGSBZMFLUAJ2344-49-78 19:28:00* Test Item Value Reference Range Interpretation Comments MCH (test code = MCH) 31.1 pg 27.0-31.0 [facility] QdsdtkqUACRZLXWXF1591-63-10 19:28:0014.7[facility] HermannHEMATOLOGY 2016-02-14 19:28:0090.1[facility] RnreutcBUSNPLWBYU0380-94-70 19:28:008.7[facility] AuodhptUYTNOQYDAX3633-97-50 19:28:000.90[facility] IdcrmfqNNBHDPNOOG1988-63-67 19:28:00* Test Item Value Reference Range Interpretation Comments PT (test code = PT) 12.4 s 12.0-14.7 [facility] BhdjlthYGVIACKBYE6474-67-91 19:28:00* Test Item Value Reference Range Interpretation Comments PTT (test code = PTT) 31.8 s 22.9-35.8 [facility] VjwrvjvPZOBFOBCZU1244-62-61 19:28:0067.7[facility] HermannHEMATOLOGY 2016-02-14 19:28:0023.2[facility] LllufdkHOLPBPCMST5131-41-27 19:28:006.4[facility] NcfukyaLLARDGVQHP5527-90-47 19:28:002.0[facility] ZiehshhHSLYQPZPBU8532-75-56 19:28:000.7[facility] HwfhohxDMLMSYMYZM9248-66-85 19:28:002.0[facility] JXBERGPMMT1613-28-74 19:28:000.2[facility] VtqlqluVHZUWGTJSU6274-13-17 19:28:005.9 [facility] VmsopjwBGRUSSJTXL3747-28-71 19:28:000.6[facility] HermannHEMATOLOGY 2016-02-14 19:28:000.1[facility] VjeyxusDAHHROVIAN6436-67-48 19:28:00Negative (02/14/16 2:28 PM)[facility] BdhxydgQHDBDV6324-03-70 19:28:0012.82[facility] QLGMQA4933-96-56 19:28:0022[facility] ToeikpyASHKSU9371-28-78 19:28:871026Zzjvirfs ZpbdhaiVEZCAO4288-98-71 19:28:27004Kojpbufv YvapwfjXJKPIY0184-43-36 19:28:00See Note 2*NA*(02/14/16 2:28 PM)[facility] PpegfpcFUIWZQYOYF5506-04-88 19:28:00<0.003 [facility] XggytktBEBLNCNMMO0426-96-07 19:28:00<3[facility] HermannC[facility] EN[facility]ES 2015-11-12 13:43:00<0.02[facility] EHCXMGL9021-93-67 12:05:00<0.02 [facility] QFKRIFB6723-01-18 12:05:002.4[facility] TIQQOKM3919-40-76 12:05:59537Wsgpjzov HermannCARDIAC ROOQAHC2674-15-63 12:05:00 1.3[facility]annCHEM DHXQA0710-18-04 12:05:0064[facility]annCHEM PANEL 2015-11-12 12:05:001.31[facility]annCHE[facility] RPFEV3108-46-80 12:05:008[facility]annCHE[facility] REEVP6511-84-06 12:05:85292Vaiodtlu HermannCHEM UUJJT3934-82-37 12:05:0011.8[facility]annCHE[facility] RTKCK0531-99-83 12:05:000.2[facility]annCHEM RPWIY2933-02-56 12:05:31808Aavrzvjr HermannCHEM CGVJD9842-59-80 12:05:007.5 [facility] HMWWH4409-97-10 12:05:008.4[facility]annCHEM PANEL 2015-11-12 12:05:0024[facility]annCHE[facility] QGTQP9560-68-40 12:05:12159Mjmtosvj HermannCHEM SBSES4905-04-53 12:05:003.8[facility]annCHE[facility] NGGJD0470-85-79 12:05:003.2[facility]annCHE[facility] PUVKV3618-54-72 12:05:001.3[facility]annCHE[facility] MCEYE3299-87-79 12:05:0018[facility]annCHE[facility] IDVXG2659-82-90 12:05:006[facility]annCHE[facility] XUXKQ4344-19-72 12:05:0037[facility]annCHE[facility] DPLVG2361-44-85 12:05:004.3[facility]annCHE[facility] UWBWJ6894-51-11 12:05:0073[facility]CHE[facility] CMIKB0336-98-18 12:05:52543Slaycxny EdjszqxNQGWTGJTWS1349-74-94 12:05:00* Test Item Value Reference Range Interpretation Comments PTT (test code = PTT) 31.9 s 22.9-35.8 [facility] HyweaqtNONZPXNFJZ5072-17-87 12:05:00* Test Item Value Reference Range Interpretation Comments PT (test code = PT) 12.1 s 12.0-14.7 [facility] DhuftmuINLFCKVDVU2562-38-06 12:05:000.87[facility]annHEMATOLOGY 2015-11-12 12:05:39951Klmcodcf KzkjabcJBKJHUTMDT6866-73-01 12:05:0010.2[facility] PwgrgxzPUILIJAHHZ2816-76-94 12:05:0033.6[facility] XxcfcixESETGNPLBW9470-22-37 12:05:00* Test Item Value Reference Range Interpretation Comments MCH (test code = MCH) 29.9 pg 27.0-31.0 [facility] VnrzxafXTBEPORVIT1731-13-55 12:05:0089.2[facility]annHEMATOLOGY 2015-11-12 12:05:0014.0[facility] FqvgztbNHFWSJOMAP3707-58-46 12:05:0044.5[facility] IonicziZJYZFVSJXX3529-37-64 12:05:0014.9[facility] BornvfcOCSOJEZALF6332-35-39 12:05:004.99[facility] CmlfckeVISPJKFWXP7880-16-49 12:05:0011.6[facility] STQGIIBBKN4212-63-28 12:05:006.2[facility] WzelvgeTUYZXTXEWZ2134-10-43 12:05:00 64.7[facility] EbsxzsxALKOYFEWLO2361-67-75 12:05:0026.1[facility]annHEMATOLOGY 2015-11-12 12:05:000.1[facility] DuwvgjxNFTOINDPGA0884-78-89 12:05:000.2[facility] OhxyzpnYHZTVPQIZG7687-62-43 12:05:000.7[facility] XurxxbmZYQOHWKAGA8205-99-26 12:05:003.0[facility] DsoupowTZKPYTOZMP3346-84-60 12:05:007.5[facility] KUKWBQDPUR8076-88-50 12:05:001.3[facility] XdqdbfvOLXMYXDMIQ0272-63-99 12:05:001.7 [facility] KglovwlAKCENDDXCI1017-50-28 12:05:00Negative (11/12/15 6:05 AM)[facility] HFAJQ2130-25-88 12:05:00None Seen (11/12/15 6:05 AM)[facility] ZMTEQ2251-14-53 12:05:00Performed (11/12/15 6:05 AM)[facility] OPSJJ8687-13-63 12:05:00Negative *NA*(11/12/15 6:05 AM)[facility] XGEOG3331-56-79 12:05:00Negative (11/12/15 6:05 AM)[facility] JKEDI0313-69-10 12:05:000.2[facility] STOOL 2015-11-12 12:05:00Negative (11/12/15 6:05 AM)[facility] STOOL 2015-11-12 12:05:00Negative (11/12/15 6:05 AM)[facility] STOOL 2015-11-12 12:05:00Negative *NA*(11/12/15 6:05 AM)[facility] STOOL 2015-11-12 12:05:00* Test Item Value Reference Range Interpretation Comments UA pH (test code = UA pH) 6.0 1 5.0-8.0 [facility] URXWD0870-91-49 12:05:00Negative (11/12/15 6:05 AM) [facility] YJAWR6915-45-71 12:05:00Yellow *NA*(11/12/15 6:05 AM) [facility] SITPF0028-16-79 12:05:00Clear (11/12/15 6:05 AM) [facility] HIKWI6558-82-69 12:05:00* Test Item Value Reference Range Interpretation Comments UA Spec Grav (test code = UA Spec Grav) 1.010 1 [facility]annCHEM XABYB5856-23-22 17:07:74820Bsbzevai HermannCHEM PANEL 2015-06-23 17:07:0071[facility]annCHEM FBZPD3720-34-19 17:07:000.3[facility]annCHEM CLDKZ5294-92-38 17:07:72182Fvgwziyt HermannCHEM CVWWB5399-81-31 17:07:0010[facility]annCHEM CHNYN8472-55-16 17:07:0025[facility]annCHEM YTPRE5922-82-77 17:07:0068[facility]annCHEM BBQSU9064-43-13 17:07:0049 [facility]annCHE[facility] HVSBS4534-27-11 17:07:003.8[facility]annCHEM PANEL 2015-06-23 17:07:63993Pdrzpeog HermannCHEM QMHGY5873-74-96 17:07:0024[facility]annCHEM VOPHS7482-99-91 17:07:008.2[facility]annCHEM ZGVJK4526-42-48 17:07:007.2[facility]annCHEM ZIRUU7425-55-49 17:07:001.2[facility]annCHEM BKYLE9182-75-98 17:07:50422Vuufbcie HermannCHEM PJWDR2460-32-13 17:07:003.7 [facility]annCHE[facility] PYERW7308-14-27 17:07:003.4[facility]annCHEM PANEL 2015-06-23 17:07:0011.7[facility]annCHEM ECKDC4108-22-77 17:07:008[facility]annCHEM WWDVT5272-40-41 17:07:001.1[facility] MavvxkiQCGNQHAMYU8103-13-02 17:07:005.4[facility] IhxnrhiFKYDCQDHYE8946-09-76 17:07:001.9[facility] USOOYFGBCF4251-71-83 17:07:000.2[facility] FaismozDLFQRWBITQ7947-05-96 17:07:000.2 [facility] RqlshjtUUQEECJGYZ5811-89-40 17:07:000.4[facility]annHEMATOLOGY 2015-06-23 17:07:000.0[facility] AaqbrboRWDPAYWBJS2318-27-78 17:07:0068.3[facility] HtwmhowDEUXWADAVQ7735-12-71 17:07:002.6[facility] PxamdnnKBQUIRBHRE6090-91-74 17:07:0023.7[facility] WrrohbjULLJFIFDME3068-75-24 17:07:005.2[facility] AGTPLZERID5186-39-39 17:07:0015.4[facility] TgnrwtsYHULMVWZCL0745-69-98 17:07:00 33.5[facility] BjsebpiNZZUGPURVS2039-30-35 17:07:009.6[facility]annHEMATOLOGY 2015-06-23 17:07:38943Fipaslhc QunsbkeSRBTTNBUMT1497-21-28 17:07:0040.9[facility] QdarfaaWKERDDSWFE2777-24-21 17:07:0087.9[facility] HsqexzmVUVQGFNCIF1340-85-64 17:07:00* Test Item Value Reference Range Interpretation Comments MCH (test code = MCH) 29.5 pg 27.0-31.0 [facility] AnufolfMWPETFBCYK9153-42-70 17:07:0013.7[facility]annHEMATOLOGY 2015-06-23 17:07:007.9[facility] TntqsduZBODIEHQJX5125-09-94 17:07:004.65[facility]annCARDIAC GOJKNDB1391-24-17 17:11:32663Fopmarvz HermannCARDIAC ENZYMES 2015-02-03 17:11:00<0.02[facility]annCARDIAC SGQVKUH9130-80-79 17:11:001.6 [facility]annC[facility]IAC WZKZTXT0047-34-90 17:11:001.5[facility]annCHEM PANEL 2015-02-03 17:11:0072[facility]annCHEM SCCYV3593-27-60 17:11:001.2[facility] NintrqwVDKGHVCMWW8869-58-12 17:11:52623Awyvkeki NvgsmghKICNKGQPEX4577-25-40 17:11:00* Test Item Value Reference Range Interpretation Comments PTT (test code = PTT) 34.7 s 22.9-35.8 [facility]ARD[facility] NOJAPOF6334-56-34 11:28:88711Tjqwwgkl HermannCARDIAC RVTZDKG9689-38-62 11:28:00<0.02[facility]annCARD[facility]AC ODUJAED6121-43-24 11:28:001.1[facility]annCARDIAC AOSLEYN4890-52-44 11:28:001.3[facility] CARDIAC YSZIUSM0368-22-79 04:00:49278Ecmnyreq HermannCARDIAC EYJIWTL5844-88-96 04:00:001.8[facility]annC[facility]AC HEAQPAC4643-91-55 04:00:00<0.02[facility]AC JWIVKQB0765-70-13 04:00:001.2[facility] HermannELECTROLYTES 2015-02-03 04:00:0013.0[facility] KvbspeiZACOMMNENEAK8749-34-69 04:00:007.3 [facility] LuawpoxWEKVYNBSARKF6021-41-25 04:00:003.9[facility] HermannELECTROLYTES 2015-02-03 04:00:008.1[facility] XkruskjOWQQASWUZYMM8524-88-69 04:00:009[facility] OyxyvpyZQTGSBHKKXAX8958-77-61 04:00:001.6[facility] XvcqtjwWKBIUKMWPIHW3552-50-79 04:00:57420Moekosqy NplhfmqDAHIDEUASVHK6558-73-85 04:00:39195Hckepjoe Kip ZNIMCCVKAPZT9074-81-14 04:00:004.0[facility] OapmuvdYDVBKGXQWNPY9506-09-51 04:00:003.4[facility] DrvsqqbGPDGVLPRJQGG6486-42-72 04:00:0090[facility] SMACATUXIAAU9250-99-85 04:00:001.1[facility] YpxdxhdXXFEEXRZSQKM5789-14-07 04:00:0019[facility] JfkupntOFKLOPWERPLA6545-01-27 04:00:000.3[facility] PZEVSERXJBSL6067-97-63 04:00:0025[facility] UkgpmzfWBWTKXTRQWML0518-85-02 04:00:00 14[facility] CgelmdwQPZNWEVJMUPP6467-85-81 04:00:18609Mvfljfim HermannELECTROLYTES 2015-02-03 04:00:0051[facility] EccdqweBUFFAMBDJIPD4226-21-52 04:00:0030[facility] DohgqwbDPPTTYPJHX6936-53-74 04:00:009.8[facility] WlqfbxkZWQQBFRPTE1385-39-68 04:00:0033.4[facility] FnjyuzuSXCEGLBVAS5476-02-81 04:00:00* Test Item Value Reference Range Interpretation Comments MCH (test code = MCH) 27.8 pg 27.0-31.0 [facility] HvzhoesDSWUZOQJTI2752-33-83 04:00:0015.7[facility]annHEMATOLOGY 2015-02-03 04:00:36376Wiudcohj ErrjtznDXQTNQJUNS2313-94-39 04:00:004.91[facility] GexhuhzZJVRKTSXYQ7233-38-64 04:00:009.8[facility] OvjyjjdUGPYIMNRFB0418-23-64 04:00:0013.6[facility] ZqwkuxaVFSNWGQSDB4593-40-41 04:00:0083.2[facility] NHTWLWHDBM1173-05-30 04:00:0040.9[facility] UdkfgvfEDPAHCEOUY9733-78-15 04:00:00 0.2[facility] ZpgmmftSHGWKBNZAZ7120-59-90 04:00:000.1[facility] HermannHEMATOLOGY 2015-02-03 04:00:0023.0[facility] LnqzyayFNWDVZKQGH2120-77-60 04:00:0069.0[facility] AsygecjIHBPHMIWCA8302-26-88 04:00:006.7[facility] JbjxsvuKGZBDJYNPX4709-85-03 04:00:000.9[facility] UdevelfCSBVYSXBIU0681-61-62 04:00:000.5[facility] QHMZHKVONO5450-31-97 04:00:002.3[facility] OqxpncbGXECKRFKVB4806-00-60 04:00:005.1 [facility] WklowvuEXFWMWNAJO8418-62-74 04:00:002.0[facility]annCARDIAC ENZYMES 2014-11-21 05:01:001.3[facility]annCARDIAC MUXDMIH4171-31-25 05:01:00<0.02 [facility]annCARDIAC MRUTUCY3089-30-20 05:01:001.8[facility]annCARDIAC JSGQSIE6429-02-49 05:01:59824Vutqynwy HermannCHEM LITPN6214-52-90 05:01:0080 [facility]annCHEM SRNTZ6896-79-50 05:01:0097[facility]annCHEM PANEL 2014-11-21 05:01:000.2[facility]annCHEM VUZSC0948-39-57 05:01:0023[facility]annCHEM EHSWQ6403-30-72 05:01:0014[facility]annCHEM YGQCS3579-79-06 05:01:003.8[facility]annCHEM DZLQB6528-81-00 05:01:38088Gehaeuev HermannCHEM NSVEL9339-98-24 05:01:61236Wulhkwxr HermannCHEM EBWXI4051-29-60 05:01:0024 [facility]annCHEM QQHGA5470-08-68 05:01:0011.8[facility]annCHEM PANEL 2014-11-21 05:01:007.8[facility] HermannCHEM RVIGR4907-90-91 05:01:0013[facility]annCHEM YHDMO6013-88-83 05:01:006.7[facility]annCHEM CSYVU6712-96-29 05:01:003.1[facility]annCHEM QCNRE0745-00-46 05:01:003.6[facility]annCHEM ELKPB0784-35-16 05:01:001.2[facility]annCHEM DALFC0023-36-69 05:01:001.1 [facility]annCHEM VDWFP8617-09-40 05:01:35478Cpvuzgxy HermannCHEM PANEL 2014-11-21 05:01:0014[facility] SexqnqdDCMWRYLKQE6274-40-70 05:01:006.9[facility] IbycsitTSHLYEGHDN6167-50-98 05:01:0029.9[facility] FwcwyztOKLZXSJXAO2074-18-82 05:01:000.2[facility] JrjkctlHSJGBAHSTD5851-49-43 05:01:000.1[facility] APZSHIDCPY5009-45-87 05:01:004.8[facility] NxdjehqZXRWIXXKHC4681-57-54 05:01:001.9 [facility] WutwnetLUSNRUWJRX0192-29-16 05:01:002.4[facility] HermannHEMATOLOGY 2014-11-21 05:01:000.9[facility] XxqdrqiTBINAEDOBF9699-45-19 05:01:000.5[facility] GqblqpoHATTBZELZE7992-98-10 05:01:0060.4[facility] FismtceYQYYVYXTGM1980-39-65 05:01:0038.8[facility] BifbdndBNRZYRYFDS2088-93-73 05:01:0083.1[facility] XPRAOSNUHP1217-95-86 05:01:004.67[facility] FewbodkLVMCLRBCYA6093-28-12 05:01:00 7.9[facility] JchcioqJFNXXWBODM4599-16-75 05:01:0013.1[facility] HermannHEMATOLOGY 2014-11-21 05:01:009.7[facility] HxlvesfDCCLBIKYOH1568-49-05 05:01:00* Test Item Value Reference Range Interpretation Comments MCH (test code = MCH) 28.1 pg 27.0-31.0 [facility] KhmosleOKKHEEEEEF6511-59-43 05:01:0014.5[facility] HermannHEMATOLOGY 2014-11-21 05:01:08830Enzcounv XqazsezCEXKKZQLQJ7609-90-54 05:01:0033.8Menerial Kip
--- NOTE | 2020-06-27 13:45 | NUR ---
[facility] NOTIFIED OF NEED FOR TRANSFER TO THE [facility] TO M 206, ONE HOUR
--- OUTSIDE RECORDS SUMMARY | 2020-06-27 13:52 | XMS REPORT | Clinical Summary ---
Author Author [facility] Organization [facility] Address Unknown Phone Unavailable Care Team Providers Care Bowling Or Skating Front Desk Clerk Name Role Phone Cindy Mackenzie MD PCP Allergies Comments Active Allergy Reactions Severity Noted Date Abdominal pain Acetaminophen-Codeine 02/26/2019 Medications End Date Status Medication Sig Dispensed Refills Start Date Active aspirin (ASPIRIN) 81 mg Chew and 90 tablet 3 chewable swallow 1 8 tabletIndications: tablet by [facility] mouth daily. Active omeprazole [...] topomax 100 bid per neur ology at [facility] 11/27/2017 aria Cervical disc herniation- per [...] substance abuse- cocaine and amphetamine p er [facility] 08/31/2017 records apr 2017 Hematochezia 08/31/2017 Smoking 08/31/2017 Coronary artery disease involving nativ e coronary artery of [place] heart without angina pectoris Type 2 diabetes [...] Effective Phone Address Plan / Dates Group [facility] [employer] xxxxxxx 2020-8 [address] [place], [place] [id number] [place] [address] FAMILY [facility] xxxxxxx 2020- [address] [employer]DIG[employer] FAMILY [id number] PLANNING [place] [phone] [facility] [employer] SELF-PAY xxxxxxxxx 2020- [phone] [address] [place] [address] Advance Directives Date Inactivated Comments Code Status Date Activated 07/14/2018 3:29 PM Full Code 07/13/2018 4:45 PM 07/13/2018 4:45 PM Full Code 07/10/2018 12:30 AM 01/11/2018 6:31 PM Full Code 01/08/2018 9:11 AM
--- OUTSIDE RECORDS SUMMARY | 2020-06-27 13:52 | XMS REPORT | Continuity of Care Document ---
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 URINE AND STOOL UA Color Yellow *NA* (05/03/18 4:00 PM) Yellow 05/03/2018 [facility] URINE AND STOOL UA pH 6.0 5.0 - 8.0 05/03/2018 [facility] URINE AND STOOL UA Spec Grav 1.020 <=1.030 05/03/2018 [facility] CARDIAC ENZYMES Troponin-T <0.010 0.000 - 0.100 05/03/2018 [facility] CARDIAC ENZYMES Troponin-I <0.02 0.00 - 0.40 05/03/2018 [facility] CARDIAC ENZYMES Total CK 260 12 - 191 05/03/2018 [facility] CARDIAC ENZYMES CK MB Index 1.0 0.0 - 2.5 05/03/2018 [facility] CARDIAC ENZYMES CK MB 2.5 0.5 - 3.6 05/03/2018 [facility] CHEM PANEL Bili Total 0.4 0.2 - 1.3 05/03/2018 [facility] CHEM PANEL AST 21 0 - 37 05/03/2018 [facility] CHEM PANEL ALT 27 0 - 65 05/03/2018 [facility] CHEM PANEL Alk Phos 84 39 - 136 05/03/2018 [facility] CHEM PANEL Total Protein 7.7 6.4 - 8.4 05/03/2018 [facility] CHEM PANEL Albumin Lvl 4.2 3.5 - 5.0 05/03/2018 [facility] CHEM PANEL eGFR 78 05/03/2018 [...] should be multiplied by the estimated BMI. [facility] CHEM PANEL B/C Ratio 7 6 - 25 05/03/2018 [facility] CHEM PANEL Potassium Lvl 3.3 3.5 - 5.1 05/03/2018 [facility] CHEM PANEL Sodium Lvl 136 135 - 145 05/03/2018 [facility] CHEM PANEL CO2 25 24 - 32 05/03/2018 [facility] CHEM PANEL AGAP 15.3 10.0 - 20.0 05/03/2018 [facility] CHEM PANEL Calcium Lvl 9.5 8.5 - 10.5 05/03/2018 [facility] CHEM PANEL Creatinine Lvl 1.09 0.50 - 1.40 05/03/2018 [facility] CHEM PANEL Glucose Lvl 176 70 - 99 05/03/2018 [facility] CHEM PANEL BUN 8 7 - 22 05/03/2018 [facility] CHEM PANEL Chloride Lvl 99 95 - 109 05/03/2018 [facility] CHEM PANEL A/G Ratio 1.2 0.7 - 1.6 05/03/2018 [facility] CHEM PANEL Globulin 3.5 2.7 - 4.2 05/03/2018 [facility] HEMATOLOGY INR 1.03 0.85 - 1.17 05/03/2018 [facility] HEMATOLOGY PTT 31.1 22.9 - 35.8 05/03/2018 [facility] HEMATOLOGY PT 13.5 12.0 - 14.7 05/03/2018 [facility] HEMATOLOGY Basophils # 0.1 0.0 - 0.2 05/03/2018 [facility] IMMUNOLOGY HIV Ag/Ab 4th Gen Negat stalin *NA* (05/03/18 3:00 PM) Negative 05/03/2018 [facility] LIPIDS VLDL See Note 2 *NA* (05/03/18 3:00 PM) 05/03/2018 Result Comment: VLDL - Lucia sterol level cannot be accurately calculated due to very high triglycerides (>400 mg/dL). [facility] LIPIDS LDL (Calculated) See Note mg/dL <=99 mg/dL 05/03/2018 Result Comment: LDL cholesterol cannot b e calculated due to very high triglycerides (>400 mg/dL). Recommend Direct LDL if clinically indicated. [facility] LIPIDS HDL 29 >=61 mg/dL 05/03/2018 [facility] LIPIDS CHD Risk 7.72 4.00 - 7.30 05/03/2018 [facility] LIPIDS Chol 224 <=199 mg/dL 05/03/2018 [facility] LIPIDS Trig 784 <=149 mg/dL 05/03/2018 [facility] SPECIAL CHEMISTRY Hgb A1C 8.5 <=5.6 % 05/03/2018 [facility] DRUG SCREEN U Cocaine Scr Posi tive *ABN* (05/03/18 2:12 PM) Negative 05/03/2018 [facility] DRUG SCREEN U Benzodia Scr Nega tive *NA* (05/03/18 2:12 PM) Negative 05/03/2018 [facility] DRUG SCREEN U Liv Scr Nega tive *NA* (05/03/18 2:12 PM) Negative 05/03/2018 [facility] DRUG SCREEN U Amph Scr Posi tive *ABN* (05/03/18 2:12 PM) Negative 05/03/2018 [facility] DRUG SCREEN UDS Note See Note (05/03/18 2:12 PM) 05/03/2018 [facility] DRUG SCREEN U Phencyc Scr Nega tive *NA* (05/03/18 2:12 PM) Negative 05/03/2018 [facility] DRUG SCREEN U Opiate Scr Posi tive *ABN* (05/03/18 2:12 PM) Negative 05/03/2018 [facility] DRUG SCREEN U Cannab Scr Nega tive *NA* (05/03/18 2:12 PM) Negative 05/03/2018 [facility] CARDIAC ENZYMES Troponin-I <0.02 0.00 - 0.40 05/03/2018 [facility] CARDIAC ENZYMES CK MB Index 1.2 0.0 - 2.5 02/15/2016 [facility] CARDIAC ENZYMES CK MB 2.2 0.5 - 3.6 02/15/2016 [facility] CARDIAC ENZYMES Troponin-I <0.02 0.00 - 0.40 02/15/2016 [facility] CARDIAC ENZYMES Total CK 183 12 - 191 02/15/2016 [facility] CHEM PANEL ASPARTATE TRANSAMINASE 42 0 - 37 02/15/2016 [facility] CHEM PANEL Alk Phos 98 39 - 136 02/15/2016 [facility] CHEM PANEL Bili Total 0.6 0.2 - 1.3 02/15/2016 [facility] CHEM PANEL eGFR 97 02/15/2016 Result Comment: [...] should be multiplied by the estimated BMI. [facility] CHEM PANEL B/C Ratio 10 6 - 25 02/15/2016 [facility] CHEM PANEL Globulin 3.1 2.0 - 4.0 02/15/2016 [facility] CHEM PANEL Total Protein 6.8 6.4 - 8.4 02/15/2016 [facility] CHEM PANEL Albumin Lvl 3.7 3.5 - 5.0 02/15/2016 [facility] CHEM PANEL A/G Ratio 1.2 0.7 - 1.6 02/15/2016 [facility] CHEM PANEL ALT 55 0 - 65 02/15/2016 [facility] CHEM PANEL Glucose Lvl 227 70 - 99 02/15/2016 [facility] CHEM PANEL BUN 9 7 - 22 02/15/2016 [facility] CHEM PANEL Creatinine Lvl 0.92 0.50 - 1.40 02/15/2016 [facility] CHEM PANEL Sodium Lvl 136 135 - 145 02/15/2016 [facility] CHEM PANEL Potassium Lvl 4.1 3.5 - 5.1 02/15/2016 [facility] CHEM PANEL CO2 26 24 - 32 02/15/2016 [facility] CHEM PANEL Chloride Lvl 99 95 - 109 02/15/2016 [facility] CHEM PANEL AGAP 15.1 10.0 - 20.0 02/15/2016 [facility] CHEM PANEL Calcium Lvl 8.0 8.5 - 10.5 02/15/2016 [facility] HEMATOLOGY Eosinophils # 0.2 0.0 - 0.5 02/15/2016 [facility] HEMATOLOGY Basophils # 0.1 0.0 - 0.2 02/15/2016 [facility] HEMATOLOGY Segs-Bands # 4.5 1.5 - 8.1 02/15/2016 [facility] HEMATOLOGY Basophils 1.4 0.0 - 1.0 02/15/2016 [facility] HEMATOLOGY Lymphocytes # 2.3 1.0 - 5.5 02/15/2016 [facility] HEMATOLOGY Monocytes # 0.5 0.0 - 0.8 02/15/2016 [facility] HEMATOLOGY Segs 59.3 45.0 - 75.0 02/15/2016 [facility] HEMATOLOGY Eosinophils 2.8 0.0 - 4.0 02/15/2016 [facility] HEMATOLOGY Monocytes 5.9 2.0 - 12.0 02/15/2016 [facility] HEMATOLOGY Lymphocytes 30.6 20.0 - 40.0 02/15/2016 [facility] HEMATOLOGY MCH 30.9 27.0 - 31.0 02/15/2016 [facility] HEMATOLOGY Hct 41.6 42.0 - 54.0 02/15/2016 [facility] HEMATOLOGY MCV 89.2 80.0 - 94.0 02/15/2016 [facility] HEMATOLOGY Hgb 14.4 14.0 - 18.0 02/15/2016 [facility] HEMATOLOGY RBC 4.66 4.70 - 6.10 02/15/2016 [facility] HEMATOLOGY WBC 7.7 3.7 - 10.4 02/15/2016 [facility] HEMATOLOGY RDW 13.6 11.5 - 14.5 02/15/2016 [facility] HEMATOLOGY Platelet 254 133 - 450 02/15/2016 [facility] HEMATOLOGY MPV 10.1 7.4 - 10.4 02/15/2016 [facility] HEMATOLOGY MCHC 34.7 32.0 - 36.0 02/15/2016 [facility] SPECIAL CHEMISTRY Hgb A1C 8.7 <=5.6 % 02/15/2016 [facility] CARDIAC ENZYMES Troponin-I <0.02 0.00 - 0.40 02/15/2016 [facility] CARDIAC ENZYMES Total CK 216 12 - 191 02/15/2016 [facility] CARDIAC ENZYMES CK MB Index 1.1 0.0 - 2.5 02/15/2016 [facility] CARDIAC ENZYMES CK MB 2.3 0.5 - 3.6 02/15/2016 [facility] DRUG SCREEN UDS Note See Note (02/14/16 3:05 PM) 02/14/2016 [facility] DRUG SCREEN U Opiate Scr Posi tive *ABN* (02/14/16 3:05 PM) Negative 02/14/2016 [facility] DRUG SCREEN U Phencyc Scr Nega tive *NA* (02/14/16 3:05 PM) Negative 02/14/2016 [facility] DRUG SCREEN U Cannab Scr Nega tive *NA* (02/14/16 3:05 PM) Negative 02/14/2016 [facility] DRUG SCREEN U Cocaine Scr Posi tive *ABN* (02/14/16 3:05 PM) Negative 02/14/2016 [facility] DRUG SCREEN U Benzodia Scr Nega tive *NA* (02/14/16 3:05 PM) Negative 02/14/2016 [facility] DRUG SCREEN U Amph Scr Nega tive *NA* (02/14/16 3:05 PM) Negative 02/14/2016 [facility] DRUG SCREEN U Liv Scr Nega tive *NA* (02/14/16 3:05 PM) Negative 02/14/2016 [facility] URINE AND STOOL UA Blood Negative (02/14/16 3:05 PM) Negative 02/14/2016 [facility] URINE AND STOOL UA Urobilinogen 0.2 0.1 - 1.0 02/14/2016 [facility] URINE AND STOOL UA Ketones Negative *NA* (02/14/16 3:05 PM) Negative 02/14/2016 [facility] URINE AND STOOL UA Bili Negative *NA* (02/14/16 3:05 PM) Negative 02/14/2016 [facility] URINE AND STOOL UA Turbidity Clear (02/14/16 3:05 PM) Clear 02/14/2016 [facility] URINE AND STOOL UA Color Yellow *NA* (02/14/16 3:05 PM) Yellow 02/14/2016 [facility] URINE AND STOOL UA pH 5.5 5.0 - 8.0 02/14/2016 [facility] URINE AND STOOL UA Protein Negative (02/14/16 3:05 PM) Negative 02/14/2016 [facility] URINE AND STOOL UA Spec Grav >=1.030 *ABN* (02/14/16 3:05 PM) <=1.030 02/14/2016 [facility] URINE AND STOOL UA Glucose >=1000 mg/dL Negative mg/dL 02/14/2016 [facility] URINE AND STOOL UA Mucus Rare /LPF None Seen /LPF 02/14/2016 [facility] URINE AND STOOL UA RBC 0-2 /HPF 0 - 2 02/14/2016 [facility] URINE AND STOOL UA Bacteria Occasional /HPF None Seen /HPF 02/14/2016 [facility] URINE AND STOOL UA Nitrite Negative (02/14/16 3:05 PM) Negative 02/14/2016 [facility] URINE AND STOOL UA Sq Epi Rare /LPF Few /LPF 02/14/2016 [facility] URINE AND STOOL UA Leuk Est Negative (02/14/16 3:05 PM) Negative 02/14/2016 [facility] URINE AND STOOL Micro? Performed (02/14/16 3:05 PM) 02/14/2016 [facility] URINE AND STOOL UA WBC 0-2 /HPF None Seen /HPF 02/14/2016 [facility] CARDIAC ENZYMES Total CK 302 12 - 191 02/14/2016 [facility] CARDIAC ENZYMES CK MB 3.3 0.5 - 3.6 02/14/2016 [facility] CARDIAC ENZYMES Troponin-I <0.02 0.00 - 0.40 02/14/2016 [facility] CARDIAC ENZYMES CK MB Index 1.1 0.0 - 2.5 02/14/2016 [facility] CHEM PANEL eGFR 73 02/14/2016 Result Comment: [...] should be multiplied by the estimated BMI. [facility] CHEM PANEL Globulin 3.5 2.0 - 4.0 02/14/2016 [facility] CHEM PANEL A/G Ratio 1.1 0.7 - 1.6 02/14/2016 [facility] CHEM PANEL B/C Ratio 7 6 - 25 02/14/2016 [facility] CHEM PANEL Bili Total 0.2 0.2 - 1.3 02/14/2016 [facility] CHEM PANEL Alk Phos 101 39 - 136 02/14/2016 [facility] CHEM PANEL AST 28 0 - 37 02/14/2016 [facility] CHEM PANEL ALT 51 0 - 65 02/14/2016 [facility] CHEM PANEL Albumin Lvl 3.7 3.5 - 5.0 02/14/2016 [facility] CHEM PANEL AGAP 12.6 10.0 - 20.0 02/14/2016 [facility] CHEM PANEL Calcium Lvl 8.2 8.5 - 10.5 02/14/2016 [facility] CHEM PANEL CO2 24 24 - 32 02/14/2016 [facility] CHEM PANEL Chloride Lvl 101 95 - 109 02/14/2016 [facility] CHEM PANEL Potassium Lvl 3.6 3.5 - 5.1 02/14/2016 [facility] CHEM PANEL Total Protein 7.2 6.4 - 8.4 02/14/2016 [facility] CHEM PANEL Sodium Lvl 134 135 - 145 02/14/2016 [facility] CHEM PANEL Creatinine Lvl 1.18 0.50 - 1.40 02/14/2016 [facility] CHEM PANEL BUN 8 7 - 22 02/14/2016 [facility] CHEM PANEL Glucose Lvl 271 70 - 99 02/14/2016 [facility] HEMATOLOGY MCHC 34.5 32.0 - 36.0 02/14/2016 [facility] HEMATOLOGY RDW 13.7 11.5 - 14.5 02/14/2016 [facility] HEMATOLOGY Platelet 299 133 - 450 02/14/2016 [facility] HEMATOLOGY MPV 10.0 7.4 - 10.4 02/14/2016 [facility] HEMATOLOGY RBC 4.74 4.70 - 6.10 02/14/2016 [facility] HEMATOLOGY Hct 42.7 42.0 - 54.0 02/14/2016 [facility] HEMATOLOGY MCH 31.1 27.0 - 31.0 02/14/2016 [facility] HEMATOLOGY Hgb 14.7 14.0 - 18.0 02/14/2016 [facility] HEMATOLOGY MCV 90.1 80.0 - 94.0 02/14/2016 [facility] HEMATOLOGY WBC 8.7 3.7 - 10.4 02/14/2016 [facility] HEMATOLOGY INR 0.90 0.85 - 1.17 02/14/2016 [facility] HEMATOLOGY PT 12.4 12.0 - 14.7 02/14/2016 [facility] HEMATOLOGY PTT 31.8 22.9 - 35.8 02/14/2016 [facility] HEMATOLOGY Segs 67.7 45.0 - 75.0 02/14/2016 [facility] HEMATOLOGY Lymphocytes 23.2 20.0 - 40.0 02/14/2016 [facility] HEMATOLOGY Monocytes 6.4 2.0 - 12.0 02/14/2016 [facility] HEMATOLOGY Eosinophils 2.0 0.0 - 4.0 02/14/2016 [facility] HEMATOLOGY Basophils 0.7 0.0 - 1.0 02/14/2016 [facility] HEMATOLOGY Lymphocytes # 2.0 1.0 - 5.5 02/14/2016 [facility] HEMATOLOGY Eosinophils # 0.2 0.0 - 0.5 02/14/2016 [facility] HEMATOLOGY Segs-Bands # 5.9 1.5 - 8.1 02/14/2016 [facility] HEMATOLOGY Monocytes # 0.6 0.0 - 0.8 02/14/2016 [facility] HEMATOLOGY Basophils # 0.1 0.0 - 0.2 02/14/2016 [facility] IMMUNOLOGY CDC HIV 4th GEN Negat stalin (02/14/16 2:28 PM) Negative 02/14/2016 [facility] LIPIDS CHD Risk 12.82 4.00 - 7.30 02/14/2016 [facility] LIPIDS HDL 22 >=61 mg/dL 02/14/2016 [facility] LIPIDS Trig 1846 <=149 mg/dL 02/14/2016 [facility] LIPIDS Chol 282 <=199 mg/dL 02/14/2016 [facility] LIPIDS VLDL See Note 2 *NA* (02/14/16 2:28 PM) 02/14/2016 Result Comment: VLDL - Cholesterol level cannot be accurately calculated due to very high triglycerides (>400 mg/dL). [facility] LIPIDS LDL (Calculated) See Note mg/dL <=99 mg/dL 02/14/2016 Result Comment: LDL cholesterol cannot b e calculated due to very high triglycerides (>400 mg/dL). Recommend Direct LDL if clinically indicated. [facility] TOXICOLOGY Etoh (%) <0.003 02/14/2016 [facility] TOXICOLOGY Ethanol Lvl <3 02/14/2016 [facility] CARDIAC ENZYMES Troponin-I <0.02 0.00 - 0.40 11/12/2015 [facility] CARDIAC ENZYMES Troponin-I <0.02 0.00 - 0.40 11/12/2015 [facility] CARDIAC ENZYMES CK MB 2.4 0.5 - 3.6 11/12/2015 [facility] CARDIAC ENZYMES Total CK 179 12 - 191 11/12/2015 [facility] CARDIAC ENZYMES CK MB Index 1.3 0.0 - 2.5 11/12/2015 [facility] CHEM PANEL eGFR 64 11/12/2015 Result Comment: [...] should be multiplied by the estimated BMI. [facility] CHEM PANEL Creatinine Lvl 1.31 0.50 - 1.40 11/12/2015 [facility] CHEM PANEL BUN 8 7 - 22 11/12/2015 [facility] CHEM PANEL Glucose Lvl 210 70 - 99 11/12/2015 [facility] CHEM PANEL AGAP 11.8 10.0 - 20.0 11/12/2015 [facility] CHEM PANEL Bili Total 0.2 0.2 - 1.3 11/12/2015 [facility] CHEM PANEL Sodium Lvl 134 135 - 145 11/12/2015 [facility] CHEM PANEL Total Protein 7.5 6.4 - 8.4 11/12/2015 [facility] CHEM PANEL Calcium Lvl 8.4 8.5 - 10.5 11/12/2015 [facility] CHEM PANEL CO2 24 24 - 32 11/12/2015 [facility] CHEM PANEL Chloride Lvl 102 95 - 109 11/12/2015 [facility] CHEM PANEL Potassium Lvl 3.8 3.5 - 5.1 11/12/2015 [facility] CHEM PANEL Globulin 3.2 2.0 - 4.0 11/12/2015 [facility] CHEM PANEL A/G Ratio 1.3 0.7 - 1.6 11/12/2015 [facility] CHEM PANEL AST 18 0 - 37 11/12/2015 [facility] CHEM PANEL B/C Ratio 6 6 - 25 11/12/2015 [facility] CHEM PANEL ALT 37 0 - 65 11/12/2015 [facility] CHEM PANEL Albumin Lvl 4.3 3.5 - 5.0 11/12/2015 [facility] CHEM PANEL Alk Phos 73 39 - 136 11/12/2015 [facility] CHEM PANEL Lipase Lvl 171 73 - 393 11/12/2015 [facility] HEMATOLOGY PTT 31.9 22.9 - 35.8 11/12/2015 [facility] HEMATOLOGY PT 12.1 12.0 - 14.7 11/12/2015 [facility] HEMATOLOGY INR 0.87 0.85 - 1.17 11/12/2015 [facility] HEMATOLOGY Platelet 278 133 - 450 11/12/2015 [facility] HEMATOLOGY MPV 10.2 7.4 - 10.4 11/12/2015 [facility] HEMATOLOGY MCHC 33.6 32.0 - 36.0 11/12/2015 [facility] HEMATOLOGY MCH 29.9 27.0 - 31.0 11/12/2015 [facility] HEMATOLOGY MCV 89.2 80.0 - 94.0 11/12/2015 [facility] HEMATOLOGY RDW 14.0 11.5 - 14.5 11/12/2015 [facility] HEMATOLOGY Hct 44.5 42.0 - 54.0 11/12/2015 [facility] HEMATOLOGY Hgb 14.9 14.0 - 18.0 11/12/2015 [facility] HEMATOLOGY RBC 4.99 4.70 - 6.10 11/12/2015 [facility] HEMATOLOGY WBC 11.6 3.7 - 10.4 11/12/2015 [facility] HEMATOLOGY Monocytes 6.2 2.0 - 12.0 11/12/2015 [facility] HEMATOLOGY Segs 64.7 45.0 - 75.0 11/12/2015 [facility] HEMATOLOGY Lymphocytes 26.1 20.0 - 40.0 11/12/2015 [facility] HEMATOLOGY Basophils # 0.1 0.0 - 0.2 11/12/2015 [facility] HEMATOLOGY Eosinophils # 0.2 0.0 - 0.5 11/12/2015 [facility] HEMATOLOGY Monocytes # 0.7 0.0 - 0.8 11/12/2015 [facility] HEMATOLOGY Lymphocytes # 3.0 1.0 - 5.5 11/12/2015 [facility] HEMATOLOGY Segs-Bands # 7.5 1.5 - 8.1 11/12/2015 [facility] HEMATOLOGY Basophils 1.3 0.0 - 1.0 11/12/2015 [facility] HEMATOLOGY Eosinophils 1.7 0.0 - 4.0 11/12/2015 [facility] IMMUNOLOGY CDC HIV 4th GEN Negat stalin (11/12/15 6:05 AM) Negative 11/12/2015 [facility] URINE AND STOOL UA Mucus Rare /LPF None Seen /LPF 11/12/2015 [facility] URINE AND STOOL UA RBC 0-2 /HPF 0 - 2 11/12/2015 [facility] URINE AND STOOL UA Bacteria None Seen (11/12/15 6:05 AM) None Seen 11/12/2015 [facility] URINE AND STOOL Micro? Performed (11/12/15 6:05 AM) 11/12/2015 [facility] URINE AND STOOL UA WBC 0-2 /HPF None Seen /HPF 11/12/2015 [facility] URINE AND STOOL UA Sq Epi Rare /LPF Few /LPF 11/12/2015 [facility] URINE AND STOOL UA Bili Negative *NA* (11/12/15 6:05 AM) Negative 11/12/2015 [facility] URINE AND STOOL UA Blood Negative (11/12/15 6:05 AM) Negative 11/12/2015 [facility] URINE AND STOOL UA Urobilinogen 0.2 0.1 - 1.0 11/12/2015 [facility] URINE AND STOOL UA Nitrite Negative (11/12/15 6:05 AM) Negative 11/12/2015 [facility] URINE AND STOOL UA Leuk Est Negative (11/12/15 6:05 AM) Negative 11/12/2015 [facility] URINE AND STOOL UA Ketones Negative *NA* (11/12/15 6:05 AM) Negative 11/12/2015 [facility] URINE AND STOOL UA pH 6.0 5.0 - 8.0 11/12/2015 [facility] URINE AND STOOL UA Protein Negative (11/12/15 6:05 AM) Negative 11/12/2015 [facility] URINE AND STOOL UA Glucose 250 mg/dL Negative mg/dL 11/12/2015 [facility] URINE AND STOOL UA Color Yellow *NA* (11/12/15 6:05 AM) Yellow 11/12/2015 [facility] URINE AND STOOL UA Turbidity Clear (11/12/15 6:05 AM) Clear 11/12/2015 [facility] URINE AND STOOL UA Spec Grav 1.010 <=1.030 11/12/2015 [facility] CHEM PANEL Lipase Lvl 157 73 - 393 06/23/2015 [facility] CHEM PANEL eGFR 71 06/23/2015 Result Comment: [...] should be multiplied by the estimated BMI. [facility] CHEM PANEL Bili Total 0.3 0.2 - 1.3 06/23/2015 [facility] CHEM PANEL Glucose Lvl 113 70 - 99 06/23/2015 [facility] CHEM PANEL BUN 10 7 - 22 06/23/2015 [facility] CHEM PANEL AST 25 0 - 37 06/23/2015 [facility] CHEM PANEL Alk Phos 68 39 - 136 06/23/2015 [facility] CHEM PANEL ALT 49 0 - 65 06/23/2015 [facility] CHEM PANEL Albumin Lvl 3.8 3.5 - 5.0 06/23/2015 [facility] CHEM PANEL Chloride Lvl 106 95 - 109 06/23/2015 [facility] CHEM PANEL CO2 24 24 - 32 06/23/2015 [facility] CHEM PANEL Calcium Lvl 8.2 8.5 - 10.5 06/23/2015 [facility] CHEM PANEL Total Protein 7.2 6.4 - 8.4 06/23/2015 [facility] CHEM PANEL Creatinine Lvl 1.2 0.5 - 1.4 06/23/2015 [facility] CHEM PANEL Sodium Lvl 138 135 - 145 06/23/2015 [facility] CHEM PANEL Potassium Lvl 3.7 3.5 - 5.1 06/23/2015 [facility] CHEM PANEL Globulin 3.4 2.0 - 4.0 06/23/2015 [facility] CHEM PANEL AGAP 11.7 10.0 - 20.0 06/23/2015 [facility] CHEM PANEL B/C Ratio 8 6 - 25 06/23/2015 [facility] CHEM PANEL A/G Ratio 1.1 0.7 - 1.6 06/23/2015 [facility] HEMATOLOGY Segs-Bands # 5.4 1.5 - 8.1 06/23/2015 [facility] HEMATOLOGY Lymphocytes # 1.9 1.0 - 5.5 06/23/2015 [facility] HEMATOLOGY Basophils 0.2 0.0 - 1.0 06/23/2015 [facility] HEMATOLOGY Eosinophils # 0.2 0.0 - 0.5 06/23/2015 [facility] HEMATOLOGY Monocytes # 0.4 0.0 - 0.8 06/23/2015 [facility] HEMATOLOGY Basophils # 0.0 0.0 - 0.2 06/23/2015 [facility] HEMATOLOGY Segs 68.3 45.0 - 75.0 06/23/2015 [facility] HEMATOLOGY Eosinophils 2.6 0.0 - 4.0 06/23/2015 [facility] HEMATOLOGY Lymphocytes 23.7 20.0 - 40.0 06/23/2015 [facility] HEMATOLOGY Monocytes 5.2 2.0 - 12.0 06/23/2015 [facility] HEMATOLOGY RDW 15.4 11.5 - 14.5 06/23/2015 [facility] HEMATOLOGY MCHC 33.5 32.0 - 36.0 06/23/2015 [facility] HEMATOLOGY MPV 9.6 7.4 - 10.4 06/23/2015 [facility] HEMATOLOGY Platelet 256 133 - 450 06/23/2015 [facility] HEMATOLOGY Hct 40.9 42.0 - 54.0 06/23/2015 [facility] HEMATOLOGY MCV 87.9 80.0 - 94.0 06/23/2015 [facility] HEMATOLOGY MCH 29.5 27.0 - 31.0 06/23/2015 [facility] HEMATOLOGY Hgb 13.7 14.0 - 18.0 06/23/2015 [facility] HEMATOLOGY WBC 7.9 3.7 - 10.4 06/23/2015 [facility] HEMATOLOGY RBC 4.65 4.70 - 6.10 06/23/2015 [facility] CARDIAC ENZYMES Total CK 110 12 - 191 02/03/2015 [facility] CARDIAC ENZYMES Troponin-I <0.02 0.00 - 0.40 02/03/2015 [facility] CARDIAC ENZYMES CK MB 1.6 0.5 - 3.6 02/03/2015 [facility] CARDIAC ENZYMES CK MB Index 1.5 0.0 - 2.5 02/03/2015 [facility] CHEM PANEL eGFR 72 02/03/2015 <sup>1</sup>Result Comment: [...] be multiplied by the estimated BMI. [facility] CHEM PANEL Creatinine Lvl 1.2 0.5 - 1.4 02/03/2015 [facility] HEMATOLOGY Platelet 215 133 - 450 02/03/2015 [facility] HEMATOLOGY PTT 34.7 22.9 - 35.8 02/03/2015 <sup>4</sup>Interpretive Data: Heparin T herapeutic Range: 57 - 92 Seconds [facility] CARDIAC ENZYMES Total CK 114 12 - 191 02/03/2015 [facility] CARDIAC ENZYMES Troponin-I <0.02 0.00 - 0.40 02/03/2015 [facility] CARDIAC ENZYMES CK MB Index 1.1 0.0 - 2.5 02/03/2015 [facility] CARDIAC ENZYMES CK MB 1.3 0.5 - 3.6 02/03/2015 [facility] CARDIAC ENZYMES Total CK 146 12 - 191 02/03/2015 [facility] CARDIAC ENZYMES CK MB 1.8 0.5 - 3.6 02/03/2015 [facility] CARDIAC ENZYMES Troponin-I <0.02 0.00 - 0.40 02/03/2015 [facility] CARDIAC ENZYMES CK MB Index 1.2 0.0 - 2.5 02/03/2015 [facility] ELECTROLYTES AGAP 13.0 10.0 - 20.0 02/03/2015 [facility] ELECTROLYTES Total Protein 7.3 6.4 - 8.4 02/03/2015 [facility] ELECTROLYTES Albumin Lvl 3.9 3.5 - 5.0 02/03/2015 [facility] ELECTROLYTES Calcium Lvl 8.1 8.5 - 10.5 02/03/2015 [facility] ELECTROLYTES B/C Ratio 9 6 - 25 02/03/2015 [facility] ELECTROLYTES Creatinine Lvl 1.6 0.5 - 1.4 02/03/2015 [facility] ELECTROLYTES Chloride Lvl 103 95 - 109 02/03/2015 [facility] ELECTROLYTES Sodium Lvl 137 135 - 145 02/03/2015 [facility] ELECTROLYTES Potassium Lvl 4.0 3.5 - 5.1 02/03/2015 [facility] ELECTROLYTES Globulin 3.4 2.0 - 4.0 02/03/2015 [facility] ELECTROLYTES Alk Phos 90 39 - 136 02/03/2015 [facility] ELECTROLYTES A/G Ratio 1.1 0.7 - 1.6 02/03/2015 [facility] ELECTROLYTES AST 19 0 - 37 02/03/2015 [facility] ELECTROLYTES Bili Total 0.3 0.2 - 1.3 02/03/2015 [facility] ELECTROLYTES CO2 25 24 - 32 02/03/2015 [facility] ELECTROLYTES BUN 14 7 - 22 02/03/2015 [facility] ELECTROLYTES Glucose Lvl 163 70 - 99 02/03/2015 <sup>3</sup>Interpretive Data: Adult ref erence range values reflect the clinical guidelines
of the [place] [employer]. [facility] ELECTROLYTES eGFR 51 02/03/2015 <sup>2</sup>Result Comment: The [...] should be multiplied by the estimated BMI. [facility] ELECTROLYTES ALANINE AMINOTRANSFERAS E 30 0 - 65 02/03/2015 [facility] HEMATOLOGY MPV 9.8 7.4 - 10.4 02/03/2015 [facility] HEMATOLOGY MCHC 33.4 32.0 - 36.0 02/03/2015 [facility] HEMATOLOGY MCH 27.8 27.0 - 31.0 02/03/2015 [facility] HEMATOLOGY RDW 15.7 11.5 - 14.5 02/03/2015 [facility] HEMATOLOGY Platelet 265 133 - 450 02/03/2015 [facility] HEMATOLOGY RBC 4.91 4.70 - 6.10 02/03/2015 [facility] HEMATOLOGY WBC 9.8 3.7 - 10.4 02/03/2015 [facility] HEMATOLOGY Hgb 13.6 14.0 - 18.0 02/03/2015 [facility] HEMATOLOGY MCV 83.2 80.0 - 94.0 02/03/2015 [facility] HEMATOLOGY Hct 40.9 42.0 - 54.0 02/03/2015 [facility] HEMATOLOGY Eosinophils # 0.2 0.0 - 0.5 02/03/2015 [facility] HEMATOLOGY Basophils # 0.1 0.0 - 0.2 02/03/2015 [facility] HEMATOLOGY Lymphocytes 23.0 20.0 - 40.0 02/03/2015 [facility] HEMATOLOGY Segs 69.0 45.0 - 75.0 02/03/2015 [facility] HEMATOLOGY Segs-Bands # 6.7 1.5 - 8.1 02/03/2015 [facility] HEMATOLOGY Basophils 0.9 0.0 - 1.0 02/03/2015 [facility] HEMATOLOGY Monocytes # 0.5 0.0 - 0.8 02/03/2015 [facility] HEMATOLOGY Lymphocytes # 2.3 1.0 - 5.5 02/03/2015 [facility] HEMATOLOGY Monocytes 5.1 2.0 - 12.0 02/03/2015 [facility] HEMATOLOGY Eosinophils 2.0 0.0 - 4.0 02/03/2015 [facility] CARDIAC ENZYMES CK MB Index 1.3 0.0 - 2.5 11/21/2014 [facility] CARDIAC ENZYMES Troponin-I <0.02 0.00 - 0.40 11/21/2014 [facility] CARDIAC ENZYMES CK MB 1.8 0.5 - 3.6 11/21/2014 [facility] CARDIAC ENZYMES Total CK 141 12 - 191 11/21/2014 [facility] CHEM PANEL eGFR 80 11/21/2014 <sup>1</sup>Result [...] should be multiplied by the estimated BMI. [facility] CHEM PANEL Alk Phos 97 39 - 136 11/21/2014 [facility] CHEM PANEL Bili Total 0.2 0.2 - 1.3 11/21/2014 [facility] CHEM PANEL ALANINE AMINOTRANSFERASE 23 0 - 65 11/21/2014 [facility] CHEM PANEL AST 14 0 - 37 11/21/2014 [facility] CHEM PANEL Potassium Lvl 3.8 3.5 - 5.1 11/21/2014 [facility] CHEM PANEL Sodium Lvl 139 135 - 145 11/21/2014 [facility] CHEM PANEL Chloride Lvl 107 95 - 109 11/21/2014 [facility] CHEM PANEL CO2 24 24 - 32 11/21/2014 [facility] CHEM PANEL AGAP 11.8 10.0 - 20.0 11/21/2014 [facility] CHEM PANEL Calcium Lvl 7.8 8.5 - 10.5 11/21/2014 [facility] CHEM PANEL B/C Ratio 13 6 - 25 11/21/2014 [facility] CHEM PANEL Total Protein 6.7 6.4 - 8.4 11/21/2014 [facility] CHEM PANEL Globulin 3.1 2.0 - 4.0 11/21/2014 [facility] CHEM PANEL Albumin Lvl 3.6 3.5 - 5.0 11/21/2014 [facility] CHEM PANEL A/G Ratio 1.2 0.7 - 1.6 11/21/2014 [facility] CHEM PANEL Creatinine Lvl 1.1 0.5 - 1.4 11/21/2014 [facility] CHEM PANEL Glucose Lvl 138 70 - 99 11/21/2014 <sup>2</sup>Interpretive Data: Adult ref erence range values reflect the clinical guidelines
of the [place] [employer]. [facility] CHEM PANEL BUN 14 7 - 22 11/21/2014 [facility] HEMATOLOGY Monocytes 6.9 2.0 - 12.0 11/21/2014 [facility] HEMATOLOGY Lymphocytes 29.9 20.0 - 40.0 11/21/2014 [facility] HEMATOLOGY Eosinophils # 0.2 0.0 - 0.5 11/21/2014 [facility] HEMATOLOGY Basophils # 0.1 0.0 - 0.2 11/21/2014 [facility] HEMATOLOGY Segs-Bands # 4.8 1.5 - 8.1 11/21/2014 [facility] HEMATOLOGY Eosinophils 1.9 0.0 - 4.0 11/21/2014 [facility] HEMATOLOGY Lymphocytes # 2.4 1.0 - 5.5 11/21/2014 [facility] HEMATOLOGY Basophils 0.9 0.0 - 1.0 11/21/2014 [facility] HEMATOLOGY Monocytes # 0.5 0.0 - 0.8 11/21/2014 [facility] HEMATOLOGY Segs 60.4 45.0 - 75.0 11/21/2014 [facility] HEMATOLOGY Hct 38.8 42.0 - 54.0 11/21/2014 [facility] HEMATOLOGY MCV 83.1 80.0 - 94.0 11/21/2014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
--- OUTSIDE RECORDS SUMMARY | 2020-06-27 13:53 | XMS REPORT | Continuity of Care Document ---
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 Route: IVP, PRN, 4,300 unit, 4.3 mL, Drug form: INJ, PRN, Heparin Protocol, Start date: 05/03/18 14:17:00 CDT Stop date: 06/02/18 14:16:00 CDT, 30 day [facility] Heparin - one time bolus for ACS 2018-05-03 19:17:00 No 4,000 unit, 4 mL, Route: IVP, Drug form: INJ, ONCE, Dosing Weight 81.818, kg, Priority: STAT, Start date: 05/03/18 14:17:00 CDT, Stop date: 05/03/18 14:17:00 CDT [facility] Nitroglycerin 2018-05-03 17:26:00 No 0.4 mg, Route: SL, ONCE, Dosing Weight 81.818, kg, Priority: STAT, Start date: 05/03/18 12:26:00 CDT, Stop date: 05/03/18 12:26:00 CDT [facility] Aspirin 2018-05-03 15:43:00 No Notes: Take with food. Annabelle Shin tiotropium (SPIRIVA WITH HANDIHALER) 18 mcg inhalation capsu le 2018-01-11 00:00:00 2020-02-12 00:00:00 No History of emphysema 1{capsule } QD Inhale 1 capsule by mouth daily. [facility] Cyclobenzaprine hydrochloride 10 MG Oral Tablet [Flexeril] 2017-03-16 21:28:00 Yes 10 mg, PO, TID, PRN Musc le Spasm, X 5 day, # 20 tab, 0 Refill(s) [facility] tramadol hydrochloride 50 MG Oral Tablet [Ultram] 2017-03-16 21:28:00 Yes 100 mg = 2 tab, PO, Q6H, PRN pain, X 3 day, # 2 4 tab, 0 Refill(s) [facility] Flexeril 2017-03-16 21:08:00 No Notes: (Neil e As: Flexeril) [facility] tramadol hydrochloride 50 MG Oral Tablet [Ultram] 2017-03-16 21:08:00 No Notes: Not to exceed 400mg/day. (Same As: Ultra m) [facility] Motrin 2017-03-16 19:26:00 No Notes: (Same as: Advil) Give with food. [facility] Bydureon 2016-02-25 00:00:00 Yes Amy Ceballos 1 [facility] topiramate 50 MG Oral Tablet [Topamax] 2016-02-15 17:27:00 No 50 mg = 1 tab, PO, TID, # 60 tab, 0 Refill(s) [facility] Plavix 2016-02-15 14:00:00 No Notes: (Same As: Plavix) [facility] Al hydroxide/Mg hydroxide/simethicone 2016-02-15 09:31:00 N o Notes: (aluminum hydroxide-magnesium hyd-simethicone [phone]/5ml 30 ml ud JAHAIRA) [facility] 3 ML liraglutide 6 MG/ML Prefilled Syringe [Victoza] 2 01:06:00 Yes 18 mg = 3 mL, SUB-Q, Daily, # 3 ea, 3 Re fill(s) [facility] Flexeril 2016-02-15 01:06:00 Yes 5 mg, PO, BID, PRN Muscle Spasm, # 30 tab, 0 Refill(s) [facility] citalopram 10 mg oral tablet 2016-02-15 01:06:00 Yes 10 mg = 1 tab, PO, Daily, 0 Refill(s) [facility] Hydrochlorothiazide 12.5 MG / Lisinopril 20 MG Oral Tablet 2016-02-15 01:06:00 Yes 1 tab, PO, Daily, # 30 tab, 0 R efill(s) [facility] metoprolol tartrate 50 mg oral tablet 2016-02-15 01:06:00 Y es 50 mg = 1 tab, PO, Daily, 0 Refill(s) [facility] Clarithromycin 2016-02-15 01:06:00 Yes 500 mg, PO, Daily, 0 Refill(s) [facility] Metformin 2016-02-15 01:06:00 Yes 1, 000 mg, [...] as:Nitroquick, Nitrostat) "Do Not Crush" Sublingual tablet [facility] Norvasc 2016-02-14 22:00:00 No Notes: (Same as: Norvasc) [facility] Morphine 2016-02-14 21:54:00 No Not es: (Same as:MORPhine Sulfate) [facility] Insulin, Aspart, Human 2016-02-14 21:53:00 No Notes: Roll in palms of hands gently; Do not shake vigorously. (Same as: NovoLOG) "single patient use only" WASTE: F/P - Black; E - Municipal Trash Bin Stable for 28 days at room temperature. Expires in days from Date [facility] Dextrose 50% Syringe 2016-02-14 21:53:00 No 25 gm, 50 mL, Route: IVP, Drug Form: INJ, Dosing Weight 74.091, kg, PRN, PRN Blood Glucose Results, Start date: 02/14/16 16:53:00 CDT, Duration: 30 day, Stop date: 03/15/16 16:52:00 CDT [facility] Glucagon 2016-02-14 21:53:00 No 1 mg, Route: IM, Drug form: PDR/INJ, PRN, Dosing Weight 74.091, kg, PRN Blood Glucose Results, Start date: 02/14/16 16:53:00 CDT, Duration: 30 day, Stop date: 03/15/16 16:52:00 CDT [facility] Acetaminophen 325 MG / Hydrocodone Bitartrate 5 MG Oral Tabl et 2016-02-14 21:50:00 No Notes: (Sa me as: [place] 325/5) Do not exceed 4gm/day of acetaminophen. [...] Size: 4 mg Product Wasted: ___ mg Annabelle Shin Aspirin 2016-02-14 21:25:00 No Notes: Take with food. Annabelle Shin Omnipaque 350 2016-02-14 21:00:00 No Notes: (same as:Omnipaque 350). WASTE: F/P - Black; E - Municipal Trash Bin Annabelle Shin Morphine 2016-02-14 19:42:00 No 2 mg, Route: IVP, Drug form: INJ, ONCE, Dosing Weight 74.091, kg, Priority: STAT, Start date: 02/14/16 14:42:00 CDT, Stop date: 02/14/16 14:42:00 [facility] Saline Flush 0.9% 2016-02-14 19:09:00 No Notes: Same as: BD Posiflush Sterile [facility] Nitroglycerin 2016-02-14 19:09:00 No Notes: (Same as:Nitroquick, Nitrostat) "Do Not Crush" Sublingual tablet [facility] Victoza 2015-11-30 00:00:00 Yes Amy Bañuelosmed 1.2 units [facility] Omnipaque 300 2015-11-12 18:00:00 No Notes: (Same as:Omnipaque 300). [facility] GI cocktail 2015-11-12 14:28:00 No Notes: G.I. Cocktail = antacid with simethicone 22.5 mL - lidocaine viscous 7.5 mL [facility] Morphine 2015-11-12 13:37:00 No 4 mg, Route: IVP, Drug form: INJ, ONCE, Dosing Weight 97.727, kg, Priority: STAT, Start date: 11/12/15 7:37:00, Stop date: 11/12/15 7:37:[address] [facility] Aspirin 325 MG Oral Tablet 2015-11-12 11:59:00 No Notes: Take with food. [facility] pantoprazole 2015-11-12 11:58:00 No Notes: For IV push reconstitute with 10 ml 0.9% sodium chloride and push over 2 minutes. (Same as: Protonix) [facility] Ondansetron 2015-11-12 11:58:00 No Notes: (Same as: Zofran) MEDICATION WASTE Product Size: 4 mg Product Wasted: ___ mg [facility] Morphine 2015-11-12 11:58:00 No Not es: (Same as:MORPhine Sulfate) [facility] Enalapril Maleate 2015-09-05 03:10:10 Yes Amy Ceballos 1 tablet [facility] Metoprolol Succinate ER 2015-09-05 03:10:10 Yes Amy Bañuelosmed 1 tablet [facility] Topamax 2015-09-05 03:10:10 Yes Amy Ceballos 1 ta blet at bedtime [facility] Metoclopramide HCl 2015-09-05 03:10:10 Yes Amy Ahmed Unknown [facility] Fenofibrate 2015-09-05 03:10:10 Yes Amy Ahmed 1 tablet [facility] Gabapentin 2015-09-05 03:10:10 Yes Amy Ahmed U nknown [facility] GlipiZIDE ER 2015-09-05 03:10:10 Yes Amy Ahmed 1 tablet [facility] Clonidine HCl 2015-09-05 03:10:10 Yes Amy Ahmed 1 tablet at bedtime [facility] Metformin HCl 2015-09-05 03:10:10 Yes Amy Ahmed 1 tablet with meals [facility] Sumatriptan-Naproxen Sodium 2015-09-05 03:10:10 Yes Sale fine Ahmed Unknown [facility] Clarithromycin 2015-09-01 00:00:00 Yes Amy Ahmed 1 tablet [facility] Flonase 2015-09-01 00:00:00 Yes Amy Ahmed 1 spray in each nostril [facility] Dilantin 2015-09-01 00:00:00 Yes Amy Ahmed 1 c apsule [facility] Spiriva HandiHaler 2015-09-01 00:00:00 Yes Amy Ahmed 1 capsule [facility] Mucinex 2015-09-01 00:00:00 Yes Amy Ahmed 1 ta blet as needed [facility] Ondansetron 4 MG Disintegrating Tablet [Zofran] 2015-06-23 19:34 :00 Yes Special Instructions: Dissolve tab under tongue [facility] Metoclopramide 5 MG Oral Tablet [Reglan] 2015-06-23 19:32:00 Yes 5 mg = 1 tab, PO, QID, X 10 day, # 40 tab, 0 Refill(s) [facility] Famotidine 20 MG Oral Tablet [Pepcid] 2015-06-23 18:51:00 Y es 20 mg = 1 tab, PO, BID, # 60 tab, 0 Refill(s) [facility] GI cocktail 2015-06-23 17:55:00 No 30 mL, Route: PO, Dosing Weight 93.636, kg, ONCE, STAT, Start date: 06/23/15 12:55:00, Stop date: 06/23/15 12:55:00 [facility] Zofran 2015-06-23 16:44:00 No Notes: (Same as: Zofran) MEDICATION WASTE Product Size: 4 mg Product Wasted: ___ mg Annabelle Shin Sodium Chloride 0.154 MEQ/ML Injectable Solution [...] not give IV push. (Same as: Phenergan) [facility] acetaminophen-codeine #3 2015-02-03 21:12:00 No Notes: Do not exceed 4gm/day of acetaminophen. (Same as: Tylenol with Codeine # 3) [facility] Acetaminophen 2015-02-03 21:12:00 No Notes: Do not exceed 4 gm/day. (Same as: Tylenol) [facility] Morphine 2015-02-03 21:12:00 Yes Not es: (Same as:MORPhine Sulfate) [facility] Fentanyl 2015-02-03 21:12:00 Yes Notes: (Same as: Sublimaze) Preservative free. [facility] Sodium Chloride 0.154 MEQ/ML Injectable Solution [...] as:Nitroquick, Nitrostat) "Do Not Crush" Sublingual tablet [facility] Sodium Chloride 0.154 MEQ/ML Injectable Solution [...] No Notes: Same as: BD Posiflush Sterile [facility] Aspirin 81 MG Enteric Coated Tablet 2015-02-03 14:00:00 No Notes: Do not crush or chew. (Same As: Ecotrin) Jareth Shin topiramate 2015-02-03 14:00:00 No Notes: (Same As: Topamax) "Do Not Crush" [facility] Fenofibrate 2015-02-03 14:00:00 No Notes: ( Same as: Tricor) [facility] enalapril 2015-02-03 14:00:00 No Notes: (Sa me as: Vasotec) [facility] Insulin, Aspart, Human 2015-02-03 06:38:00 No Notes: Roll in palms of hands gently; Do not shake vigorously. (Same as: NovoLOG) "single patient use only" Stable for 28 days at room temperature. Expires in days from Date [facility] Dextrose 50% Syringe 2015-02-03 06:38:00 No 12.5 gm, 25 mL, Route: IVP, Drug Form: INJ, Dosing Weight 95.994, kg, PRN, PRN Blood Glucose Results, Start date: 02/03/15 1:38:00, Duration: 30 day, Stop date: 03/05/15 1:37:00 [facility] Glucagon 2015-02-03 06:38:00 No 1 mg, Route: IM, Drug form: PDR/INJ, PRN, Dosing Weight 95.994, kg, PRN Blood Glucose Results, Start date: 02/03/15 1:38:00, Duration: 30 day, Stop date: 03/05/15 1:37:00 [facility] Saline Flush 0.9% 2015-02-03 06:37:00 No Notes: Same as: BD Posiflush Sterile [facility] Nitroglycerin 2015-02-03 06:37:00 No Notes: (Same as:Nitroquick, Nitrostat) "Do Not Crush" Sublingual tablet [facility] Sodium Chloride 0.154 MEQ/ML Injectable Solution [...] May split tab, but do not crush. [facility] Immunizations Ordered Immunization Name Filled Immunization Name Date Status Comments Source Pneumococcal <Unspecified> 2018-10-30 00:00:00 Completed [facility] Td <Unspecified> 2018-10-30 00:00:00 Completed [facility] Vital Signs Vital Name Observation Time Observation Value Comments Source Systolic (mm Hg) 2018-05-05 21:00:00 [facility] Diastolic (mm Hg) 2018-05-05 21:00:00 [facility] Systolic (mm Hg) 2018-05-05 19:00:00 [facility] Diastolic (mm Hg) 2018-05-05 19:00:00 [facility] Systolic (mm Hg) 2018-05-05 17:00:00 [facility] Diastolic (mm Hg) 2018-05-05 17:00:00 [facility] Respitory Rate 2018-05-05 13:00:00 [facility] Temperature Oral (F) 2018-05-05 12:43:00 98.7 F [facility] Respitory Rate 2018-05-05 12:00:00 [facility] Temperature Oral (F) 2018-05-05 08:00:00 97.6 F [facility] Temperature Oral (F) 2018-05-05 04:27:00 97.2 F [facility] Respitory Rate 2018-05-04 23:15:00 [facility] BMI Calculated 2018-05-04 02:16:00 [facility] Height 2018-05-04 02:16:00 167.64 cm [facility] Weight 2018-05-04 02:16:00 [facility] Weight 2018-05-03 15:21:00 [facility] Height 2018-05-03 15:21:00 167.64 cm [facility] BMI Calculated 2018-05-03 15:21:00 [facility] Heart Rate 2018-05-03 15:21:00 [facility] Heart Rate 2017-03-17 00:31:00 [facility] Temperature Oral (F) 2017-03-17 00:31:00 98.0 F [facility] Systolic (mm Hg) 2017-03-17 00:31:00 [facility] Diastolic (mm Hg) 2017-03-17 00:31:00 [facility] Respitory Rate 2017-03-17 00:31:00 [facility] BMI Calculated 2017-03-16 19:20:00 [facility] Weight 2017-03-16 19:20:00 [facility] Height 2017-03-16 19:20:00 167.64 cm [facility] Temperature Oral (F) 2017-03-16 19:20:00 97.9 F [facility] Systolic (mm Hg) 2017-03-16 19:20:00 [facility] Diastolic (mm Hg) 2017-03-16 19:20:00 [facility] Heart Rate 2017-03-16 19:20:00 [facility] Respitory Rate 2017-03-16 19:20:00 [facility] Systolic (mm Hg) 2016-02-15 18:51:00 [facility] Diastolic (mm Hg) 2016-02-15 18:51:00 [facility] Temperature Oral (F) 2016-02-15 12:55:00 97.4 F [facility] Respitory Rate 2016-02-15 12:55:00 [facility] Systolic (mm Hg) 2016-02-15 12:55:00 [facility] Diastolic (mm Hg) 2016-02-15 12:55:00 [facility] Heart Rate 2016-02-15 12:55:00 [facility] Temperature Oral (F) 2016-02-15 09:06:00 97.8 F [facility] Heart Rate 2016-02-15 09:06:00 [facility] Respitory Rate 2016-02-15 09:06:00 [facility] Systolic (mm Hg) 2016-02-15 09:06:00 [facility] Diastolic (mm Hg) 2016-02-15 09:06:00 [facility] Heart Rate 2016-02-15 06:36:00 [facility] Respitory Rate 2016-02-15 04:15:00 [facility] Temperature Oral (F) 2016-02-15 04:15:00 98.2 F [facility] Weight 2016-02-15 01:41:00 [facility] BMI Calculated 2016-02-15 01:41:00 [facility] Height 2016-02-15 01:41:00 167.64 cm [facility] BMI Calculated 2016-02-14 19:04:00 [facility] Height 2016-02-14 19:04:00 167.64 cm [facility] Weight 2016-02-14 19:04:00 [facility] Temperature Oral (F) 2015-11-12 18:55:00 97.5 F [facility] Systolic (mm Hg) 2015-11-12 18:55:00 [facility] Diastolic (mm Hg) 2015-11-12 18:55:00 [facility] Respitory Rate 2015-11-12 18:55:00 [facility] Systolic (mm Hg) 2015-11-12 17:44:00 [facility] Diastolic (mm Hg) 2015-11-12 17:44:00 [facility] Temperature Oral (F) 2015-11-12 17:44:00 98.3 F [facility] Respitory Rate 2015-11-12 17:44:00 [facility] Temperature Oral (F) 2015-11-12 14:56:00 98.4 F [facility] Systolic (mm Hg) 2015-11-12 14:56:00 [facility] Diastolic (mm Hg) 2015-11-12 14:56:00 [facility] Respitory Rate 2015-11-12 14:56:00 [facility] Heart Rate 2015-11-12 11:55:00 [facility] BMI Calculated 2015-11-12 11:34:00 [facility] Height 2015-11-12 11:34:00 167.64 cm [facility] Weight 2015-11-12 11:34:00 [facility] Heart Rate 2015-11-12 11:34:00 [facility] Weight 2015-09-01 20:15:00 [facility] Height 2015-09-01 20:15:00 [facility] Diastolic (mm Hg) 2015-09-01 20:15:00 [facility] Systolic (mm Hg) 2015-09-01 20:15:00 [facility] Systolic (mm Hg) 2015-06-23 19:49:00 [facility] Diastolic (mm Hg) 2015-06-23 19:49:00 [facility] Respitory Rate 2015-06-23 19:49:00 [facility] Temperature Oral (F) 2015-06-23 19:49:00 97.8 F [facility] Heart Rate 2015-06-23 19:49:00 [facility] Systolic (mm Hg) 2015-06-23 15:50:00 [facility] Diastolic (mm Hg) 2015-06-23 15:50:00 [facility] Heart Rate 2015-06-23 15:50:00 [facility] Respitory Rate 2015-06-23 15:50:00 [facility] Temperature Oral (F) 2015-06-23 15:50:00 97.9 F [facility] BMI Calculated 2015-06-23 15:50:00 [facility] Weight 2015-06-23 15:50:00 [facility] Height 2015-06-23 15:50:00 167.64 cm [facility] Systolic (mm Hg) 2015-02-03 15:09:00 [facility] Diastolic (mm Hg) 2015-02-03 15:09:00 [facility] Heart Rate 2015-02-03 15:09:00 [facility] Respitory Rate 2015-02-03 15:09:00 [facility] Temperature Oral (F) 2015-02-03 15:09:00 98.1 F [facility] Temperature Oral (F) 2015-02-03 15:08:00 98.1 F [facility] Height 2015-02-03 15:08:00 167.64 cm [facility] Systolic (mm Hg) 2015-02-03 14:00:00 [facility] Diastolic (mm Hg) 2015-02-03 14:00:00 [facility] Respitory Rate 2015-02-03 14:00:00 [facility] Temperature Oral (F) 2015-02-03 14:00:00 97.6 F [facility] Heart Rate 2015-02-03 14:00:00 [facility] Heart Rate 2015-02-03 11:22:00 [facility] Respitory Rate 2015-02-03 11:22:00 [facility] Systolic (mm Hg) 2015-02-03 11:22:00 [facility] Diastolic (mm Hg) 2015-02-03 11:22:00 [facility] Weight 2015-02-03 01:34:00 [facility] BMI Calculated 2015-02-03 01:34:00 [facility] Height 2015-02-03 01:34:00 167.64 cm [facility] Heart Rate 2014-11-21 07:21:00 [facility] Respitory Rate 2014-11-21 07:21:00 [facility] Systolic (mm Hg) 2014-11-21 07:21:00 [facility] Diastolic (mm Hg) 2014-11-21 07:21:00 [facility] Diastolic (mm Hg) 2014-11-21 06:05:00 [facility] Systolic (mm Hg) 2014-11-21 06:05:00 [facility] Respitory Rate 2014-11-21 06:05:00 [facility] Heart Rate 2014-11-21 06:05:00 [facility] Systolic (mm Hg) 2014-11-21 04:50:00 Patrick tanner [facility] Diastolic (mm Hg) 2014-11-21 04:50:00 Mem orikristin [facility] Respitory Rate 2014-11-21 04:50:00 Ashish foster [facility] Heart Rate 2014-11-21 04:50:00 [facility] Temperature Oral (F) 2014-11-21 04:01:00 98.2 F [facility] Weight 2014-11-21 04:01:00 [facility] BMI Calculated 2014-11-21 04:01:00 Ashish foster [facility] Height 2014-11-21 04:01:00 167.64 cm [facility] Procedures Procedure Date / Time Performed Performing Clinician [facility] e Angiogram [facility] Stent placement<sup>1</sup> Patrick tanner [facility] Plan of Care Planned Activity Planned Date Details Comments Source Future Scheduled Test 2020-07-30 00:00:00 IMM Influenza Seas onal Jul to December (>/= 19 yrs) [code = IMM Influenza Seasonal Jul to December (>/= 19 yrs)] [facility] Scheduled Test 2020-03-20 00:00:00 DM Foot Exam (Year ly) [code = DM Foot Exam (Yearly)] [facility] Scheduled Test 2020-03-19 00:00:00 CORONARY ARTERY DI SEASE AGE 18 AND UP [code = CORONARY ARTERY DISEASE AGE 18 AND UP] [facility] Scheduled Test 2020-03-19 00:00:00 Hemoglobin A1c miguel surement (procedure) [code = 92469485] [facility] Scheduled Test 2020-03-19 00:00:00 DM Retinal Exam (Y early) [code = DM Retinal Exam (Yearly)] [facility] Scheduled Test 2019-07-12 00:00:00 Screening for lowell gnant neoplasm of colon (procedure) [code = 974469689] [facility] Encounters Start Date/Time End Date/Time Encounter Type Admission Type [facility] Facility Care Department Encounter ID Source 2019-06-14 00:00:00 2019-06-14 00:00:00 Outpatient [facility] [id number] [facility] 2019-06-13 00:00:00 2019-06-13 00:00:00 [facility] [facility] [id number] [facility] 2019-05-24 00:00:00 2019-05-24 00:00:00 [facility] [id number] [facility] 2019-05-21 00:00:00 2019-05-21 00:00:00 [facility]patient [facility] [id number] [facility] 2019-05-17 00:00:00 2019-05-17 00:00:00 Outpatient [facility] [id number] [facility] 2019-05-17 00:00:00 2019-05-17 00:00:00 Outpatient [facility] [id number] [facility] 2019-05-16 00:00:00 2019-05-16 00:00:00 [facility]patient [facility] [id number] [facility] 2019-04-26 00:00:00 2019-04-26 00:00:00 Outpatient [facility] [id number] [facility] 2019-04-18 08:38:36 2019-04-18 08:38:36 Outpatient [facility] [id number] [facility] 2019-04-05 14:22:52 2019-04-05 14:22:52 Outpatient [facility] [id number] [facility] 2019-04-02 00:00:00 2019-04-02 00:00:00 Outpatient [facility] [id number] [facility] 2019-03-20 15:25:36 2019-03-20 15:25:36 Outpatient [facility] [id number] [facility] 2019-03-20 13:59:36 2019-03-20 13:59:36 Outpatient [facility] [id number] [facility] 2019-03-20 13:38:31 2019-03-20 13:38:31 Outpatient [facility] [id number] [facility] 2019-03-20 00:00:00 2019-03-20 00:00:00 Outpatient [facility] [id number] [facility] 2019-03-19 09:25:24 2019-03-19 09:25:24 Outpatient [facility] [id number] [facility] 2019-03-19 09:24:15 2019-03-19 09:24:15 Outpatient [facility] [id number] [facility] 2019-03-01 00:00:00 2019-03-01 00:00:00 Outpatient [facility] [id number] [facility] 2019-03-01 00:00:00 2019-03-01 00:00:00 Outpatient [facility] [id number] [facility] 2019-02-28 15:03:09 2019-02-28 15:03:09 Outpatient [facility] [id number] [facility] 2019-02-26 11:27:45 2019-02-26 11:27:45 Outpatient [facility] [id number] [facility] 2018-07-30 00:00:00 2018-07-30 00:00:00 Outpatient [facility] [id number] [facility] 2018-07-13 15:50:17 2018-07-13 15:50:17 Outpatient [facility] [id number] [facility] 2018-07-12 10:00:37 2018-07-12 10:00:37 Outpatient [facility] [id number] [facility] 2018-07-11 17:37:36 2018-07-11 17:37:36 Outpatient [facility] [id number] [facility] 2018-07-09 23:45:28 2018-07-09 23:45:28 Emergency [facility] [id number] [facility] 2018-07-09 22:15:22 2018-07-09 22:15:22 Emergency [facility] [id number] [facility] 2018-07-09 21:53:39 2018-07-09 21:53:39 Emergency [facility] [id number] [facility] 2018-07-09 21:43:52 2018-07-09 21:43:52 Outpatient [facility] [id number] [facility] 2018-07-09 00:00:00 2018-07-09 00:00:00 Emergency [facility] [id number] [facility] 2018-07-09 00:00:00 2018-07-09 00:00:00 Emergency [facility] [id number] [facility] 2018-05-03 10:20:00 2018-05-05 17:20:00 Outpatient Tanisha Anderson [facility] [id number] 2017-03-16 14:03:00 2017-03-16 19:36:00 Outpatient F Kaitlin weaver [facility] [id number] 2016-02-25 11:56:00 2016-02-25 11:56:00 Outpatient [facility] [id number] [employer] 2016-02-14 13:59:00 2016-02-16 15:32:00 Outpatient Khari Teague [facility] [id number] 2015-11-12 05:27:00 2015-11-12 12:59:00 Outpatient V[facility] [id number] 2015-09-01 14:15:00 2015-09-01 14:15:[address] [facility] [id number] [employer] 2015-06-23 10:45:00 2015-06-23 14:53:00 Outpatient Bud Agu[facility] [id number] 2015-03-17 10:23:00 2015-03-17 10:23:00 Outpatient [facility] [id number] eClinicalWork s 2015-02-02 20:21:00 2015-02-03 18:02:00 Outpatient Sheikh Eloy Ceballos [facility] [id number] 2014-11-20 21:40:00 2014-11-21 01:25:00 Outpatient Cornel Griffin [facility] [id number] Results Test Description Test Time Test Comments Results Result Comments Source CXR 1 VEW - HOPD 2020-06-27 13:19:00 [place] [address] Patient Name: CORNELIO PEÑA MR #: [id number] : 1965 Age/Sex: 55/M Req #: [id number] [facility] Physician: Ordered by: NEGRO PATEL MD Report #: [id number] Location: [facility] Room/Bed: Procedure: [id number] HOPD/CXR 1 VEW - HOPD Exam Date: [...] rapid COVID-19 testi ng: Emergent Procedure URINALYSIS [id number] 20:44:00* Test Item Value Reference Range Interpretation [...] Urine Source? Clean CatchDRUGS OF ABUSE SCREEN [id number] 20:44:00* Test Item Value Reference Range Interpretation [...] NEGATIVE NEGATIV E Urine Source? Clean CatchURINALYSIS [id number] 20:42:00* Test Item Value Reference Range Interpretation [...] Urine Source? Clean CatchDRUGS OF ABUSE SCREEN [id number] 20:42:00* Test Item Value Reference Range Interpretation Comments URN COCAINE (test code = COCAURN) NEGATIVE URN CANNABINOIDS (test code = CANNABURN) NEGATIVE URN AMPHETAMINE (test code = AMPHETURN) NEGATIVE URN BARBITURATE (test code = BARBITURN) NEGATIVE URN BENZODIAZEPINE (test code = BENZOURN) NEGATIVE URN OPIATES (test code = OPIATURN) NEGATIVE URN PHENCYCLIDINE (PCP) (test code = PHENCURN) NEGATIV E Urine Source? Clean CatchURINALYSIS [id number] 20:37:00* Test Item Value Reference Range Interpretation [...] Urine Source? Clean CatchDRUGS OF ABUSE SCREEN [id number] 20:37:00* Test Item Value Reference Range Interpretation [...] Urine Source? Clean Catch- XR CHEST 1 [id number] 19:57:00 Name: CORNELIO PEÑA [facility] : 1965 Age/S:55 /M [address] [facility] Unit#:[id number] Loc: [place] [address] Phys: Sruthi Thomson MD Dis Date: PHONE #: [phone] Status: REG ER FAX #: [phone] Exam Date: 04/23/2020 Reason: chest pain EXAMS: CPT CODE: [id number] XR CHEST 1 V 06064 EXAM: Chest X-ray, 1 view; CLINICAL HISTORY: Chest pain; FINDINGS: The lungs are clear, no infiltrates, no edema; no effusions; no pneumothorax; Elevation of the right hemidiaphragm; normal cardiomediastinal silhouette. IMPRESSION: No evidence of active cardiopulmonary disease. Location code: [facility] at 1954 Reported and signed by: Say Galindo M.D. CC: Lin Ceballos MD; Sruthi Thomson MD Technologist: Karon Martinez Trnscrpt Data: 04/23/2020 (1954) t.SDR.GRW Orig Print D/T: S: (1999) PAGE 1 Signed Rep ort [id number] 19:51:00* Test Item Value Reference Range Interpretation Comments TROPONIN-I (test code = TROPI) <0.015 ng/mL 0.00-0.056 N B-TYPE NATRIURETIC [id number] 19:39:00* Test Item Value Reference Range Interpretation Comments B-TYPE NATRIURETIC PEPTIDE (test code = BNP) 32.1 pg/mL 0-100 N PROTHROMBIN [id number] 19:36:00* Test Item Value Reference Range Interpretation [...] (2.5-3.5) IS PATIENT ON ANTICOAGULANTS? NCOMPREHENSIVE METABOLIC [id number] 19:35:00 * Test Item Value Reference Range [...] code = ALKP) 114 U/L 38-126 N [id number] 19:35:00* Test Item Value Reference Range Interpretation Comments LIPASE (test code = LIP) 157 U/L 128-270 N COMPREHENSIVE METABOLIC [id number] 19:32:00* Test Item Value Reference Range Interpretation [...] TOTAL (test code = ALKP) IUnit/L 45-117 [id number] 19:32:00* Test Item Value Reference Range Interpretation Comments LIPASE (test code = LIP) Unit/L 144-286 CBC W/AUTO [id number] 19:21:00* Test Item Value Reference Range Interpretation [...] (test code = MDIFF) NO - CTA [id number] 09:30:00 Name: CORNELIO PEÑA [facility] : 1965 Age/S: 53 / M [address] Unit #: [id number] Loc: [place] [address] Phys: Renée Kay MD Acct: [id number] Dis Date: Status: ADM IN PHONE #: [phone] Exam Date: 02/22/2019 0859 FAX #: [phone] Reason: CHEST PAIN EXAMS: CPT CODE: [id number] CTA CHEST 48145 HISTORY: Chest pain. COMPARISON: None available. CTA [...] 212 mg/dL 74-106 H Performed by certified setup operator at [facility] CBC W/AUTO [id number] 07:14:00* Test Item Value Reference Range Interpretation [...] (test code = MDIFF) NO BASIC METABOLIC [id number] 07:09:00* Test Item Value Reference Range Interpretation [...] CA) 8.8 mg/dL 8.5-10.1 N BASIC METABOLIC [id number] 07:00:00* Test Item Value Reference Range Interpretation [...] code = CA) mg/dL 8.5-10.1 CBC W/AUTO [id number] 06:50:00* Test Item Value Reference Range Interpretation [...] # (test code = BA#) K/mm3 0.0-0.2 [id number] 20:20:00* Test Item Value Reference Range Interpretation Comments GLUBED (test code = GLUBED) 270 mg/dL 74-106 H Performed by certified setup operator at [facility] [id number] 16:24:00* Test Item Value Reference Range Interpretation Comments GLUBED (test code = GLUBED) 233 mg/dL 74-106 H Performed by certified setup operator at [facility] [id number] 11:31:00* Test Item Value Reference Range Interpretation Comments GLUBED (test code = GLUBED) 174 mg/dL 74-106 H Performed by certified setup operator at [facility] ANTINUCLEAR ANTIBODIES [id number] 11:13:00* Test Item Value Reference Range Interpretation Comments NAT SCREEN (test code = ANASCR) Negative Negative Performed At: [facility] [id number] Neo Anderson MD Ph:[phone] B-TYPE NATRIURETIC [id number] 09:49:00* Test Item Value Reference Range Interpretation Comments B-TYPE NATRIURETIC PEPTIDE (test code = BNP) 23.12 pgram/mL 0-100 N BASIC METABOLIC [id number] 09:00:00* Test Item Value Reference Range Interpretation [...] This LDL result is a direct measurement.========= XERFXXBGC6378-80-50 09:00:00* Test Item Value Reference Range Interpretation Comments MAGNESIUM (test code = MAG) 1.7 mg/dL 1.8-2.4 L BASIC METABOLIC [id number] 08:47:00* Test Item Value Reference Range Interpretation [...] LDL (test code = LDL) mg/dL 100-129 [id number] 08:47:00* Test Item Value Reference Range Interpretation Comments MAGNESIUM (test code = MAG) mg/dL 1.8-2.4 PROTHROMBIN [id number] 08:33:00* Test Item Value Reference Range Interpretation [...] (2.5-3.5) IS PATIENT ON ANTICOAGULANTS? NCBC W/AUTO [id number] 08:32:00* Test Item Value Reference Range Interpretation [...] (test code = MDIFF) NO CBC W/AUTO [id number] 08:25:00* Test Item Value Reference Range Interpretation [...] (test code = BA#) K/mm3 0.0-0.2 COMPLEMENT [id number] 08:14:00* Test Item Value Reference Range Interpretation Comments COMPLEMENT C3 (test code = COMC3) mg/dL COMPLEMENT [id number] 08:14:00* Test Item Value Reference Range Interpretation Comments COMPLEMENT C4 (test code = COMC4) 24 mg/dL 14-44 COMPLEMENT [id number] 08:14:00* Test Item Value Reference Range Interpretation Comments COMPLEMENT C3 (test code = COMC3) 161 mg/dL 82-167 Performed At: [facility] [id number] Kyle L MD Ph:[phone] COMPLEMENT [id number] 08:14:00* Test Item Value Reference Range Interpretation Comments COMPLEMENT C4 (test code = COMC4) 24 mg/dL 14-44 [id number] 20:28:00* Test Item Value Reference Range Interpretation Comments GLUBED (test code = GLUBED) 287 mg/dL 74-106 H Performed by certified setup operator at [facility] [id number] 16:07:00* Test Item Value Reference Range Interpretation Comments GLUBED (test code = GLUBED) 232 mg/dL 74-106 H Performed by certified setup operator at [facility] SED RATE [id number] 15:41:00* Test Item Value Reference Range Interpretation Comments SED RATE WESTERGREN (test code = SEDW) 12 mm/hr 0-15 N SED [id number] 15:41:00* Test Item Value Reference Range Interpretation Comments SED RATE (test code = SEDW) 12 mm/hr 0-15 WINTROBE METHOD: NORMAL RANGE FOR MEN: 0-9 MM/HR WOMAN: 0-20 MM/HR [id number] 11:38:00* Test Item Value Reference Range Interpretation Comments GLUBED (test code = GLUBED) 232 mg/dL 74-106 H Performed by certified setup operator at [facility] [id number] 10:57:00* Test Item Value Reference Range Interpretation Comments TROPONIN-I (test code = TROPI) <0.015 ng/mL 0-0.045 N COMMENTS TO BACK ROLLER: COLLECT 3 HOURS AFTER PREVIOUS SAMPLEDRUGS OF ABUSE SCREEN [id number] 10:46:00* Test Item Value Reference Range Interpretation [...] ng/mL SPECIMEN COMMENTS: sample in labCOMMENTS TO BACK ROLLER: sample in labDRUGS OF ABUSE SCREEN [id number] 10:00:00* Test Item Value Reference Range Interpretation [...] ng/mL SPECIMEN COMMENTS: sample in labCOMMENTS TO BACK ROLLER: sample in lab- XR CHEST 1 [id number] 07:34:00 Name: CORNELIO PEÑA [facility] : 1965 Age/S:53 /M [address] [facility] Unit#:[id number] Loc: [address] [place] [address] Phys: Candy Ashraf MD Dis Date: PHONE #: [phone] Status: ADM IN FAX #: [phone] Exam Date: 02/19/2019 Reason: CP EXAMS: CPT CODE: [id number] XR CHEST 1 V 32900 HISTORY: Chest pain TECHNIQUE: AP chest x-ray [...] S: 02/20/2019 (0737) PAGE 1 Signed Report [id number] 06:17:00* Test Item Value Reference Range Interpretation Comments TROPONIN-I (test code = TROPI) <0.015 ng/mL 0-0.045 N COMMENTS TO BACK ROLLER: COLLECT 3 HOURS AFTER PREVIOUS SAMPLEBASIC METABOLIC [id number] 06:17:00* Test Item Value Reference Range Interpretation [...] result is a direct measurement.========= BASIC METABOLIC [id number] 06:08:00* Test Item Value Reference Range Interpretation [...] LDL (test code = LDL) mg/dL 100-129 [id number] 06:07:00* Test Item Value Reference Range Interpretation Comments GLYCOSYLATED HEMOGLOBIN (HA1C) (test code = GLYHGB) 9.3 % HbA1 4. 8-6.0 H ESTIMATED AVERAGE GLUCOSE (test code = EAG) 220 MG/DL CBC W/AUTO [id number] 05:23:00* Test Item Value Reference Range Interpretation [...] DIFF REQUIRED (test code = MDIFF) NO [id number] 01:39:00* Test Item Value Reference Range Interpretation Comments GLUBED (test code = GLUBED) 322 mg/dL 74-106 H Performed by certified setup operator at [facility] COMPREHENSIVE METABOLIC [id number] 22:39:00* Test Item Value Reference Range Interpretation [...] code = ALKP) 122 U/L 38-126 N [id number] 22:39:00* Test Item Value Reference Range Interpretation Comments LIPASE (test code = LIP) 205 U/L 128-270 N [id number] 22:39:00* Test Item Value Reference Range Interpretation Comments MAGNESIUM (test code = MAG) 1.5 mg/dL 1.6-2.3 L CPK-MB [id number] 22:39:00* Test Item Value Reference Range Interpretation Comments CREATINE KINASE (CK) (test code = CK) 127 U/L 39-308 N CKMB (test code = CKMBT) 1.8 ng/mL 0.0-5.0 N RELATIVE % INDEX (test code = REL%) 1.4 % [id number] 22:39:00* Test Item Value Reference Range Interpretation Comments TROPONIN-I (test code = TROPI) <0.015 ng/mL 0.00-0.056 N URINALYSIS W/O [id number] 22:24:00* Test Item Value Reference Range Interpretation [...] SPECIFICALLY ORDERED BY A PHYSICIAN. B-TYPE NATRIURETIC [id number] 22:22:00* Test Item Value Reference Range Interpretation Comments B-TYPE NATRIURETIC PEPTIDE (test code = BNP) 5.8 pg/mL 0-100 N E-[id number]2 22:22:00* Test Item Value Reference Range Interpretation Comments D-DIMER (test code = DDIMER) < 100 ng/ml < 600 CBC W/AUTO [id number] 22:16:00* Test Item Value Reference Range Interpretation [...] REQUIRED (test code = MDIFF) NO CHEM [id number] 08:40:002.9[facility] AICBB3022-36-80 08:40:001.9 [facility] GTMQH8134-29-64 08:40:0079[facility]annCHEM PANEL 2018-05-05 08:40:008.2[facility]annCHE[facility] [id number] 08:40:0020[facility] NOSSP4241-18-95 08:40:21418Nkcgorjq HermannCHEM FLKNG3419-15-73 08:40:0012[facility]annCHE[facility] ESFNX0920-61-36 08:40:003.5[facility]annCHE[facility] WFPJE8328-27-12 08:40:001.08[facility]annCHE[facility] VVEOW6871-25-86 08:40:48193 [facility] RZXQH2239-52-98 08:40:90357Zxasjwsr HermannCHEM PANEL 2018-05-05 08:40:0014.5[facility] ArfhpdnRCLVXIHKMD1789-83-38 08:40:37352Huflxwew GzirbuuFVYGZBQNSS5069-81-20 08:40:009.9[facility] FlzhsggISZUUAREKI0837-41-79 08:40:0014.2[facility] EltybevHQBBHRBVTM7587-02-64 08:40:00* Test Item Value Reference Range Interpretation Comments MCH (test code = MCH) 28.2 pg 27.0-31.0 [facility] YilrejgRTNHXNBGEZ1684-18-15 08:40:0037.0[facility]annHEMATOLOGY 2018-05-05 08:40:0084.7[facility] MjoggysBJHCWFSBDT5791-56-72 08:40:0012.3[facility] ZiymyxcUWBWOFNALY5972-19-63 08:40:0033.3[facility] TbytligECLHBBZPDY0732-33-52 08:40:0012.4[facility] AuixpgoUHONOUSHAV0069-43-18 08:40:004.37[facility] QPXMOUTBQA3956-01-55 08:40:001.0[facility] PnotktfQCIMZNEXDQ5886-00-29 08:40:000.1 [facility] QzidqiqXUKZHPYEXE9423-35-67 08:40:009.7[facility]annHEMATOLOGY 2018-05-05 08:40:001.5[facility] UjnueghVTYRPAJAQH1323-63-98 08:40:000.3[facility] OnobnbqRIWQYHATKX2653-24-07 08:40:000.8[facility] RpgweqvHMOGPSLWUI6482-78-04 08:40:0012.2[facility] VgqukfgZPPAZNXEBD8552-80-72 08:40:008.2[facility] SPXPRTFBHN2461-49-76 08:40:0078.5[facility] HermannPARATHYROID PXIOLWH2884-90-80 08:40:001.05[facility] HermannPARATHYROID HFMVAWY8160-70-96 08:40:001.10[facility]annCHEM MTCDZ4882-63-99 10:37:003.6[facility]annCHE[facility] ZKNOS0442-84-74 10:37:0082[facility]annCHEM WEIQV0545-38-70 10:37:0020[facility]annCHEM LPIWV5094-36-64 10:37:60703Hdxtbnli HermannCHEM EJZAJ8925-93-17 10:37:008.5 [facility] AWYYP6942-21-79 10:37:48360Hygbqkld HermannCHEM PANEL 2018-05-04 10:37:003.6[facility]annCHEM DKJIN8400-97-54 10:37:001.05[facility]annCHEM RAFLR3841-35-99 10:37:0013[facility]annCHEM NGFDV8398-85-12 10:37:24883Skybvglb HermannCHEM XNCEU8761-10-00 10:37:0018.6[facility]annCHEM KZSZY7150-43-15 10:37:001.6[facility] KrpzxskRYYIHSPIMF4087-29-37 10:37:004.64 [facility] TrcwvvrFSOTWGRSSP1453-20-64 10:37:0033.7[facility]annHEMATOLOGY 2018-05-04 10:37:65882Dczafkje YghqcslSOXZDYRREG1588-05-56 10:37:0014.1[facility] MpdelmkMXRQJCKAKJ2023-87-04 10:37:00* Test Item Value Reference Range Interpretation Comments MCH (test code = MCH) 28.7 pg 27.0-31.0 [facility] BtqldweTOWUTGCKFI6675-98-56 10:37:0085.4[facility]annHEMATOLOGY 2018-05-04 10:37:0013.3[facility] TvkfhgxEOWSOVWREQ8542-65-83 10:37:0013.9[facility] ZefebcsVJWZFQTWUU6943-10-59 10:37:009.9[facility] EvzkfhhUITOCYMWXM7575-97-27 10:37:0039.6[facility] IvknqqbMDURRNOLZH5507-84-56 10:37:000.1[facility] NVSRDJMFXZ9648-49-20 10:37:000.1[facility] BftkugbKFQUYRETCI9949-24-20 10:37:000.8 [facility] OfadfjqCBMFKGNIMM4956-77-28 10:37:008.0[facility]annHEMATOLOGY 2018-05-04 10:37:0072.9[facility] QwigeioQANTYEENBY4937-95-11 10:37:0017.9[facility] MynzygfTKHMTKUUHR9555-06-27 10:37:0010.2[facility] WvhwanjMMYHLVRAWP4647-08-39 10:37:000.4[facility] BefwvziOITYPYZCSN9352-55-14 10:37:002.5[facility] OELTLSICYG9935-56-76 10:37:001.1[facility] SxqeiyuWZVZLEVKMU9208-90-28 10:37:00* Test Item Value Reference Range Interpretation Comments PTT (test code = PTT) 37.7 s 22.9-35.8 [facility] DurhzwbQRVVSENYVJ7353-88-43 10:37:00* Test Item Value Reference Range Interpretation Comments INR (test code = INR) 1.06 1 0.85-1.17 [facility] OliebriNWBVPXDZAB7710-59-02 10:37:00* Test Item Value Reference Range Interpretation Comments PT (test code = PT) 13.8 s 12.0-14.7 [facility] HermannCARDIAC YWHYCRH6764-97-06 02:29:00<0.02[facility]annCARDIAC STPKPHH3676-93-54 02:29:00<0.010[facility] HermannCARDIAC QWQWMJZ8158-70-78 02:29:46380Rnzwjjlu HermannCARDIAC HBBALFI1532-88-45 02:29:003.2[facility] CARDIAC XNPCMAV4620-51-92 02:29:00* Test Item Value Reference Range Interpretation Comments CK MB Index (test code = CK MB Index) 1.4 1 <=2.5 [facility] DmsjavwYOLTRIQIWB6032-11-90 02:29:00* Test Item Value Reference Range Interpretation Comments PT (test code = PT) 14.0 s 12.0-14.7 [facility] OlvylnwVVPHELGIYB8210-36-56 02:29:00* Test Item Value Reference Range Interpretation Comments PTT (test code = PTT) 34.6 s 22.9-35.8 [facility] AzedcyxIXOHWQSEDS3581-36-26 02:29:00* Test Item Value Reference Range Interpretation Comments INR (test code = INR) 1.08 1 0.85-1.17 [facility] QcqltcmTGFOHOCJEK0382-28-48 02:29:000.1[facility] HermannHEMATOLOGY 2018-05-04 02:29:001.1[facility] RlqlplmNHFLEKKSEG7126-50-12 02:29:000.1[facility] GgaytawSDAVHWRBRN2145-28-41 02:29:000.5[facility] DtzhanrAUPYYUETUR1536-55-33 02:29:002.2[facility] JpcgaqfKOIPHMKSZW1943-90-72 02:29:0012.1[facility] WUEQBAYNYP8094-22-91 02:29:000.8[facility] MdtysrhMVQVKCCXAA5070-52-55 02:29:007.2 [facility] WxrkhgeRRMKWMOUPM6748-24-44 02:29:0014.0[facility] HermannHEMATOLOGY 2018-05-04 02:29:0077.5[facility] NwakyksILTSSUPWQD5343-80-60 02:29:00* Test Item Value Reference Range Interpretation Comments MCH (test code = MCH) 28.5 pg 27.0-31.0 [facility] PzdooayVZTKIAGPBT8301-88-12 02:29:0085.4[facility]annHEMATOLOGY 2018-05-04 02:29:0041.3[facility] OngnnlfFDORTUYDPL5170-92-80 02:29:0013.8[facility] OvdkfdcJRAMRSUBZG5053-88-59 02:29:004.84[facility] RslrbxjIGWVVYWMSU3586-22-61 02:29:0015.7[facility] WdlfmyvTXXXMGOMHI5007-60-86 02:29:0033.4[facility] BOWBMTNPPV2661-52-54 02:29:009.7[facility] VizvkyaZZBTYZHRHD1321-61-57 02:29:82756 [facility] SsqxixvGBDLIYZAQS3902-85-57 02:29:0014.6[facility] HermannIMMUNOLOGY 2018-05-04 02:29:00Negative *NA*(05/03/18 9:29 PM)[facility] HermannIMMUNOLOGY 2018-05-04 02:29:00Negative *NA*(05/03/18 9:29 PM)[facility] HermannIMMUNOLOGY 2018-05-04 02:29:00Negative *NA*(05/03/18 9:29 PM)[facility] HermannIMMUNOLOGY 2018-05-04 02:29:00Negative *NA*(05/03/18 9:29 PM)[facility] HermannMYOGLOBIN 2018-05-04 02:29:78637Yyirqtvn HermannURINE AND GDAZR6122-57-31 21:00:57Negative *NA*(05/03/18 4:00 PM)[facility] ZKISL3271-79-71 21:00:57Negative (05/03/18 4:00 PM)[facility] RTYJC9976-98-67 21:00:57Negative (05/03/18 4:00 PM)[facility] RYNNB5420-21-25 21:00:57Negative (05/03/18 4:00 PM)[facility] [id number] 21:00:570.2[facility] [id number] 21:00:57Clear (05/03/18 4:00 PM)[facility] [id number] 21:00:57Yellow *NA*(05/03/18 4:00 PM)[facility] [id number] 21:00:57* Test Item Value Reference Range Interpretation Comments UA pH (test code = UA pH) 6.0 1 5.0-8.0 [facility] [id number] 21:00:57* Test Item Value Reference Range Interpretation Comments UA Spec Grav (test code = UA Spec Grav) 1.020 1 [facility] [id number] 20:30:00<0.010[facility] [id number] 20:30:00<0.02[facility] [id number] 20:30:22542Ccyjvvkb [facility]annCARD[facility] [id number] 20:30:00* Test Item Value Reference Range Interpretation Comments CK MB Index (test code = CK MB Index) 1.0 1 <=2.5 [facility] [id number] 20:30:002.5[facility] PANEL 2018-05-03 20:00:000.4[facility] [id number] 20:00:0021[facility] [id number] 20:00:0027[facility] [id number] 20:00:0084[facility] [id number] 20:00:007.7[facility] [id number] 20:00:004.2[facility] [id number] 20:00:0078 [facility] [id number] 20:00:00* Test Item Value Reference Range Interpretation Comments B/C Ratio (test code = B/C Ratio) 7 1 6-25 [facility] [id number] 20:00:003.3[facility] PAN[facility] 2018-05-03 20:00:31508Fcakpjvt HermannCHEM [id number] 20:00:0025[facility] [id number] 20:00:0015.3[facility] [id number] 20:00:009.5[facility] [id number] 20:00:001.09[facility] [id number] 20:00:48121Zzgbjuvu HermannCHEM [id number] 20:00:008 [facility] [id number] 20:00:0099[facility] PAN[facility] 2018-05-03 20:00:00* Test Item Value Reference Range Interpretation Comments A/G Ratio (test code = A/G Ratio) 1.2 1 0.7-1.6 [facility] [id number] 20:00:003.5[facility]OLOGY 2018-05-03 20:00:00* Test Item Value Reference Range Interpretation Comments INR (test code = INR) 1.03 1 0.85-1.17 [facility] [id number] 20:00:00* Test Item Value Reference Range Interpretation Comments PTT (test code = PTT) 31.1 s 22.9-35.8 [facility]JryldpbRQJCNHNUCE9507-38-48 20:00:00* Test Item Value Reference Range Interpretation Comments PT (test code = PT) 13.5 s 12.0-14.7 [facility] [id number] 20:00:000.1[facility] HermannIMMUNOLOGY 2018-05-03 20:00:00Negative *NA*(05/03/18 3:00 PM)[facility] KiirecxAISBGN1292-82-34 20:00:00See Note 2*NA*(05/03/18 3:00 PM)[facility] RhjqceeEGEWPJ2741-80-13 20:00:00 29[facility] NnjteayDAIPLE3488-80-23 20:00:00* Test Item Value Reference Range Interpretation Comments CHD Risk (test code = CHD Risk) 7.72 1 4.00-7.30 [facility] BdexqixNMARTQ2550-72-86 20:00:72154Fungtfyz MbflptlYGIVBE9474-78-30 20:00:41309[place] HermannSPECIAL TGGIIEZSA8717-35-62 20:00:008.5[facility] HermannDRUG XKIKYW1880-21-09 19:12:00Positive *ABN*(05/03/18 2:12 PM)[facility]annDR[facility] EUXDOS0212-32-77 19:12:00Negative *NA*(05/03/18 2:12 PM)[facility]ann[facility] JVHQYL3149-10-36 19:12:00Negative *NA*(05/03/18 2:12 PM)[facility]annDR[facility] ANMTFF8927-21-59 19:12:00Positive *ABN*(05/03/18 2:12 PM)[facility]annDR[facility] GOGEOE5237-87-21 19:12:00See Note (05/03/18 2:12 PM)[facility] XMHUAB1459-93-77 19:12:00Negative *NA*(05/03/18 2:12 PM)[facility]annDR[facility] ZZKBVA3483-18-71 19:12:00Positive *ABN*(05/03/18 2:12 PM)[facility]annDR[facility] WUIRZF0775-99-88 19:12:00Negative *NA*(05/03/18 2:12 PM)[facility] HermannCARDIAC AVHRXLT0924-83-56 16:01:45<0.02[facility]annCARDIAC UBKRFAO7859-94-13 08:45:001.2[facility] HermannCARDIAC DARKBCF4252-25-34 08:45:002.2[facility] CARDIAC JRQNNHE5442-68-89 08:45:00<0.02[facility] HermannCARDIAC SCIFMAL0458-83-13 08:45:79037Xcapzcjd HermannCHEM UGXTJ9871-97-40 08:45:0042[facility] HermannCHEM CNPLT6388-91-85 08:45:0098[facility] HermannCHEM YLZUN1405-63-11 08:45:000.6 [facility]annCHEM KVSBP7803-73-53 08:45:0097[facility] HermannCHEM PANEL 2016-02-15 08:45:0010[facility] HermannCHEM KFIEA4914-27-31 08:45:003.1[facility] HermannCHEM BXZDQ5674-19-79 08:45:006.8[facility] HermannCHEM CVFFF2345-52-07 08:45:003.7[facility] HermannCHEM WVIOP8313-45-03 08:45:001.2[facility] HermannCHEM DWUAK7600-42-98 08:45:0055[facility]annCHEM WITRK7613-87-55 08:45:55378 [facility]annCHEM EROCI5802-88-21 08:45:009[facility]annCHEM PANEL 2016-02-15 08:45:000.92[facility] HermannCHEM MGFGC1513-93-21 08:45:33415Gqoeanjc HermannCHEM KHPOG3065-54-47 08:45:004.1[facility] HermannCHEM NKEUN7936-07-88 08:45:0026[facility] HermannCHEM WZRMR4256-55-05 08:45:0099[facility]annCHEM YZPID2497-40-43 08:45:0015.1[facility] HermannCHEM MJEHF4761-90-60 08:45:008.0 [facility] UgiwblaRHOFTCSBYN6983-67-15 08:45:000.2[facility] HermannHEMATOLOGY 2016-02-15 08:45:000.1[facility] VvbpgccOTIVFBGDNI0812-12-39 08:45:004.5[facility] UdwbibjMOLHFEWDFA1927-28-50 08:45:001.4[facility] UzsvwmpMJIMVORFHJ4122-83-39 08:45:002.3[facility] YrqyuexUYBTUBRTOY4441-19-92 08:45:000.5[facility] PKKQMEAJEM5169-30-58 08:45:0059.3[facility] AtehiknEJAJYXWUIZ3791-79-75 08:45:00 2.8[facility] MfwflsuBERZLLYGFS7668-39-57 08:45:005.9[facility] HermannHEMATOLOGY 2016-02-15 08:45:0030.6[facility] CgzoekaDOCEDLNAVR5812-33-26 08:45:00* Test Item Value Reference Range Interpretation Comments MCH (test code = MCH) 30.9 pg 27.0-31.0 [facility] RaywkdeRJEXWYNRZN6451-51-30 08:45:0041.6[facility] HermannHEMATOLOGY 2016-02-15 08:45:0089.2[facility] AgsauqqFAYJJJGEYW4393-22-21 08:45:0014.4[facility] GqcugjhSUTOLEAKSX1186-48-28 08:45:004.66[facility] ZczwvusPNGTJVYGTC4030-94-86 08:45:007.7[facility] JhnbjtiMYZLMIYALF5389-41-79 08:45:0013.6[facility] YDLKXIFVKI1032-84-27 08:45:91961Rlssscrn XqnofctWJKHLAAGTH5849-00-96 08:45:00 10.1[facility] IxcccgkQBTCAZRUSY4146-37-15 08:45:0034.7[facility] HermannSPECIAL WRFROFUXQ9328-29-84 08:45:008.7[facility] HermannCARDIAC JFJWZVW3036-63-49 01:46:00<0.02[facility] HermannCARDIAC WBOUYYF5180-03-49 01:46:53723Gkilogdn HermannCARDIAC YRNBCCI9098-83-31 01:46:001.1[facility]annCARDIAC ENZYMES 2016-02-15 01:46:002.3[facility] HermannDRUG MELXNH1447-59-83 20:05:00See Note (02/14/16 3:05 PM)[facility]annDRUG LFTEED3207-96-44 20:05:00Positive *ABN*(02/14/16 3:05 PM)[facility]annDRUG TXKITV6429-36-62 20:05:00Negative *NA*(02/14/16 3:05 PM)[facility]annDRUG BMYCDF6624-08-22 20:05:00Negative *NA*(02/14/16 3:05 PM)[facility]annDRUG YGHYVQ5928-85-55 20:05:00Positive *ABN*(02/14/16 3:05 PM)[facility]annDRUG MGRVCO9277-35-99 20:05:00Negative *NA*(02/14/16 3:05 PM)[facility]annDRUG KRPCMH3992-29-18 20:05:00Negative *NA*(02/14/16 3:05 PM)[facility]annDRUG HQYFPZ1229-50-95 20:05:00Negative *NA*(02/14/16 3:05 PM)[facility]annURINE AND CVOSV1420-64-54 20:05:00Negative (02/14/16 3:05 PM)[facility] AND WHNJB4839-62-48 20:05:000.2[facility]annUR[facility] AND DJOFT1005-25-98 20:05:00Negative *NA*(02/14/16 3:05 PM)[facility] AND KTJXD6575-82-72 20:05:00Negative *NA*(02/14/16 3:05 PM)[facility] AND LLLAA7914-18-83 20:05:00Clear (02/14/16 3:05 PM)[facility] AND JGGWX3010-10-09 20:05:00Yellow *NA*(02/14/16 3:05 PM)[facility] AND ZQSEJ6899-36-20 20:05:00* Test Item Value Reference Range Interpretation Comments UA pH (test code = UA pH) 5.5 1 5.0-8.0 [facility] JXFGR4709-80-26 20:05:00Negative (02/14/16 3:05 PM) [facility] HMBOW1840-12-05 20:05:00>=1.030 *ABN*(02/14/16 3:05 PM) [facility] CWZJM6095-91-34 20:05:00Negative (02/14/16 3:05 PM) [facility] YHUGB0499-88-86 20:05:00Negative (02/14/16 3:05 PM) [facility] KVGYN2336-59-62 20:05:00Performed (02/14/16 3:05 PM) [facility]annCARDIAC QEHJRDK0996-34-04 19:28:76440Ebkgojdp HermannCARDIAC VWHGJEG1870-40-52 19:28:003.3[facility] HermannCARDIAC UTQGGMJ6640-31-74 19:28:00< 0.02[facility]annCARDIAC NHYJIPH3009-86-58 19:28:001.1[facility] HermannCHEM UOPEX0199-38-59 19:28:0073[facility] HermannCHEM AIZNK0289-19-41 19:28:003.5 [facility] HermannCHEM HEHNY4661-27-56 19:28:001.1[facility] HermannCHEM PANEL 2016-02-14 19:28:007[facility] HermannCHEM NOAMK2402-67-34 19:28:000.2[facility] HermannCHEM VFUQW9542-26-60 19:28:95014Eicspaqf HermannCHEM UFNTN9196-46-33 19:28:0028[facility] HermannCHEM BNRNT2835-92-83 19:28:0051[facility] HermannCHEM GCSFB2696-72-95 19:28:003.7[facility] HermannCHEM QFXWW0107-12-72 19:28:0012.6 [facility] HermannCHEM KTRIY9379-65-59 19:28:008.2[facility] HermannCHEM PANEL 2016-02-14 19:28:0024[facility] HermannCHEM CODUK5045-13-17 19:28:37807Sgupdckh HermannCHEM JSUZI4661-60-08 19:28:003.6[facility] HermannCHEM CRAWZ3267-55-18 19:28:007.2[facility] HermannCHEM PUDKF2854-80-01 19:28:91671Izdzuqtb HermannCHEM YKTOT2144-70-57 19:28:001.18[facility] HermannCHEM CLSSI1722-73-07 19:28:008 [facility] HermannCHEM JBIOI8662-14-26 19:28:24116Ewlnoahb HermannHEMATOLOGY 2016-02-14 19:28:0034.5[facility] CpluvpiXSVGBMYEJG9816-17-73 19:28:0013.7[facility] AadayycXYGZXMPWTL6500-71-60 19:28:25583Zpumhjif KwbdrqhFHUDTTWUMM8837-85-16 19:28:0010.0[facility] RmmesioFBEKZJLZAA8532-45-99 19:28:004.74[facility] XUPCIISPNX4480-50-57 19:28:0042.7[facility] DonishgVZBMRZGOCK9053-44-56 19:28:00* Test Item Value Reference Range Interpretation Comments MCH (test code = MCH) 31.1 pg 27.0-31.0 [facility] SzhrmdtANKPKFRTUS7758-18-04 19:28:0014.7[facility] HermannHEMATOLOGY 2016-02-14 19:28:0090.1[facility] RljrapvXOUSSGFXEG9054-13-33 19:28:008.7[facility] ExgbcjfPIXBWMWTOG2581-71-05 19:28:000.90[facility] JphcufdFFCIXKFNCO7758-30-12 19:28:00* Test Item Value Reference Range Interpretation Comments PT (test code = PT) 12.4 s 12.0-14.7 [facility] BukdlltZNDNVAJKOH0179-32-89 19:28:00* Test Item Value Reference Range Interpretation Comments PTT (test code = PTT) 31.8 s 22.9-35.8 [facility] XrrgyltEPBLEFKDHG5901-29-07 19:28:0067.7[facility] HermannHEMATOLOGY 2016-02-14 19:28:0023.2[facility] HkfltgmOMDXSJPWDM1601-99-21 19:28:006.4[facility] RxiuvscHSFIBVCVTX7689-04-50 19:28:002.0[facility] SuylxmdIROBQNEXJV7013-85-24 19:28:000.7[facility] TuqsjnxGFQHFJWQSM1510-22-65 19:28:002.0[facility] VLOPVPTTTZ0070-28-76 19:28:000.2[facility] GqreekoWJVBLGSCWM3064-27-49 19:28:005.9 [facility] LshdspwMKANFOIIKK8350-33-70 19:28:000.6[facility] HermannHEMATOLOGY 2016-02-14 19:28:000.1[facility] JzesbroYQUPQSNJYX5184-98-48 19:28:00Negative (02/14/16 2:28 PM)[facility] SmbysxeSCPTDP5481-31-31 19:28:0012.82[facility] CGEKYU7600-01-83 19:28:0022[facility] FmqjuuoFOYXTZ0520-17-36 19:28:485161Jxxegxtt MbeesekZMNDRN9109-74-32 19:28:27000Sdjfyerd HtexikvNLXVVL1685-38-22 19:28:00See Note 2*NA*(02/14/16 2:28 PM)[facility] ExeowfzPOVQIFCZBF1468-03-90 19:28:00<0.003 [facility] UpmkeqvAQBUARMJNX1120-72-49 19:28:00<3[facility] HermannCARDIAC ENZYMES 2015-11-12 13:43:00<0.02[facility] HermannCARDIAC GRDTOQO5569-78-30 12:05:00<0.02 [facility]annCARDIAC RTGURPN6113-88-35 12:05:002.4[facility] HermannCARDIAC AFLGFOO7213-92-55 12:05:04380Nqqxnclz HermannCARDIAC EXYTTGA0194-29-60 12:05:00 1.3[facility] HermannCHEM JBIEF7358-60-81 12:05:0064[facility] HermannCHEM PANEL 2015-11-12 12:05:001.31[facility] HermannCHEM QQILQ7661-58-08 12:05:008[facility] HermannCHEM RIRZX8224-26-56 12:05:53089Fpzfvdyd HermannCHEM WROWM3428-48-69 12:05:0011.8[facility] HermannCHEM CUKZO3835-00-01 12:05:000.2[facility] HermannCHEM UFOES9898-18-12 12:05:74428Vmagagvt HermannCHEM LGSTR7544-25-32 12:05:007.5 [facility] HermannCHEM GVBZB6692-02-52 12:05:008.4[facility] HermannCHEM PANEL 2015-11-12 12:05:0024[facility] HermannCHEM EJELV8136-81-16 12:05:47880Cmzacuyk HermannCHEM CCKUI9435-71-19 12:05:003.8[facility] HermannCHEM VDELJ6856-63-03 12:05:003.2[facility] HermannCHEM UTJCU6626-63-29 12:05:001.3[facility] HermannCHEM VWYIK3355-61-47 12:05:0018[facility] HermannCHEM JQWIL9749-75-46 12:05:006[facility] HermannCHEM VTDQF7325-90-89 12:05:0037[facility] HermannCHEM XUQAE2418-68-23 12:05:004.3[facility] HermannCHEM PHDQG0006-86-28 12:05:0073[facility] HermannCHEM GWZGZ9365-20-37 12:05:68587Dgqttbjl QcbvpyeBLSXRTXBID2319-79-52 12:05:00* Test Item Value Reference Range Interpretation Comments PTT (test code = PTT) 31.9 s 22.9-35.8 [facility] JxzrzltXCFLCBMQZW9515-28-06 12:05:00* Test Item Value Reference Range Interpretation Comments PT (test code = PT) 12.1 s 12.0-14.7 [facility] ZrcxrukRGFQFPVTTV1554-16-09 12:05:000.87[facility] HermannHEMATOLOGY 2015-11-12 12:05:42959Fbtsxizz OpeztxhNMDJXZZXUO0442-72-83 12:05:0010.2[facility] LfkykwvBWBBJCXBBJ1827-11-96 12:05:0033.6[facility] JwytjypHQOONCKUMC7325-14-51 12:05:00* Test Item Value Reference Range Interpretation Comments MCH (test code = MCH) 29.9 pg 27.0-31.0 [facility] XkdpvwiXMZBGBLGHH8391-47-73 12:05:0089.2[facility] HermannHEMATOLOGY 2015-11-12 12:05:0014.0[facility] PomptihNUHUEWLIGK0530-11-96 12:05:0044.5[facility] BwhxbbxYGBXMCHWTM7304-06-04 12:05:0014.9[facility] ZoaotpkBOFLOQYMQX2844-06-92 12:05:004.99[facility] YyytafnGMFEDNDUGV0268-65-80 12:05:0011.6[facility] GMHDBWAFCI3828-21-55 12:05:006.2[facility] PjnropaJHTMPOZVJZ1309-64-93 12:05:00 64.7[facility] AmvtqooXWJERTIUYZ1612-47-67 12:05:0026.1[facility] HermannHEMATOLOGY 2015-11-12 12:05:000.1[facility] TgcdafaFLKPEPSHKW8440-85-34 12:05:000.2[facility] KhnzrnjGLDYFOZPHY0931-79-27 12:05:000.7[facility] MppawtuMMFTJBCEKU2389-70-03 12:05:003.0[facility] ZdmdekhULXQNIKOWQ1119-86-97 12:05:007.5[facility] XDPBXNDLJT4336-33-31 12:05:001.3[facility] NtvfuecADOYSBMLGR8667-83-83 12:05:001.7 [facility] MfpwbanEVVWLRNULT0187-09-44 12:05:00Negative (11/12/15 6:05 AM)[facility] FEMRW2580-75-41 12:05:00None Seen (11/12/15 6:05 AM)[facility] SENNC6727-98-46 12:05:00Performed (11/12/15 6:05 AM)[facility] QFIYT8317-08-07 12:05:00Negative *NA*(11/12/15 6:05 AM)[facility] QOOIZ4225-06-48 12:05:00Negative (11/12/15 6:05 AM)[facility] ANEGD8638-98-77 12:05:000.2[facility]UR[facility] STOOL 2015-11-12 12:05:00Negative (11/12/15 6:05 AM)[facility] STOOL 2015-11-12 12:05:00Negative (11/12/15 6:05 AM)[facility] STOOL 2015-11-12 12:05:00Negative *NA*(11/12/15 6:05 AM)[facility] AND STOOL 2015-11-12 12:05:00* Test Item Value Reference Range Interpretation Comments UA pH (test code = UA pH) 6.0 1 5.0-8.0 [facility] NEIWI2749-56-22 12:05:00Negative (11/12/15 6:05 AM) [facility] RFSTA4671-01-33 12:05:00Yellow *NA*(11/12/15 6:05 AM) [facility] PWWDG5670-18-49 12:05:00Clear (11/12/15 6:05 AM) [facility] NKPJA0385-70-14 12:05:00* Test Item Value Reference Range Interpretation Comments UA Spec Grav (test code = UA Spec Grav) 1.010 1 [facility] HermannCHEM WCLLQ6137-95-11 17:07:53416Wydzxmcv HermannCHEM PANEL 2015-06-23 17:07:0071[facility] HermannCHEM QADST8816-61-71 17:07:000.3[facility] HermannCHEM NOHKA6247-24-16 17:07:30723Dnjevnbo HermannCHEM NWAXL4258-96-33 17:07:0010[facility] HermannCHEM TTKSV8793-96-36 17:07:0025[facility] HermannCHEM UTTVF8777-01-26 17:07:0068[facility] HermannCHEM CTRCI1729-59-13 17:07:0049 [facility] HermannCHEM CJZFZ4847-83-47 17:07:003.8[facility] HermannCHEM PANEL 2015-06-23 17:07:38992Vzwvipqo HermannCHEM AVQDX5198-24-69 17:07:0024[facility] HermannCHEM THUMO7172-15-33 17:07:008.2[facility] HermannCHEM HUKZT9568-34-42 17:07:007.2[facility] HermannCHEM QTDJM6619-98-84 17:07:001.2[facility] HermannCHEM SIQJL3432-28-18 17:07:19895Cgmvxnhg HermannCHEM TWUIU7372-54-59 17:07:003.7 [facility]annCHEM WXDTA6877-88-52 17:07:003.4[facility] HermannCHEM PANEL 2015-06-23 17:07:0011.7[facility] HermannCHEM HNDTV7100-03-40 17:07:008[facility] HermannCHEM MQMKX6355-33-84 17:07:001.1[facility] EaxoozaNHDOIMIDZP9342-91-74 17:07:005.4[facility] MelmkpeSGWOMXZOMY0858-31-42 17:07:001.9[facility] VSCIUXILPB8983-97-67 17:07:000.2[facility] BycoiiiAEYLTBVIMB2925-88-84 17:07:000.2 [facility] LduzgeiVZEVJKEXTZ0709-47-35 17:07:000.4[facility] HermannHEMATOLOGY 2015-06-23 17:07:000.0[facility] KtbxuztQPRNIBJCBI8266-46-51 17:07:0068.3[facility] RaozibwUMFQQBXLJP3643-86-38 17:07:002.6[facility] KejnaaxWZJTRBPCTW6929-99-75 17:07:0023.7[facility] HrbhntjTHVHBMJECF7524-67-57 17:07:005.2[facility] CLWHHVICAY4861-00-03 17:07:0015.4[facility] YxhotliNHBMZIWROR9384-28-56 17:07:00 33.5[facility] CimvnntPENMLOIYOX3579-16-38 17:07:009.6[facility] HermannHEMATOLOGY 2015-06-23 17:07:55820Vvqkdpli LsqxwpdWMEQOACULL8375-99-59 17:07:0040.9[facility] KzwpnkuVRCJCXCQNG2483-35-77 17:07:0087.9[facility] WfmrdnhBQVFSEJDZD3586-36-73 17:07:00* Test Item Value Reference Range Interpretation Comments MCH (test code = MCH) 29.5 pg 27.0-31.0 [facility] IbixellNARYWMVSPY2650-49-86 17:07:0013.7[facility] HermannHEMATOLOGY 2015-06-23 17:07:007.9[facility] ZuzbnkgXVPXCMWPBX2052-74-05 17:07:004.65[facility] HermannCARDIAC TAWKHGD3498-33-59 17:11:96448Anbllsvr HermannCARDIAC ENZYMES 2015-02-03 17:11:00<0.02[facility] HermannCARDIAC GAAMXGN6888-83-22 17:11:001.6 [facility]annCARDIAC ENMFOHE4265-45-09 17:11:001.5[facility] HermannCHEM PANEL 2015-02-03 17:11:0072[facility] HermannCHEM NPLMP2841-95-20 17:11:001.2[facility] XsaqvlsRELNKOFALA7573-87-77 17:11:08330Nmffhlsb AxrznsnQPAQLYQKRC3590-95-75 17:11:00* Test Item Value Reference Range Interpretation Comments PTT (test code = PTT) 34.7 s 22.9-35.8 [facility]annCARDIAC FERJXNI0560-27-93 11:28:07899Bvzkmzty HermannCARDIAC FSGZBMA8043-21-14 11:28:00<0.02[facility] HermannCARDIAC BPTJKAC1916-97-37 11:28:001.1[facility] HermannCARDIAC FMYQCZO3654-27-02 11:28:001.3[facility] CARDIAC YNKVRPT3774-14-96 04:00:13044Befsakmy HermannCARDIAC YHALKWC4610-26-34 04:00:001.8[facility] HermannCARDIAC CXASLDD3597-61-46 04:00:00<0.02[facility] HermannCARDIAC BSGJXMP0493-09-59 04:00:001.2[facility] HermannELECTROLYTES 2015-02-03 04:00:0013.0[facility] RktiwgiHDUPZIICBEPH0475-21-11 04:00:007.3 [facility] JkhvvsxBPAIEZUUHENH3182-57-40 04:00:003.9[facility] HermannELECTROLYTES 2015-02-03 04:00:008.1[facility] FpltvpdIHTMKSNPEXNV4438-83-15 04:00:009[facility] HuyyjjcJGDTWUBEURNW1455-11-30 04:00:001.6[facility] JhbaacsWVRDHSDAYJAD3824-35-97 04:00:26052Lajxdhax FuznwmnBSCONCQGIQDC8049-85-11 04:00:33139Tdpqoxma [facility] CPULJBCNVJLT9289-26-92 04:00:004.0[facility] SsoeoomRRCFJJYYSTVT8372-91-76 04:00:003.4[facility] RuvnuisOWYTHZOJCHCP0439-29-45 04:00:0090[facility] MJUFPKTMBBJW5492-70-33 04:00:001.1[facility] VkfezpsQHJHOJHDIZWW7690-82-53 04:00:0019[facility] UbgpfmqBHPGRUYKOTYO1068-05-61 04:00:000.3[facility] CDVCRCUNKXPZ4723-89-59 04:00:0025[facility] AusrztqGISRCPEHJLYF2057-83-39 04:00:00 14[facility] AdutiljKKHFNWLIJZCW1151-23-53 04:00:93447Wfybnvvc HermannELECTROLYTES 2015-02-03 04:00:0051[facility] AogtlcwVDBZVYPOXNDH8704-26-25 04:00:0030[facility] FpsfkvgNONUMPESYL6040-76-97 04:00:009.8[facility] KrdbfeeEWTYHZYRWP8560-84-56 04:00:0033.4[facility] OqwwdliBCIPQDFWQP6715-39-88 04:00:00* Test Item Value Reference Range Interpretation Comments MCH (test code = MCH) 27.8 pg 27.0-31.0 [facility] FfjhmrzEXNQYWZBVX3826-16-52 04:00:0015.7[facility] HermannHEMATOLOGY 2015-02-03 04:00:83250Wtrzzyqw GqlnwlqJXOEBDKHFT9979-80-13 04:00:004.91[facility] GfuafcdFUHOFIRHAN3357-72-93 04:00:009.8[facility] EbahmfmRWBNJZPMSA9437-89-04 04:00:0013.6[facility] OqrtijjJMFNZFKXUN7210-67-02 04:00:0083.2[facility] TJJBCMLBTU8293-92-00 04:00:0040.9[facility] EvxyusiWKMSVRVKEQ8911-69-59 04:00:00 0.2[facility] XwdudewJODOHANYRY4630-32-07 04:00:000.1[facility] HermannHEMATOLOGY 2015-02-03 04:00:0023.0[facility] MafpejeIYSABGNEYX2607-93-96 04:00:0069.0[facility] TmnhjcpSQZDIEURAZ5985-72-75 04:00:006.7[facility] VmgmdplOHXLPKVGHP9772-63-06 04:00:000.9[facility] PgyfmjjVJARHRUOTB7417-41-21 04:00:000.5[facility] XGTEBHJKOA2654-63-32 04:00:002.3[facility] WpeljyaIVFCJPRZHJ1224-54-39 04:00:005.1 [facility] XgbzkkbRIEYGVNSVQ3194-16-84 04:00:002.0[facility] HermannCARDIAC ENZYMES 2014-11-21 05:01:001.3[facility] HermannCARDIAC WVHAZNO5046-29-77 05:01:00<0.02 [facility] HermannCARDIAC EIAQVLE8718-94-29 05:01:001.8[facility] HermannCARDIAC GBFCHHI3888-60-22 05:01:48363Nrjevtzt HermannCHEM RVFZN1950-60-90 05:01:0080 [facility] HermannCHEM WRZGB7769-44-72 05:01:0097[facility] HermannCHEM PANEL 2014-11-21 05:01:000.2[facility]annCHEM HUPQD1646-85-66 05:01:0023[facility]annCHEM OESJJ7778-01-44 05:01:0014[facility]annCHEM YBUKV3502-09-07 05:01:003.8[facility]annCHEM FPAUZ5428-81-10 05:01:70209Uiqrthoe HermannCHEM EDTOT7771-87-80 05:01:64779Jolymhlq HermannCHEM SDUPL6054-71-19 05:01:0024 [facility]annCHE[facility] CBNFX5423-91-07 05:01:0011.8[facility]annCHEM PANEL 2014-11-21 05:01:007.8[facility]annCHEM ZBWYZ4980-63-34 05:01:0013[facility]annCHEM QUUAD5758-18-94 05:01:006.7[facility]annCHEM YVPAY4390-66-96 05:01:003.1[facility]annCHEM JSEAZ0805-22-45 05:01:003.6[facility]annCHEM AFRQH5027-62-66 05:01:001.2[facility]annCHEM XRGGB1206-10-80 05:01:001.1 [facility]annCHE[facility] TKEKR4606-26-82 05:01:78575Nlimoaqv HermannCHEM PANEL 2014-11-21 05:01:0014[facility] EzodzvzIWKOAKSXQG6531-84-44 05:01:006.9[facility] ZyvgcslHPXRKXAWWA0340-47-65 05:01:0029.9[facility] DarnbqvVZOXTCSJAF6692-06-69 05:01:000.2[facility] CoeaszsUGOBMPXNVL5639-12-66 05:01:000.1[facility] BMAZKUBNIN1781-35-92 05:01:004.8[facility] EuzcocdCNVIEJBGAU8426-81-28 05:01:001.9 [facility] UmpcbqbVVPJRKHEUU2330-97-50 05:01:002.4[facility]annHEMATOLOGY 2014-11-21 05:01:000.9[facility] LgkfonmMVPITSXOQJ2925-97-48 05:01:000.5[facility] TbgonbpFTQENFMOWK7226-60-19 05:01:0060.4[facility] VgyqsdxHDVVTAPOFE7890-47-69 05:01:0038.8[facility] JwfcuydXLQPFHDQXZ6718-09-63 05:01:0083.1[facility] QHNHWSAZEN3134-16-03 05:01:004.67[facility] MqimvvuSBEWIHXGLE0351-07-81 05:01:00 7.9[facility] MkbwveqOIACHTRIVR7687-27-14 05:01:0013.1[facility]annHEMATOLOGY 2014-11-21 05:01:009.7[facility] ZdahpkfJBFXITRVLK8792-60-39 05:01:00* Test Item Value Reference Range Interpretation Comments MCH (test code = MCH) 28.1 pg 27.0-31.0 [facility] YrtehdsDPTPASIWNZ7062-00-99 05:01:0014.5[facility]annHEMATOLOGY 2014-11-21 05:01:72610Piympgkh BrytusvZRPSPGWGNH8417-67-67 05:01:0033.8Meidrial Kip
--- NOTE | 2020-06-27 14:11 | NUR ---
Verified SUMMER Lopez pulled 5 Units of insulin.
[2020-06-27] MEDS ORDERED: POLYETHYLENE GLYCOL 3350 17 GM PACK PO PRN (14:45)
[2020-06-27] MEDS ORDERED: METOPROLOL TARTRATE INJ 1 MG/ML VIAL IV PRN (14:45)
[2020-06-27] MEDS ORDERED: TEMAZEPAM 7.5 MG CAP PO PRN (14:45)
[2020-06-27] MEDS ORDERED: ACETAMINOPHEN 325 MG TAB PO PRN (14:45)
[2020-06-27] MEDS ORDERED: DEXTROSE 50% SYRINGE 50 ML IV PRN (15:15)
[2020-06-27 16:02] VITALS: BP 132/81
--- NOTE | 2020-06-27 17:08 | Diagnostic Imaging Report ---
Examination: CT BRAIN WO CONTRAST History:Slurred speech; right facial droop. Comparison studies:None Technique: Axial images were obtained from the skull base to the vertex. Coronal and sagittal images reconstructed from the axial data. Dose modulation, iterative reconstruction, and/or weight based adjustment of the mA/kV was utilized to reduce the radiation dose to as low as reasonably achievable. Intravenous contrast: None Findings: Scalp: No abnormalities. Bones: No fractures, blastic or lytic lesions. Brain sulci: Appropriate for age. Ventricles: Normal in size and configuration. No hydrocephalus. Extra-axial space: No abnormalities. Parenchyma: No abnormal densities. No masses, hemorrhage, or acute or chronic cortical based vascular insults. Sellar/suprasellar region: No abnormalities. Craniocervical junction: Patent foramen magnum. No Chiari one malformation. Incidental findings: None. Impression: No acute intracranial abnormalities. Signed by: Dr. Nubia Warner M.D. on 06/27/2020 5:04 PM
[2020-06-27] MEDS: FAMOTIDINE 20 MG/2 ML VIAL IV SCH (17:25)
[2020-06-27] MEDS: DOCUSATE SODIUM 100 MG CAP PO SCH (17:25)
[2020-06-27] MEDS: INSULIN LISPRO 100 UNIT/1 ML 3ML VIAL SQ SCH ×2 (17:25→21:28)
[2020-06-27 17:57] VITALS: BP 132/81
--- NOTE | 2020-06-27 19:25 | NUR ---
Patient received sitting by bedside. AAO x 3. No complaints of pain. No signs of respiratory distress. Fall precautions implemented. Patient instructed to call for assistance when needed. Call light within reach.
[2020-06-27 20:00] VITALS: BP 132/87
[2020-06-27] MEDS ORDERED: ALBUTEROL/IPRATROPIUM 3 ML NEB NEB PRN (20:00)
[2020-06-27 21:00] VITALS: BP 132/87
[2020-06-27] MEDS ORDERED: INSULIN GLARGINE 100 UNITS/ML VIAL SQ SCH (21:00)
--- NOTE | 2020-06-27 21:00 | NUR ---
Urine specimen sent to lab for analysis.
[2020-06-27] MEDS: MORPHINE SULFATE 2 MG/ML SYR 1ML IV PRN (21:01)
--- NOTE | 2020-06-27 22:51 | Diagnostic Imaging Report ---
MRI BRAIN WO HISTORY: Right arm drift, slurred speech, right-sided weakness COMPARISON: Head CT 06/27/2020 TECHNIQUE: Sagittal T2, axial T2, axial T1, axial T2/FLAIR, axial gradient echo (or susceptibility weighted), coronal T2/FLAIR, and axial diffusion weighted MR images of the brain were obtained without contrast. Motion artifacts obscure some details. DISCUSSION: Please note that the lower medulla is incompletely imaged on diffusion-weighted imaging. Scalp/bone marrow: Unremarkable. Brain sulci: Appropriate for patient's age. Ventricles: Normal in size and configuration. No hydrocephalus. Extra-axial spaces: No masses or fluid collections. Parenchyma: No abnormal signal intensities. No mass, hemorrhage, or acute vascular insults. Vessels: Normal flow voids in major arteries and veins. Sellar/Suprasellar region: No abnormalities. Craniocervical junction: No abnormalities. Incidental findings: Moderate to severe right maxillary sinus polypoid mucosal thickening. Mild mucosal thickening in the left maxillary sinus and bilateral anterior ethmoid air cells. IMPRESSION: Motion artifacts obscure some details. The lower medulla is incompletely imaged on diffusion-weighted imaging. In spite of limitations: No acute intracranial abnormalities. Signed by: Dr. Romulo Franco M.D. on 06/27/2020 10:47 PM
--- NOTE | 2020-06-27 23:41 | History and Physical ---
PCP: [facility]. 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 Ming Ceballos. CONSULTING PHYSICIANS: Dr. Bradley Irwin with Cardiology and Dr. Idania Su with Neurology. CHIEF COMPLAINT: Right-sided chest pain. HISTORY OF PRESENT ILLNESS: The patient is a 55-year-old male, admitted from the [facility] with complaints of 2-day duration of right-sided sharp stabbing chest pain, that radiates to his right back. The patient denies any recent trauma, motor vehicle accident, work injury, etc. He denies any recent sick contacts or contact with anyone who has COVID. He reports that the pain is more severe with breathing and movement, rated 7/10 at rest and 10/10 with movement. 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 The morphine has helped his pain some, but has not alleviated it completely. PAST MEDICAL HISTORY: Myocardial infarction, hypertension, diabetes, systemic lupus erythematosus, hyperlipidemia, chronic back pain, distant history of seizures and being on Dilantin, diabetic neuropathy, back injury where he fell from a ladder with injury at and T2, COPD with use of albuterol at home. PAST SURGICAL HISTORY: Cardiac stent x2, outpatient steroid injections. PAST FAMILY HISTORY: Father due to [place], diabetes mellitus. Mother, hypertension, osteoporosis. He had 2 aunts, who had breast cancer. Two uncles with diabetes. Maternal grandfather, possible Alzheimer's dementia, at age 92. Paternal grandfather from [place]. Paternal grandmother from [place]. SOCIAL HISTORY: The patient is a current everyday smoker, smokes half a pack a day since age 19 until now. He smoked for 36 years, 18 pack-years. He admits to occasional alcohol use. Denies any illicit drug use. 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 He lives with his common-law , Lisy Medina. He denies any use of cane, walker, or assistive device. HOME MEDICATIONS: The patient states he will get a list of his home medications from his . He has been taking naproxen and gabapentin. REVIEW OF SYSTEMS: 14-point review of systems was completed. The patient denies any problems with ears, nose, throat, respiratory, genitourinary, psychiatric, gastrointestinal, musculoskeletal, allergic/immunological, hematologic/lymphatic systems. CONSTITUTIONAL: Chills at times in the afternoon, intentional weight loss of 24 pounds, went from 196 pounds to 172 pounds since December. EYES: Blurry vision last week due to blood glucose in the 300s and he states recently his fingerstick blood glucose was 478. INTEGUMENTARY: Little white spots on the chest and back. CARDIOVASCULAR: Chest pain as per history of present illness. Palpitations when taking stairs at work. Last bowel movement was this morning. NEUROLOGIC: Reports right-sided headache for the last 1-1/2 weeks. 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 ENDOCRINE: Known diabetic. He uses Levemir 4 units every morning and 6 units every evening. He was taken off metformin. He uses NovoLog regular insulin as well. PHYSICAL EXAMINATION: VITAL SIGNS: Blood pressure 132/81, temperature 97.8, pulse 76, respirations 20, oxygen saturation 96% on room air. Height 5 feet 6 inches. Weight 172 pounds. BMI of 28.08. GENERAL: Supine in bed, in no acute distress. LUNGS: Clear to auscultation. Respiratory pattern even and unlabored. No supplemental oxygen. HEENT: EOMI. NECK: Supple. No thyromegaly, lymphadenopathy, or JVD. CARDIOVASCULAR: Regular rate and rhythm without murmur. ABDOMEN: Bowel sounds positive. Soft, nontender. No guarding. EXTREMITIES: No pitting edema. No clubbing, cyanosis, or signs of DVT. NEUROLOGICAL: GCS 15. Awake, alert, and oriented to person, place, time, and situation. No noted problems with remote or short-term memory loss. Bedside neurological examination revealed that tongue is midline when he sticks it out. He does have drift of the right arm. There is a weak web application dev specialist on the right side in comparison to the left. He does have slurred speech and right facial drooping. LABORATORY DATA: Fingerstick blood glucose levels 286 and 285. Coronavirus PCR is pending. WBC 7.9, hemoglobin 14.7, hematocrit 42.4, and platelets 243. Sodium 138, potassium 3.5, serum CO2 of 24, chloride 100, glucose 380, calcium 9.3, BUN 11, creatinine 1.0, alkaline phosphatase 120, ALT 19, AST 17, total bilirubin 0.7, albumin 3.5, total protein 7.4. CK-MB 2.5, myoglobin 78.8, troponin I less than 0.05. IMAGING/OTHER: A 12-lead EKG with printed interpretation, normal sinus rhythm, ventricular rate 78, incomplete right bundle-branch block, left anterior fascicular block. Chest x-ray negative. CT of the brain negative. MRI of the brain pending. ASSESSMENT AND PLAN: 1. Right-sided chest pain, rule out acute coronary syndrome (with history coronary artery disease, myocardial infarction, cardiac stents x2, diabetes mellitus, active smoker, hyperlipidemia). Troponin level less than 0.5. Per ECG, incomplete right bundle-branch block and left anterior fascicular block. Cardiology consulted. Continue morphine 2 mg q.4 hours p.r.n. for pain. Continue aspirin. Troponin within normal limits. We will hold p.r.n. nitroglycerin for now given neurologic presentation. 2. Possible transient ischemic attack/cerebrovascular accident, right-sided headache, distant history of seizures. CT of the brain negative. Follow up on MRI of the brain results. Neurology consulted. Neuro checks every 2 hours. Physical Therapy eval and treat. 3. Uncontrolled type 2 diabetes mellitus with hyperglycemia and neuropathy. Serum glucose 380. Fingerstick fasting sugar blood glucose before meals and at bedtime. Resume home dose of Lantus, low-dose sliding scale insulin. Hemoglobin A1c in the morning. 4. Controlled hypertension. Blood pressure 132/81. Monitor. 5. Systemic lupus erythematosus. Physical Therapy evaluation and treatment. 6. Hyperlipidemia. Lipid panel in a.m. Resume home dose of statin if applicable. 7. Chronic obstructive pulmonary disease without acute exacerbation, active smoker with 18 pack-years. DuoNebs p.r.n. Encourage incentive spirometry and encourage smoking cessation. Currently not requiring any supplemental oxygen. 8. Acute hypokalemia. Potassium level 3.5. Replete with 40 mEq of potassium chloride orally once, assess magnesium in the morning. 9. Prophylaxis. Pepcid, SCDs. History and physical, billing code [id number]. Time spent 70 minutes. Dictated by Enoc Todd NP MD WARNER Abdalla/JAREDL /[id number]
[2020-06-28] VITALS (8 sets, daily range): BP systolic 123–153; BP diastolic 63–86
[2020-06-28] MEDS: MORPHINE SULFATE 2 MG/ML SYR 1ML IV PRN ×5 (02:21→21:55)
[2020-06-28 05:27] LABS: BASOPHILS # (AUTO) 0.1 (0.0-0.1); BASOPHILS % 0.9 % (0.0-1.0); EOSINOPHILS # (AUTO) 0.2 (0.0-0.4); EOSINOPHILS % 1.9 % (0.0-6.0); HEMATOCRIT 39.9 % (38.2-49.6); HEMOGLOBIN 13.5 g/dL (14.0-18.0); LYMPHOCYTES # (AUTO) 2.3 (1.0-3.2); LYMPHOCYTES % 29.8 % (18.0-39.1); MEAN CORPUSCULAR HEMOGLOBIN 28.7 pg (28-32); MEAN CORPUSCULAR HGB CONC 33.8 g/dL (31-35); MEAN CORPUSCULAR VOLUME 84.7 fL (81-99); MONOCYTES # (AUTO) 0.5 (0.2-0.8); NEUTROPHILS # (AUTO) 4.7 (2.1-6.9); NEUTROPHILS % 60.9 % (38.7-80.0); PLATELET COUNT 216 x10e3/uL (140-360); RED BLOOD COUNT 4.71 x10e6/uL (4.3-5.7); RED CELL DISTRIBUTION WIDTH 13.5 % (11.7-14.4)
[2020-06-28 06:02] LABS: ALANINE AMINOTRANSFERASE 13 IU/L (0-55); ALBUMIN 3.7 g/dL (3.5-5.0); ALBUMIN/GLOBULIN RATIO 1.2 (0.8-2.0); ALKALINE PHOSPHATASE 96 IU/L (40-150); ANION GAP 15.9 mmol/L (8-16); BLOOD UREA NITROGEN 9 mg/dL (7-26); BUN/CREATININE RATIO 11 (6-25); CALCIUM 8.5 mg/dL (8.4-10.2); CARBON DIOXIDE 21 mmol/L (22-29); CHLORIDE 100 mmol/L (98-107); CREATININE, SERUM 0.83 mg/dL (0.72-1.25); EST GLOMERULAR FILTRATION RATE > 60 ML/MIN (60-); GLUCOSE 244 mg/dL (74-118); MAGNESIUM 1.6 MG/DL (1.3-2.1); POTASSIUM 3.9 mmol/L (3.5-5.1); SODIUM 133 mmol/L (136-145)
[2020-06-28 06:12] LABS: THYROID STIMULATING HORMONE 2.681 uIU/mL (0.350-4.940)
[2020-06-28] MEDS ORDERED: LISINOPRIL10 MG PO (06:13)
[2020-06-28] MEDS ORDERED: GABAPENTIN300 MG PO (06:13)
[2020-06-28] MEDS ORDERED: CARVEDILOL3.125 MG PO (06:13)
[2020-06-28] MEDS ORDERED: LIPITOR20 MG PO (06:13)
[2020-06-28] MEDS ORDERED: ALBUTEROL0.63 MG/3 (06:13)
[2020-06-28] MEDS ORDERED: NAPROXEN250 MG PO (06:13)
[2020-06-28] MEDS ORDERED: ISOSORBIDE MONO30 MG PO (06:13)
[2020-06-28] MEDS ORDERED: BRILINTA60 MG PO (06:28)
[2020-06-28 06:29] LABS: CREATINE KINASE MB 1.6 ng/mL (0-5.0)
[2020-06-28 06:43] LABS: CHOL/HDL RATIO 8.5 (3.9-4.7); CHOLESTEROL 288 MD/DL (0-199); HDL CHOLESTEROL 34 MG/DL (40-60); TRIGLYCERIDES 1275 MG/DL (0-149)
--- NOTE | 2020-06-28 07:00 | NUR ---
Walking rounds done. Bedside report given to oncoming nurse.
[2020-06-28] MEDS ORDERED: PROAIR HFA INH8.5 GM (07:17)
[2020-06-28] MEDS ORDERED: SPIRIVA18 MCG INH (07:17)
[2020-06-28] MEDS: ASPIRIN 325 MG TAB EC PO SCH (09:10)
[2020-06-28] MEDS: DOCUSATE SODIUM 100 MG CAP PO SCH ×2 (09:10→16:20)
[2020-06-28] MEDS: FAMOTIDINE 20 MG/2 ML VIAL IV SCH ×2 (09:10→16:20)
[2020-06-28] MEDS: INSULIN LISPRO 100 UNIT/1 ML 3ML VIAL SQ SCH ×4 (09:10→21:00)
[2020-06-28 11:29] LABS: CLARITY,URINE CLEAR (CLEAR); COLOR,URINE YELLOW (YELLOW); LEUKOCYTE ESTERASE ,URINE NEGATIVE (NEGATIVE); NITRITE,URINE NEGATIVE (NEGATIVE); PROTEIN,URINE DIPSTICK NEGATIVE (NEGATIVE)
[2020-06-28 11:30] LABS: BACTERIA,URINE RARE /HPF; BILIRUBIN,URINE NEGATIVE (NEGATIVE); KETONES,URINE NEGATIVE (NEGATIVE); RBC,URINE 0-5 /HPF (0-5); URINE UROBILINOGEN 0.2 mg/dL (0.2 - 1); WBC,URINE (MAN) 0-5 /HPF (0-5)
[2020-06-28 11:31] LABS: EPITHELIAL CELLS,URINE FEW /LPF
--- NOTE | 2020-06-28 11:35 | Diagnostic Imaging Report ---
EXAM: CT Chest WITH contrast 06/28/2020 10:59 AM INDICATION: Chest pain concerning for pulmonary embolism. COMPARISON: Chest x-ray on 06/27/2020 TECHNIQUE: Chest was scanned utilizing a multidetector helical scanner from the lung apex through the level of the adrenal glands with administration of IV contrast. Coronal and sagittal reformations were obtained. Routine protocol was performed. IV CONTRAST: 100 mL of Omnipaque 300 COMPLICATIONS: None RADIATION DOSE: Total DLP: 524.05 mGy*cm Estimated effective dose: (DLP x 0.014 x size factor) mSv CTDIvol has been reviewed. It is below the limits set by the Radiation Protocol Committee (RPC). Dose modulation, iterative reconstruction, and/or weight based adjustment of the mA/kV was utilized to reduce the radiation dose to as low as reasonably achievable. FINDINGS: LINES/ TUBES: None. VASCULAR: There are no filling defects in the pulmonary arteries to the segmental level the pulmonary trunk has normal caliber measuring 2.8 cm. The ascending and descending aorta have normal enhancement and caliber measuring approximately 3.1 cm and 2.7 cm, respectively. There is minimal atherosclerotic calcification of the thoracic aortic arch. LUNGS AND AIRWAYS: The lungs are unremarkable. Airways are normal. PLEURA: The pleural spaces are clear. HEART AND MEDIASTINUM: The thyroid gland is normal. No mediastinal, hilar or axillary lymphadenopathy. The heart is normal in size with mild atherosclerotic calcification of coronary vessels. There is no pericardial effusion. UPPER ABDOMEN: There is stranding around the partially imaged kidneys. There are prominent lymph nodes in the david hepatis measuring up to 8 mm the remainder of the upper abdomen is unremarkable. Remainder of the upper abdomen is normal for technique. BONES: There are mild degenerative changes in the thoracic spine. SOFT TISSUES: Unremarkable. IMPRESSION: 1. No evidence of pulmonary embolism to the segmental level. 2. No acute intrathoracic abnormality identified. 3. Prominent lymph nodes in the david hepatis are indeterminant and may reactive from an inflammatory or infectious process. Signed by: Griselda Nieto MD on 06/28/2020 11:31 AM
[2020-06-28] MEDS ORDERED: SODIUM CHLORIDE 0.9% 50ML 50 ML ONE (12:01)
[2020-06-28] MEDS ORDERED: IOPAMIDOL 370 MG/ML 200 ML INFUS..BTL INJ ONE (12:01)
--- NOTE | 2020-06-28 13:38 | Diagnostic Imaging Report ---
Examination: CT CERVICAL SPINE WO CONTRAST HISTORY:Neck pain and right arm weakness. COMPARISON:None. TECHNIQUE: Multidetector helical axial images were obtained without contrast from the foramen magnum to T1. Coronal and sagittal reformatted images were done. Bone and soft tissue windows were evaluated. Dose modulation, iterative reconstruction, and/or weight based adjustment of the mA/kV was utilized to reduce the radiation dose to as low as reasonably achievable. FINDINGS: Alignment:Normal alignment with straightening of normal lordosis. Vertebrae: Normal height and density. No acute fracture, infection or neoplasm. Disc space heights: Normal height. Caliber of spinal canal: Developmentally normal. Posterior fossa and craniocervical junction: Foramen magnum patent. No Chiari 1 malformation. Soft tissues: No abnormality. Degenerative changes: No disc bulge/ herniation or foraminal or canal stenosis. Visualized lung apices: No abnormalities. IMPRESSION: No acute abnormalities. Signed by: Dr. Nubia Warner M.D. on 06/28/2020 1:35 PM
[2020-06-28] MEDS ORDERED: GADOBENATE DIMEGLUMINE 1 ML IV ONE (14:31)
[2020-06-28] MEDS: PREGABALIN 75 MG CAP PO SCH (16:20)
--- NOTE | 2020-06-28 16:27 | Consultation ---
DATE OF CONSULTATION: 06/28/2020 Cardiology Consultation. REASON FOR CONSULTATION: Chest pain. HISTORY OF PRESENT ILLNESS: Mr. Mota is a 55-year-old gentleman with past medical history of hypertension, type 2 diabetes, hypercholesteremia, SLE, CAD with prior history of stenting most recently about 2-3 years ago, presents to this institution with recurrent and continuous right-sided chest wall pain for the past 3-4 days. 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 He reports that his right chest wall, right arm, and right hand started to tingle and noted that it went down to his right lateral side of his abdominal region. He noticed development of interval weakness on the right side of his body, in his arm, face and leg. He continued to have chest pain and took sublingual nitroglycerin without any relief or change in his discomfort. In fact, the patient reports having angina in the past, which he describes as a substernal chest pressure tightness heaviness and this particular episodic pain was unlike his previous coronary disease type pain and did not think much of it. Due to the persistence of his discomfort and having feelings of liquid like running sensation as well as a stinging sensation he decided to come to the emergency room for further care and management. Here in this hospital he had serial cardiac biomarkers that have been strongly negative. EKG showing sinus rhythm with right bundle-branch block and left anterior fascicular block with no ischemic changes. We had a long discussion with this patient today in terms of various differential diagnosis and discussion of his clinical state. PAST MEDICAL HISTORY: 1. Hypertension. 2. Type 2 diabetes with complications. 3. Hypercholesteremia. 4. SLE. 5. CAD with prior history of RI 5 years ago, has had stenting 5 years ago and most recently 2-3 years at [facility]. 6. History of chronic back pain requiring steroid injections, C-spine, T-spine, and L-spine. 7. Distant history of seizures. PAST SURGICAL HISTORY: CAD with prior history of stenting as noted above. FAMILY HISTORY: Father in his 70s from heart attack and diabetes. Mother , has hypertension and osteoporosis. Denies any premature family history of coronary artery disease. SOCIAL HISTORY: He is a current smoker, smokes half a pack per day. Denies any alcohol or illicit drug use. ALLERGIES: NO KNOWN DRUG ALLERGIES. HOME MEDICATIONS: Include: 1. Aspirin 81 mg daily. 2. Lipitor 80 mg at bedtime. 3. Coreg 3.125 mg b.i.d. 4. Albuterol MDI p.r.n. 5. Celexa 10 mg daily. 6. Gabapentin 300 mg daily. 7. Imdur 60 mg daily. 8. Lisinopril 20 mg daily. 9. Naproxen 500 mg b.i.d. p.r.n. 10. Brilinta 90 mg b.i.d. 11. Spiriva 18 mcg daily. REVIEW OF SYSTEMS: GENERAL: Denies any fevers, chills, or weight changes. HEENT: Denies headache, diplopia, visual complaints, sore throat, or stuffy nose. RESPIRATORY: Reports pleuritic chest pain as per HPI, has some shortness of breath. No wheezes. CARDIOVASCULAR: As per HPI. GI: Denies any abdominal pain, had some nausea, no vomiting, blood per rectum, melena, hematemesis. : Denies any dysuria, pyuria, or change in urinary frequency. MUSCULOSKELETAL: Positive for right-sided body weakness and does have chronic back pain and arthritic changes. ENDOCRINE: Positive for diabetes. No polydipsia or polyuria. HEMATOLOGY: Positive for easy bruising. ID: No known infectious issues. NEUROLOGIC: As per HPI. Denies any recent seizures or tingling. Skin: No rashes. Remainder of review of systems negative otherwise mentioned. PHYSICAL EXAMINATION: VITAL SIGNS: Temperature of 97.9, pulse 62, respiratory rate 18, blood pressure 123/71, O2 saturation 99% on room air. Height of 66 inches, weight of 188 pounds. BMI is 30.4. GENERAL: This is a well-nourished, well-developed gentleman, who is currently in no apparent distress. HEENT: Normocephalic, atraumatic. Pupils equal, round, and reactive to light. Extraocular movements are intact. Oropharynx is clear. There is notable right facial droop. NECK: No elevation of jugular venous pulsation. No carotid bruits. CARDIOVASCULAR: Regular rate and rhythm. Normal S1 and S2. Soft 2/6 systolic murmur at the left lower sternal border. LUNGS: Largely clear to auscultation bilaterally. There is some subjective variation in sensation in the right chest wall and right arm as compared to the left. BACK: No costovertebral angle tenderness. EXTREMITIES: Warm. ABDOMEN: Soft, nontender, obese. Normoactive bowel sounds. No hepatosplenomegaly. EXTREMITIES: Warm with 1 to 2+ bilateral radial pulses, 1+ femoral pulses, 1+ pedal pulses. NEUROLOGIC: There is right facial droop noted. There is 4-/5 strength in the right upper extremity and 4-/5 strength in the right lower extremity. LABORATORY DATA: White count 7.8, hemoglobin 13.5, hematocrit 39.9, and platelets of 216,000. Sodium 133, potassium 3.9, chloride 100, bicarb 21, BUN 9, creatinine of 0.83. A1c is 10.7%. AST 11, ALT 13, alkaline phosphatase 96, total protein 6.9, albumin 3.7, triglyceride 1275, HDL 34, LDL not calculable. UA is unremarkable. COVID is pending. Chest x-ray is unremarkable. CT PE protocol is negative for PE. MRI brain is unremarkable. Brain CT is unremarkable. EKG reveals normal sinus rhythm, right bundle-branch block and left anterior fascicular block. Troponin is negative at 0.023 most recent this a.m. DIAGNOSES: 1. Right-sided chest pain: Suspect neuropathic pain, atypical for his angina. 2. CAD with prior history of RI and stent to the coronary arteries. 3. Definitive right-sided body weakness, clinically seems to be a stroke. 4. Type 2 diabetes with complications. 5. Mixed hyperlipidemia. PLAN/RECOMMENDATIONS: 1. From a cardiovascular standpoint, we will continue him on aspirin therapy. 2. We will check carotid duplex. 3. Echocardiogram done showing structurally normally functional heart with EF of 60% with mild LVH. 4. Telemetry monitoring. 5. Offered ischemic risk stratification, but wishes to hold off for now and again the patient feels this is atypical for coronary process. 6. We will go ahead and check CT of the neck just to evaluate his C-spine. 7. Right now Brilinta is on hold in light of his may be neurologic event. 8. Agree with neurologic evaluation. 9. We will continue to follow. Thank you for this referral. Ahmad MD ASHLEY Ash/DELROY /[id number]
--- NOTE | 2020-06-28 16:32 | Consultation ---
DATE OF CONSULTATION: Neurology Consultation. HISTORY OF PRESENT ILLNESS: The patient is a 55-year-old male with a history of chronic back pain, comes in with chest pain which sounds more like a radiating pain from the back to the right under the nipple line, so possibly T5 or T6 on the right side. It does seem to follow dermatome pattern. There is no rash there. However, the pain started about five days ago, but he does have chronic back pain for which he has received injections in the past. He reports that he has been working in the [employer] in strained position, this may have irritated his chronic back and neck pain. He has a history of [place], history of hypertension, diabetes, lupus injections for nerve pain and back pain, history of seizures as well for which he was previously on Dilantin. He has also had diabetic neuropathy and a back injury with a fall. He states he has C, T, and L injuries, but he does not know which levels. He has had at least 5 different areas and he has had injections at least four times. 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 He does take pain medication at home, at least gabapentin and injection as well as diabetes medications, but can't recall them. REVIEW OF SYSTEMS: Pain described above. No headache. No nausea, vomiting, fevers, or rashes. A 14-point review of systems otherwise negative. PHYSICAL EXAMINATION: VITAL SIGNS: Show temperature 98, heart rate 66, blood pressure 170/71. HEENT: His extraocular muscles are intact. Speech is clear, primarily [place]an. No nuchal rigidity. NECK: No tenderness to palpation of the neck. No apparent rash on the neck, axilla, or back. When he point out the pain goes paraspinal down on the right, but also radiates in a dermatomal distribution under the nipple line, also on the right. Does not cross the midline either anteriorly or posteriorly. LUNGS: Breathing is clear and comfortable. CARDIOVASCULAR: Regular rate and rhythm. ABDOMEN: Soft and nontender. EXTREMITIES: No edema, no clubbing, no cyanosis. NEUROLOGIC: Oriented x3, responsive. No ataxia. Strength appears symmetric. EXTREMITIES: Upper and lower extremities at least 4+/5, possibly 5/5 with some limitation to pain. NEURO: Reflexes are symmetrically diminished, not brisk. Toes are downgoing bilaterally. Sensory grossly intact upper and lower extremities. ASSESSMENT AND PLAN: The pain with radiation concern for shingles. There is also the very severe concern of cardiovascular events. Cardiology is involved. We are going to get a spine MRI of the C and T-spine. Start him on Lyrica and Lidoderm patch for the pain recommend evaluation for cardiovascular event. JOSE F ZAMBRANO MD RR/MODL /[id number]
--- NOTE | 2020-06-28 16:56 | Diagnostic Imaging Report ---
Examination: MRI SPINE CERVICAL WO CONTRAST History: Right shoulder pain. Comparison studies: CT cervical spine performed earlier today. Technique: Sagittal T1, T2 and IR, axial T2 and axial gradient echo intravenous contrast: None Findings: Alignment: Normal lordosis. No scoliosis. Cervicomedullary junction: No abnormalities. Patent foramen magnum. Soft tissues: No T2 hyperintense inflammatory changes. Spinal cord: Normal in size and signal from the foramen magnum through T1. Vertebrae: No fractures, infection or neoplasm. Degenerative changes: C1-C2: No abnormalities. C2-C3: No abnormalities. C3-C4: Moderate left foraminal narrowing due to uncovertebral and facet arthropathy. No disc herniation or canal or right foraminal stenosis. C4-C5: Moderate right and mild left foraminal narrowing due to uncovertebral and facet arthropathy. No disc herniation or canal stenosis. C5-C6: Mild bilateral foraminal narrowing due to uncovertebral and facet arthropathy. No disc herniation or canal stenosis. C6-C7: Mild right foraminal narrowing due to uncovertebral and facet arthropathy. No disc herniation or canal or left foraminal stenosis. C7-T1: No abnormalities. IMPRESSION: 1. Degenerative foraminal stenosis as above. 2. No disc herniation or canal stenosis. Signed by: Dr. Nubia Warner M.D. on 06/28/2020 4:52 PM
--- NOTE | 2020-06-28 16:59 | Diagnostic Imaging Report ---
Examination: MRI SPINE THORACIC WO CONTRAST History: Back pain. Right shoulder pain. Comparison studies: None Technique: Sagittal T1 and STIR; axial, sagittal and coronal T2 Intravenous contrast: None. Findings: Alignment: Normal kyphosis. No scoliosis. Thoracic cord: Normal in signal and morphology. The tip of the conus is at T12-L1. Soft tissues: No T2 hyperintense inflammatory changes. Paraspinal muscles: Preserved. No volume loss. Vertebrae: No compression fractures, infection or neoplasm. Degenerative changes: Disc spaces:Normal in height and signal intensity.. Facets: Intact. Spinal canal:Patent. No stenosis. Foramina:Patent. Disc bulge or herniations:No abnormality. IMPRESSION: No disc herniation or canal or foraminal stenosis. Signed by: Dr. Nubia Warner M.D. on 06/28/2020 4:56 PM
[2020-06-28] MEDS ORDERED: ALBUTEROL SULFATE HFA 8GM INHALATION AEROSOL INH PRN (18:00)
[2020-06-28] MEDS ORDERED: MAGNESIUM SULFATE 2GM/50ML 50 ML IV ONE (18:00)
--- NOTE | 2020-06-28 18:50 | NUR ---
Report given to oncoming nurse of patients status. Sitting on recliner. AAOX3 to time, person, place. Respirations even and unlabored. call light within reach. Instructed patient to use call light for assistance. Voiced understanding
--- NOTE | 2020-06-28 19:04 | Progress Note ---
DATE: 06/28/2020 CONSULTING PHYSICIANS: 1. Dr. Su with Neurology. 2. Dr. Irwin with Cardiology. SUBJECTIVE: The patient still complains of right-sided chest pain, states is 6-10 on a 0-10 pain scale earlier and he was given morphine. After the morphine, the chest pain was reduced to 4 to 6/10. He states that the pain starts in the right chest, radiates to the back, then moves down and a subsequent sharp pain exists in the right axilla without diaphoresis, but "feels like water is running inside my body." His speech is still abnormal. It is not at baseline according to his , son and boss. His fingerstick blood glucose levels were running a size in the 500s two weeks ago along with blurry vision. The patient reports that he did not bring his CPAP from home and feels like he is choking at night. He is eating a bit better today. OBJECTIVE: VITAL SIGNS: Temperature 98.0, pulse 71, blood pressure 153/80, respirations 20, oxygen saturation 96%. GENERAL: Out of bed, sitting up in a chair at the bedside, no acute distress. LUNGS: Clear to auscultation. RESPIRATORY: Pattern even and unlabored. He is able to achieve 2 L with incentive spirometry. No supplemental oxygen. HEENT: EOMI. NECK: Supple. No thyromegaly or JVD noted, CARDIOVASCULAR: Regular rate and rhythm. No murmur. ABDOMEN: Bowel sounds positive. Soft, nontender. EXTREMITIES: No pitting edema. No clubbing, cyanosis, or marked swelling. NEUROLOGICAL: Still weak on the right side, minimal drift noted on the right side with bedside neurological exam. INTEGUMENTARY: Skin is clear on the back. No sign of rash or shingles. There is tenderness at the right axilla, the right nipple and the pictorial area. LABORATORY DATA: WBC 7.78, hemoglobin 13.5, hematocrit 39.9, platelets 216. Sodium 133, potassium 3.9, chloride 100, CO2 of 21, BUN 9, creatinine 0.83, estimated GFR greater than 60, glucose 244. Hemoglobin A1c 10.7%. Fingerstick blood glucose levels 301 and 310. Calcium 8.5, phosphorus 4.0, magnesium 1.6, total bilirubin 0.3, AST 11, ALT 13, alkaline phosphatase 96. Creatine kinase 60, CK-MB 1.6, troponin I 0.023. Total protein 6.9, albumin 3.7. TSH 2.681. Urinalysis collected 06/28 is negative. Cytomegalovirus IgG and IgM antibodies are pending. Herpes simplex virus one and two, DNA PCR are pending. IMAGING/OTHER: CT of the chest with contrast on 06/28 shows no evidence of pulmonary embolism to the segmental level. No acute intrathoracic abnormality identified. Prominent lymph nodes in the david hepatis are indeterminate and may be reactive from an inflammatory or infectious process. CT of the cervical spine done 06/28 was negative. No acute abnormalities. MRI of the cervical spine shows degenerative foraminal stenosis. No disk herniation or canal stenosis. Thoracic spine MRI done 06/28 shows no disk herniation or canal or foraminal stenosis. On 06/27, preliminary echocardiogram shows an estimated ejection fraction of 65%. Bilateral carotid Doppler ultrasound has been ordered and results are pending. ASSESSMENT AND PLAN: 1. Atypical right-sided chest pain, rule out ACS (with history of CAD, ME, cardiac stent x2, DM, active smoker, HLD). Cardiology following. Bilateral carotid Doppler ultrasound pending. Continue to monitor telemetry. Stress test has been offered, but the patient deferred to outpatient, Brilinta is on hold due to possible neurological event. 2. Right-sided weakness, possible TIA, possible radiating right-sided back pain along T5 or T6 dermatome, concern for herpes zoster. Serology workup with CMV and HSV as well as Coronavirus PCR all remain pending. Coronavirus is not suspected. Lyrica and Lidoderm for pain have been started. MRI of the cervical spine without contrast showed at C3-C4 level, moderate left foraminal narrowing due to uncovertebral and facet arthropathy, no disk herniation or canal or right foraminal stenosis. There is also degenerative foraminal stenosis noted at C4-C5, C5-C6 and C6-C7 levels. Neurology following. Appreciate recommendations. Physical therapy eval and treat has been ordered however this weekend and patient has not been seen as of yet. He will likely be seen tomorrow, on Monday. 3. Uncontrolled type 2 diabetes mellitus with hyperglycemia, neuropathy. Serum glucose 301-310 today. Hemoglobin A1c 10.7%. We will increase Lantus from 10 units to 20 units at bedtime, continue low-dose insulin regular insulin sliding scale. 4. Controlled hypertension, blood pressure 153/80 earlier this morning, but after morning antihypertensives, blood pressures improved to 123/71. 5. Systemic lupus erythematosus. PT eval and treat on Monday. 6. Hyperlipidemia, triglycerides 1275 and cholesterol 288. Resume Lipitor 80 mg at bedtime from home. 7. Chronic obstructive pulmonary disease without acute exacerbation, active smoker with 18 pack-year use, obstructive sleep apnea with use of CPAP at home. Resume Spiriva and ProAir HFA. Encourage incentive spirometry hourly while awake, currently not requiring supplemental oxygen. We will add hospital CPAP to be used at bedtime as patient did not bring his CPAP from home. 8. Acute hypomagnesemia, magnesium level 1.6. We will replete today with 2 g magnesium sulfate, reassess magnesium tomorrow. 9. Acute hyponatremia, sodium level 133, monitor. 10. Prophylaxis, Pepcid, SCDs. Inpatient, billing code [id number]. Time spent 40 minutes. Dictated by Enoc Todd NP MD TREVIN AbdallaP/MODL /[id number]
--- NOTE | 2020-06-28 19:15 | NUR ---
Patient received sitting in recliner chair. AAO x 3. No acute distress noted. Call light within reach.
[2020-06-28] MEDS ORDERED: ONDANSETRON HCL INJ 2MG/ML 2ML 2 MG/ML VIAL IV PRN (20:30)
[2020-06-28] MEDS: INSULIN GLARGINE 100 UNITS/ML VIAL SQ SCH (21:00)
[2020-06-28] MEDS: ATORVASTATIN 40 MG TAB PO SCH (21:56)
[2020-06-29] VITALS (8 sets, daily range): BP systolic 98–147; BP diastolic 72–113
[2020-06-29] MEDS: ACETAMINOPHEN/CODEINE 300MG - 30MG TAB PO PRN ×2 (04:13→12:03)
[2020-06-29 05:37] LABS: BASOPHILS # (AUTO) 0.1 (0.0-0.1); BASOPHILS % 0.8 % (0.0-1.0); EOSINOPHILS # (AUTO) 0.2 (0.0-0.4); EOSINOPHILS % 1.9 % (0.0-6.0); HEMATOCRIT 41.4 % (38.2-49.6); HEMOGLOBIN 14.1 g/dL (14.0-18.0); LYMPHOCYTES % 23.3 % (18.0-39.1); MEAN CORPUSCULAR HEMOGLOBIN 28.5 pg (28-32); MEAN CORPUSCULAR HGB CONC 34.1 g/dL (31-35); MEAN CORPUSCULAR VOLUME 83.6 fL (81-99); MONOCYTES # (AUTO) 0.6 (0.2-0.8); MONOCYTES % 6.6 % (4.4-11.3); NEUTROPHILS # (AUTO) 5.6 (2.1-6.9); NEUTROPHILS % 66.7 % (38.7-80.0); PLATELET COUNT 227 x10e3/uL (140-360); RED BLOOD COUNT 4.95 x10e6/uL (4.3-5.7); RED CELL DISTRIBUTION WIDTH 13.5 % (11.7-14.4)
[2020-06-29 05:59] LABS: ANION GAP 18.9 mmol/L (8-16); BLOOD UREA NITROGEN 9 mg/dL (7-26); BUN/CREATININE RATIO 11 (6-25); CALCIUM 8.5 mg/dL (8.4-10.2); CARBON DIOXIDE 19 mmol/L (22-29); CHLORIDE 97 mmol/L (98-107); CREATININE, SERUM 0.81 mg/dL (0.72-1.25); EST GLOMERULAR FILTRATION RATE > 60 ML/MIN (60-); GLUCOSE 237 mg/dL (74-118); MAGNESIUM 1.7 MG/DL (1.3-2.1); POTASSIUM 3.9 mmol/L (3.5-5.1); SODIUM 131 mmol/L (136-145)
[2020-06-29] MEDS: TIOTROPIUM 18 MCG INH POWDER INH SCH (06:08)
[2020-06-29] MEDS: INSULIN LISPRO 100 UNIT/1 ML 3ML VIAL SQ SCH ×4 (07:30→21:00)
[2020-06-29] MEDS: PREGABALIN 75 MG CAP PO SCH ×2 (08:48→17:08)
[2020-06-29] MEDS: DOCUSATE SODIUM 100 MG CAP PO SCH ×2 (08:48→17:07)
[2020-06-29] MEDS: ASPIRIN 325 MG TAB EC PO SCH (08:48)
[2020-06-29] MEDS: LIDOCAINE 4% PATCH TP SCH (08:48)
[2020-06-29] MEDS: ISOSORBIDE MONONITRATE 30 MG TAB CR PO SCH (08:49)
[2020-06-29] MEDS: CARVEDILOL 3.125 MG TAB PO SCH (08:50)
[2020-06-29] MEDS ORDERED: ATORVASTATIN 20 MG TAB PO SCH (09:00)
[2020-06-29] MEDS: FAMOTIDINE 20 MG/2 ML VIAL IV SCH ×2 (09:00→17:07)
[2020-06-29] MEDS: MORPHINE SULFATE 2 MG/ML SYR 1ML IV PRN ×3 (09:04→22:48)
[2020-06-29] MEDS ORDERED: MAGNESIUM SULFATE 2GM/50ML 50 ML IV ONE (09:15)
[2020-06-29] MEDS: SODIUM CHLORIDE 0.9% 1000ML 1,000 ML IV SCH (11:33)
[2020-06-29] MEDS: CITALOPRAM HYDROBROMIDE 20 MG TAB PO SCH (12:02)
--- NOTE | 2020-06-29 12:05 | NUR ---
awake less pain than yesterday imaging reasurring vs 98.2 60 98/79 HEENT: His extraocular muscles are intact. Speech is clear, primarily Gibraltarian. No nuchal rigidity. NECK: No tenderness to palpation of the neck. No apparent rash on the neck, axilla, or back. When he point out the pain goes paraspinal down on the right, but also radiates in a dermatomal distribution under the nipple line, also on the right. Does not cross the midline either anteriorly or posteriorly. LUNGS: Breathing is clear and comfortable. CARDIOVASCULAR: Regular rate and rhythm. ABDOMEN: Soft and nontender. EXTREMITIES: No edema, no clubbing, no cyanosis. NEUROLOGIC: Oriented x3, responsive. No ataxia. Strength appears symmetric. EXTREMITIES: Upper and lower extremities at least 4+/5, possibly 5/5 with some limitation to pain. NEURO: Reflexes are symmetrically diminished, not brisk. Toes are downgoing bilaterally. Sensory grossly intact upper and lower extremities. ap pain radicular in nature - denies benefit from lidoderm possible benefit form lyrica will start carbamazapine shingles seems unliukely but can start acyclovir or valcyclovir empirically
[2020-06-29] MEDS: VALACYCLOVIR HCL 500 MG TAB PO SCH ×2 (12:45→21:33)
[2020-06-29] MEDS: CARBAMAZEPINE 200 MG TAB PO SCH (17:08)
--- NOTE | 2020-06-29 19:20 | NUR ---
Report given to oncoming nurse of patient's status. Resting in bed. AAOX4 to time, person, place, situation. Respirations even and unlabored. Side rails upx2, call light within reach.
--- NOTE | 2020-06-29 19:58 | NUR ---
RECEIVED PT IN BED AOX3 ,DENIES PAIN NOW TELE SHOWS SR RT AC 20G NS AT 50CC/HR CALL LIGHT WITH IN REACH ,CONTINUE TO MONITOR
[2020-06-29] MEDS: INSULIN GLARGINE 100 UNITS/ML VIAL SQ SCH (21:00)
[2020-06-29] MEDS: ATORVASTATIN 40 MG TAB PO SCH (21:33)
[2020-06-30] VITALS: BP 140/65
[2020-06-30 04:00] VITALS: BP 151/92
[2020-06-30] MEDS: VALACYCLOVIR HCL 500 MG TAB PO SCH ×2 (05:44→14:00)
[2020-06-30] MEDS: MORPHINE SULFATE 2 MG/ML SYR 1ML IV PRN (05:45)
--- NOTE | 2020-06-30 06:45 | NUR ---
C/O PAIN AND GIVEN ORDERED PAIN MEDICATION. CALL LIGHT WITH IN REACH ,CONTINUE TO MONITOR
[2020-06-30] MEDS: SODIUM CHLORIDE 0.9% 1000ML 1,000 ML IV SCH (07:07)
[2020-06-30 07:10] LABS: ANION GAP 18.5 mmol/L (8-16); BLOOD UREA NITROGEN 9 mg/dL (7-26); BUN/CREATININE RATIO 11 (6-25); CALCIUM 8.5 mg/dL (8.4-10.2); CARBON DIOXIDE 20 mmol/L (22-29); CHLORIDE 99 mmol/L (98-107); EST GLOMERULAR FILTRATION RATE > 60 ML/MIN (60-); GLUCOSE 237 mg/dL (74-118); MAGNESIUM 1.5 MG/DL (1.3-2.1); POTASSIUM 4.5 mmol/L (3.5-5.1); SODIUM 133 mmol/L (136-145)
[2020-06-30] MEDS: TIOTROPIUM 18 MCG INH POWDER INH SCH (07:12)
--- NOTE | 2020-06-30 07:31 | Progress Note ---
DATE: 06/29/2020 CONSULTING PHYSICIANS: Dr. Idania Su and Dr. Bradley Irwin. SUBJECTIVE: The patient is lying supine in bed, is asleep with CPAP in place. No acute distress. Easily arousable. The patient still complains of right-sided chest pain off and on. States it is generally about a 5/10 on a 0-10 pain scale. He has been receiving morphine for this pain. Apparently, it starts in the right chest, radiates to the back and moves down and a subsequent sharp pain exists in the right axilla without diaphoresis, but "feels like water is running through the inside of my body." His speech is abnormal and not at baseline according to his , son, and boss the patient's status. His FSBGs were running in the 500s two weeks ago, along with blurry vision. OBJECTIVE: VITAL SIGNS: Temperature 97.3, pulse 68, blood pressure 110/89, respirations 18, and oxygen saturation 100%. GENERAL: Supine, wearing CPAP. No acute distress. LUNGS: Respiratory pattern even and nonlabored. No acute dyspnea pattern even and nonlabored. No supplemental oxygen. HEENT: EOMI. NECK: Supple. No thyromegaly or JVD. CARDIOVASCULAR: Regular rate and rhythm without murmur. ABDOMEN: Bowel sounds positive. Soft, nontender. No guarding. EXTREMITIES: No pitting edema. No clubbing, cyanosis, or marked swelling. NEUROLOGICAL: Still weak on the right side. INTEGUMENTARY: Skin has been clear on the back. No signs of rash or shingles. There is tenderness at the right axilla, the right nipple in the pectoral area. LABORATORY DATA: WBCs 8.44, hemoglobin 14.1, hematocrit 41.4, platelets 227. Sodium 131, potassium 3.9, chloride 97, CO2 of 19, anion gap 18.9, BUN 9 and creatinine 0.81, estimated GFR greater than 60, glucose 237, calcium 8.5, magnesium 1.7. Fingerstick blood glucose levels 236, 265, 298, and 184. No new imaging results. ASSESSMENT AND PLAN: 1. Atypical right-sided chest pain, rule out acute coronary syndrome (with history of coronary artery disease, myocardial infarction, cardiac stent x2, diabetes mellitus, active smoker, hyperlipidemia). Cardiology following. Continue to monitor telemetry. Any bilateral carotid Doppler ultrasound results are pending. Stress test has been offered, but the patient deferred this test as outpatient. Brilinta is on hold due to possible neurological event. 2. Acute right-sided weakness, possible transient ischemic attack, possible radiating right-sided back pain along T5 or T6 dermatome, concern for herpes zoster. Coronavirus was not suspected and test results were negative. Serology workup with CMV and HSV as well as coronavirus PCR all remain pending. Physical therapy eval and treat has been ordered. Lyrica and Lidoderm for pain have been started. 3. Controlled type 2 diabetes mellitus with hyperglycemia, and neuropathy. Hemoglobin A1c is 10.7%. Continue low-dose sliding scale insulin. 4. Controlled hypertension, blood pressure 110/89. 5. Systemic lupus erythematosus. PT eval and treat. 6. Hyperlipidemia. Resume Lipitor. 7. Chronic obstructive pulmonary disease without acute exacerbation, active smoker with 18 pack-year use, obstructive sleep apnea with use of CPAP at home. Continue use of Spiriva. 8. Acute hypomagnesemia. Continue to replete magnesium level p.r.n. 9. Acute hyponatremia. Sodium level 131. Monitor. 10. Prophylaxis, Pepcid 20 mg b.i.d. Inpatient, billing code [id number]. Time spent 35 minutes. Dictated by Enoc Todd NP Malachi Coffey MD HWP/MODL /[id number]
--- NOTE | 2020-06-30 07:53 | NUR ---
BEDSIDE REPORT GIVEN TO THE ONCOMING NURSE
[2020-06-30] MEDS: ASPIRIN 325 MG TAB EC PO SCH (08:54)
[2020-06-30] MEDS: LIDOCAINE 4% PATCH TP SCH (08:54)
[2020-06-30] MEDS: CARBAMAZEPINE 200 MG TAB PO SCH (08:54)
[2020-06-30] MEDS: PREGABALIN 75 MG CAP PO SCH (08:54)
[2020-06-30] MEDS: CITALOPRAM HYDROBROMIDE 20 MG TAB PO SCH (08:54)
[2020-06-30] MEDS: DOCUSATE SODIUM 100 MG CAP PO SCH (08:54)
[2020-06-30] MEDS: FAMOTIDINE 20 MG/2 ML VIAL IV SCH (08:54)
[2020-06-30] MEDS: CARVEDILOL 3.125 MG TAB PO SCH (08:54)
[2020-06-30] MEDS: ISOSORBIDE MONONITRATE 30 MG TAB CR PO SCH (08:54)
[2020-06-30] MEDS: INSULIN LISPRO 100 UNIT/1 ML 3ML VIAL SQ SCH ×2 (09:22→12:04)
[2020-06-30] MEDS ORDERED: MAGNESIUM SULFATE 2GM/50ML 50 ML IV ONE (09:45)
[2020-06-30] MEDS: ACETAMINOPHEN/CODEINE 300MG - 30MG TAB PO PRN (09:55)
[2020-06-30 10:16] VITALS: BP 152/61
--- NOTE | 2020-06-30 10:16 | NUR ---
calm, still complaining of pain but slightly better 96.7 58 151/92 HEENT: His extraocular muscles are intact. Speech is clear, primarily Welsh. No nuchal rigidity. NECK: No tenderness to palpation of the neck. No apparent rash on the neck, axilla, or back. When he point out the pain it is unilateral and radiates paraspinal down on the right, but also radiates in a dermatomal distribution under the nipple line, also on the right. Does not cross the midline either anteriorly or posteriorly. LUNGS: Breathing is clear and comfortable. CARDIOVASCULAR: Regular rate and rhythm. ABDOMEN: Soft and nontender. EXTREMITIES: No edema, no clubbing, no cyanosis. NEUROLOGIC: Oriented x3, responsive. No ataxia. Strength appears symmetric. EXTREMITIES: Upper and lower extremities at least 4+/5, possibly 5/5 with some limitation to pain. NEURO: Reflexes are symmetrically diminished, not brisk. Toes are downgoing bilaterally. Sensory grossly intact upper and lower extremities. ap pain radicular in nature - denies benefit from lidoderm possible benefit form lyrica initiated carbamazapine shingles seems unliukely but can start acyclovir or valcyclovir empirically until serology is negative thoracic raediculopathy/neuralgia - injection sa outpt
[2020-06-30 10:42] VITALS: BP 152/61
[2020-06-30] MEDS ORDERED: MAGNESIUM SULF 1GRAM/DEXTROSE 100 ML IV ONE (12:15)
[2020-06-30] MEDS ORDERED: CARBAMAZEPINE200 MG PO (12:29)
[2020-06-30] MEDS ORDERED: Lidocaine Patch TP (12:29)
[2020-06-30] MEDS ORDERED: LYRICA75 MG PO (12:29)
[2020-06-30] MEDS ORDERED: VALTREX500 MG PO (12:29)
[2020-06-30] MEDS ORDERED: COLACE100 MG PO (12:29)
[2020-06-30] MEDS ORDERED: Insulin Glargine SQ (12:29)
[2020-06-30] MEDS ORDERED: Insulin Lispro SQ (12:43)
[2020-06-30 12:54] VITALS: BP 121/73
--- NOTE | 2020-06-30 16:13 | NUR ---
patient discharged. all discharge instructions and prescriptions reviewed with patient. denied questions. pt aware of follow up appts needed. patient wheeled off unit with all belongings to 's personal vehicle.
--- NOTE | 2020-06-30 19:14 | Discharge Summary ---
CONSULTING PHYSICIANS: Include Dr. Idania Su and Dr. Bradley Irwin. CHIEF COMPLAINT: Right-sided chest pain. PRIMARY CARE PHYSICIAN: Randall Mike. HISTORY: The patient is a 55-year-old Latin-Citizen [place] male admitted from the [facility] with complaints of 2-day duration of right-sided sharp stabbing chest pain that radiates to his right back. The patient denies any recent trauma, motor vehicle accident, work injury, etc. He denies any recent sick contacts or contact with anyone, who is known to have COVID. He reported that his pain is more severe with breathing and movement, rated 7/10 at rest and 10/10 with movement. 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 The morphine helped this pain some, but has not alleviated completely. Please see history and physical dictated on 06/27/2020, for the patient's past medical, surgical, family, social history, as well as the initial laboratory data. A 12-lead EKG had shown normal sinus rhythm, incomplete right bundle-branch block, left anterior fascicular block. Chest x-ray was negative. CT of the brain was negative. MRI of the brain was negative. ADMITTING DIAGNOSES: 1. Right-sided chest pain, rule out acute coronary syndrome (with history of coronary artery disease, myocardial infarction, cardiac stents x2, diabetes mellitus, active smoker, hyperlipidemia). 2. Proximal transient ischemic attack/cerebrovascular accident, right-sided headache, distant history of seizures. 3. Uncontrolled type 2 diabetes mellitus with hyperglycemia and neuropathy. 4. Controlled hypertension. 5. Systemic lupus erythematosus. 6. Hyperlipidemia. 7. Chronic obstructive pulmonary disease without acute exacerbation, active smoker with 18 pack-year history. 8. Acute hypokalemia. DISCHARGE DIAGNOSES: 1. Atypical right-sided chest pain, acute coronary syndrome has been ruled out. 2. Acute right-sided weakness, possible radiating right-sided back pain along T5 or T6 dermatome, mild concern for herpes zoster, but more likely a form of sciatica. 3. Controlled type 2 diabetes mellitus with hyperglycemia and neuropathy. 4. Controlled hypertension. 5. Systemic lupus erythematosus. 6. Hyperlipidemia. 7. Chronic obstructive pulmonary disease without acute exacerbation. 8. Acute hypomagnesemia. 9. Acute hyponatremia. HOSPITAL COURSE: Per consultation note by Cardiology, echocardiogram done showing structurally normal functional heart with ejection fraction of 60% with mild LVH. Offered ischemic risk stratification, but the patient wishes to hold off for now and again, the patient feels this is atypical for coronary process. The patient may desire to have a stress test on an outpatient basis. Carotid duplex shows no evidence of significant carotid stenosis. CT of the chest showed no evidence of pulmonary embolism to the segmental level. No acute intrathoracic abnormality identified. Prominent lymph nodes in the david hepatis are indeterminate and may be reactive from an inflammatory or infectious process. CT of the cervical spine showed no acute abnormalities. Cervical spine MRI showed degenerative foraminal stenosis. No disk herniation or canal stenosis. MRI of the thoracic spine showed no disk herniation or canal or foraminal stenosis. Per Dr. Su's consultation note, the pain with radiation via dermatome concern for shingles. Per Dr. Su, this is not a spinal cord injury. HSV and CMV IgG and IgM antibody remained pending. Dr. Su believes that the patient's muscle pain is most likely a sciatica type of pain. He recommends the patient followup with Dr. Savage with Pain Management for steroid injections, to continue the carbamazepine 200 mg b.i.d. for 5 days, then increase to t.i.d. after that. Fingerstick blood glucose levels today 219 and 305. According to the nurse, the patient has poor dietary habits, drinking soda. Blood sugar has been elevated, although I had increased the Lantus insulin to 20 units at bedtime. Magnesium today low at 1.53 g, magnesium sulfate IV today. Valtrex was initiated as there was a chance that the pain could be due to herpes zoster shingles. Per Dr. Su's recommendations, we will stop this Valtrex for now. Vital signs on the day of discharge; temperature 97.4, pulse 67, blood pressure 152/61, respirations 20, oxygen saturation 96%. WBC 8.44, hemoglobin 14.1, hematocrit 41.4, and platelets 227. Sodium 133, potassium 4.5, chloride 99, CO2 of 20, anion gap 18.5, BUN 9, creatinine 0.8, estimated GFR greater than 60, glucose 237, calcium 8.5, magnesium 1.5. Urinalysis done day before yesterday was negative. The patient encouraged to continue ADA diet. Activity level as tolerated. The patient's troponin levels were less than 0.5. Per Cardiology, this pain is not cardiac related. During his stay, hemoglobin A1c was 10.7%. The patient instructed to follow up with PCP in 1 to 2 weeks. Follow up with Dr. Su as directed. Follow up with his associate Dr. Savage with Pain Management. Dictated by Enoc Todd NP MD TREVIN AbdallaP/MODL /[id number]
== END 2020-06-30 16:15 | disposition home or self-care (01) ==
LOC: EDBD 12:20 → FSED 12:20 → ERHOLD 13:34 → MED/SURG2 16:01
PROVIDERS: ADMIT Internal Medicine; ATTEND Internal Medicine
DX: R07.89 Other chest pain (principal); I10 Essential (primary) hypertension; M54.13 Radiculopathy, cervicothoracic region; I25.2 Old myocardial infarction; M54.9 Dorsalgia, unspecified; E78.2 Mixed hyperlipidemia; E78.00 Pure hypercholesterolemia, unspecified; E87.6 Hypokalemia; F17.210 Nicotine dependence, cigarettes, uncomplicated; M32.9 Systemic lupus erythematosus, unspecified; E11.65 Type 2 diabetes mellitus with hyperglycemia; E11.42 Type 2 diabetes mellitus with diabetic polyneuropathy; R56.9 Unspecified convulsions; Z82.49 Family history of ischemic heart disease and other diseases of the circulatory system; Z83.3 Family history of diabetes mellitus; Z82.62 Family history of osteoporosis; Z80.3 Family history of malignant neoplasm of breast; Z95.5 Presence of coronary angioplasty implant and graft; M48.02 Spinal stenosis, cervical region; E83.42 Hypomagnesemia; E87.1 Hypo-osmolality and hyponatremia; R53.1 Weakness; Z11.59 Encounter for screening for other viral diseases
CPT/HCPCS: 36415 ×4; 70450; 70551; 71045; 71260; 72125; 72141; 72146; 80048 ×2; 80053 ×2; 80061; 81001; 82550; 82553 ×2; 82948 ×4; 83036; 83735 ×3; 84100; 84443; 84484 ×2; 85025 ×3; 86644; 86645; 87529; 93005; 93306; 93880; 94660 ×3; 96374; 96375; 96376; 97161; 99284; A9577; G0378 ×4; J1815; J1817; J2270 ×5; J2405; J3475 ×4; J7030 ×2; Q9967; U0002

== ENCOUNTER 2021-08-26 17:29 | Emergency (ER) | payer SELFPAY ==
[~2021-08-26] VITALS: Ht 167.6 cm; Wt 87.5 kg
[~2021-08-26 17:29] MED LIST changes: +ALBUTEROL0.63 MG/3; +BRILINTA60 MG PO; +CARBAMAZEPINE200 MG PO; +CARVEDILOL3.125 MG PO; +COLACE100 MG PO; +GABAPENTIN300 MG PO; +ISOSORBIDE MONO30 MG PO; +Insulin Glargine SQ; +Insulin Lispro SQ; +LIPITOR20 MG PO; +LISINOPRIL10 MG PO; +LYRICA75 MG PO; +Lidocaine Patch TP; +NAPROXEN250 MG PO; +PROAIR HFA INH8.5 GM; +SPIRIVA18 MCG INH; +VALTREX500 MG PO
[2021-08-26 18:18] LABS: BASOPHILS # (AUTO) 0.1 (0.0-0.1); BASOPHILS % 0.7 % (0.0-1.0); EOSINOPHILS # (AUTO) 0.1 (0.0-0.4); EOSINOPHILS % 1.5 % (0.0-6.0); HEMATOCRIT 40.3 % (38.2-49.6); HEMOGLOBIN 14.1 g/dL (14.0-18.0); LYMPHOCYTES # (AUTO) 2.3 (1.0-3.2); LYMPHOCYTES % 24.7 % (18.0-39.1); MEAN CORPUSCULAR HEMOGLOBIN 30.1 pg (28-32); MEAN CORPUSCULAR VOLUME 86.1 fL (81-99); MONOCYTES # (AUTO) 0.6 (0.2-0.8); NEUTROPHILS # (AUTO) 6.1 (2.1-6.9); NEUTROPHILS % 66.4 % (38.7-80.0); PLATELET COUNT 264 x10e3/uL (140-360); RED BLOOD COUNT 4.68 x10e6/uL (4.3-5.7)
[2021-08-26] MEDS ORDERED: NITROGLYCERIN 0.2 MG/HR PATCH TOP SCH (18:30)
[2021-08-26 18:44] LABS: ALBUMIN 3.6 g/dL (3.5-5.0); ANION GAP 17.1 mmol/L (8-16); CALCIUM 8.3 mg/dL (8.4-10.2); CREATININE, SERUM 0.86 mg/dL (0.72-1.25); INR 0.86; MAGNESIUM 1.6 MG/DL (1.3-2.1); POTASSIUM 4.1 mmol/L (3.5-5.1); PROTHROMBIN TIME 12.4 seconds (11.9-14.5)
[2021-08-26 18:45] LABS: PARTIAL THROMBOPLASTIN TIME 34.3 seconds (23.8-35.5)
[2021-08-26 18:50] LABS: CREATINE KINASE MB 2.5 ng/mL (0-5.0)
[2021-08-26] MEDS: Morphine 4mg Syringe 4 MG/ML INJ IV ONE ×2 (20:12→21:12)
[2021-08-26 21:45] VITALS: BP 150/78
== END 2021-08-26 21:48 | disposition other institution (70) ==
LOC: ER 17:35
DX: R07.9 Chest pain, unspecified (principal); I25.10 Atherosclerotic heart disease of native coronary artery without angina pectoris; E11.65 Type 2 diabetes mellitus with hyperglycemia; R06.02 Shortness of breath; R11.0 Nausea; E78.00 Pure hypercholesterolemia, unspecified; Z20.822 Contact with and (suspected) exposure to COVID-19; I25.2 Old myocardial infarction; Z86.73 Personal history of transient ischemic attack (TIA), and cerebral infarction without residual deficits; Z95.5 Presence of coronary angioplasty implant and graft
CPT/HCPCS: 36415; 71045; 80053; 82550; 82553; 83735; 83880; 84484; 85025; 85379; 85610; 85730; 93005; 99284; J2270; U0002

== ENCOUNTER 2021-09-27 18:45 | Emergency (ER) | payer SELFPAY ==
[~2021-09-27] VITALS: Ht 167.6 cm; Wt 87.5 kg
[2021-09-27] MEDS ORDERED: ONDANSETRON HCL INJ 2MG/ML 2ML 2 MG/ML VIAL IV STA (18:52)
[2021-09-27] MEDS ORDERED: Morphine 4mg Syringe 4 MG/ML INJ IV STA (18:52)
[2021-09-27 19:05] LABS: BASOPHILS # (AUTO) 0.1 (0.0-0.1); BASOPHILS % 0.6 % (0.0-1.0); EOSINOPHILS # (AUTO) 0.1 (0.0-0.4); EOSINOPHILS % 1.4 % (0.0-6.0); HEMATOCRIT 39.1 % (38.2-49.6); HEMOGLOBIN 13.3 g/dL (14.0-18.0); LYMPHOCYTES # (AUTO) 2.1 (1.0-3.2); LYMPHOCYTES % 22.7 % (18.0-39.1); MEAN CORPUSCULAR HEMOGLOBIN 29.6 pg (28-32); MEAN CORPUSCULAR VOLUME 86.9 fL (81-99); MONOCYTES # (AUTO) 0.4 (0.2-0.8); MONOCYTES % 4.7 % (4.4-11.3); NEUTROPHILS # (AUTO) 6.5 (2.1-6.9); PLATELET COUNT 247 x10e3/uL (140-360)
[2021-09-27 19:12] LABS: INR 0.81; PARTIAL THROMBOPLASTIN TIME 30.2 seconds (23.8-35.5); PROTHROMBIN TIME 11.9 seconds (11.9-14.5)
[2021-09-27 19:19] LABS: ALANINE AMINOTRANSFERASE 12 IU/L (0-55); ALBUMIN 3.8 g/dL (3.5-5.0); ALBUMIN/GLOBULIN RATIO 1.2 (0.8-2.0); ALKALINE PHOSPHATASE 101 IU/L (40-150); BLOOD UREA NITROGEN 14 mg/dL (7-26); BUN/CREATININE RATIO 13 (6-25); CALCIUM 8.7 mg/dL (8.4-10.2); CARBON DIOXIDE 20 mmol/L (22-29); CHLORIDE 97 mmol/L (98-107); CREATINE KINASE 108 IU/L (30-200); CREATININE, SERUM 1.05 mg/dL (0.72-1.25); EST GLOMERULAR FILTRATION RATE 74 ML/MIN (60-); GLUCOSE 356 mg/dL (74-118); SODIUM 132 mmol/L (136-145)
[2021-09-27 21:10] VITALS: BP 134/86
== END 2021-09-27 20:30 | disposition home or self-care (01) ==
LOC: ER 18:52
DX: I25.10 Atherosclerotic heart disease of native coronary artery without angina pectoris (principal); R07.89 Other chest pain; I10 Essential (primary) hypertension; I25.2 Old myocardial infarction; E11.9 Type 2 diabetes mellitus without complications; G40.909 Epilepsy, unspecified, not intractable, without status epilepticus; E78.5 Hyperlipidemia, unspecified; M32.9 Systemic lupus erythematosus, unspecified; M54.9 Dorsalgia, unspecified; Z76.5 Malingerer [conscious simulation]; F17.200 Nicotine dependence, unspecified, uncomplicated; Z95.5 Presence of coronary angioplasty implant and graft; Z86.73 Personal history of transient ischemic attack (TIA), and cerebral infarction without residual deficits; Z79.4 Long term (current) use of insulin; Z79.82 Long term (current) use of aspirin; Z79.899 Other long term (current) drug therapy
CPT/HCPCS: 36415; 71045; 80053; 82550; 82553; 83880; 84484; 85025; 85610; 85730; 93005; 99283; J2270; J2405

== ENCOUNTER 2021-10-18 17:53 | Emergency (ER) | payer SELFPAY ==
[~2021-10-18] VITALS: Ht 167.6 cm; Wt 81.6 kg
[2021-10-18] MEDS ORDERED: SODIUM CHLORIDE 0.9% 50ML 50 ML ONE (19:23)
[2021-10-18] MEDS ORDERED: IOPAMIDOL 370 MG/ML 200 ML INFUS..BTL INJ ONE (19:24)
[2021-10-18] MEDS ORDERED: DIATRIZOATE MEGL/DIATRIZOA SOD 30 ML BTL PO ONE (19:24)
[2021-10-18] MEDS ORDERED: KETOROLAC TROMETHAMINE 30 MG/ML VIAL IV STA (19:31)
[2021-10-18] MEDS ORDERED: KETOROLAC TROMETHAMINE 30 MG/ML VIAL ONE (19:53)
[2021-10-18] MEDS ORDERED: HYDROCODONE/APAP 5MG-325MG TAB PO ONE (21:45)
[2021-10-18 21:50] VITALS: BP 151/86
[2021-10-18] MEDS ORDERED: MIRALAX17 GM PO (21:50)
[2021-10-18] MEDS ORDERED: ADULT GLYCERIN1 EACH PR (21:50)
== END 2021-10-18 21:58 | disposition home or self-care (01) ==
LOC: FSED 17:58
DX: M54.9 Dorsalgia, unspecified (principal); G89.29 Other chronic pain; R14.0 Abdominal distension (gaseous)
CPT/HCPCS: 74177; 80053; 80076; 81003; 85025; 96374; 99284; J1885; Q9967